=== PATIENT | male | born 1950 | race Caucasian/White ===

== ENCOUNTER 2018-03-20 11:29 | Emergency (ER) | END 2018-03-20 14:12 | disposition short-term general hospital (02) ==

== ENCOUNTER 2018-09-03 07:13 | Inpatient (IN) | payer MEDICARE, BC ==
[~2018-09-03] VITALS: Ht 177.8 cm; Wt 72.0 kg
[~2018-09-03 07:13] MED LIST: AMLO-147 PO; ATEN50TA PO; ATOR10TA65 PO; CLON-379 PO; CLOP75TA27 PO; DOXA2TAB61 PO; FAMO20TA18 PO; GUAI5SYR2 PO; HEP5KI SC; HYDR-3671 PO; ISOS30TA67 PO; NICO-524 TRANSDERM
[2018-09-03] MEDS ORDERED: morphine 4 MG/ML VIAL IV STA ×2 (07:45→10:54)
--- NOTE | 2018-09-03 08:36 | ERD ---
ER Documentation Chief Complaint Chief Complaint CHEST PAIN SINCE THIS AM HPI This is a 68-year-old male with a history of hypertension and end-stage renal disease who is on dialysis Wednesday, Wednesday, Wednesday who presents to the [facility] room for evaluation of chest pain. The patient states that he has had a previous open heart surgery and states that he does have a chest pain which is described as sharp pain in the center of his chest with no radiation no associated nausea, vomiting or shortness of breath. The patient came to the ER for evaluation of his symptoms, he called [id number] transport. ROS All systems reviewed and are negative except as per history of present illness. Medications Home Meds Active Scripts Clonidine Hcl* (Clonidine Hcl*) 0.1 Mg Tab, 0.1 MG PO Q6H PRN for SBP>180 mm Hg for 30 Days, TAB Prov:KASSY CHAVIS NP 10/21/15 Guaifenesin-Dextromethorphan* (Robitussin* DM) 100MG/10MG/5ML Syrup, 10 ML PO Q4H PRN for cough for 30 Days Prov:KASSY CHAVIS NP 10/21/15 Atenolol* (Atenolol*) 50 Mg Tablet, 50 MG PO DAILY for 30 Days, TAB Prov:KASSY CHAVIS NP 10/21/15 Amlodipine Besylate* (Amlodipine Besylate*) 10 Mg Tablet, 10 MG PO DAILY for 30 Days, TAB Prov:KASSY CHAVIS NP 10/21/15 Nicotine* (Nicoderm* Patch) 1 Patch Patch, 1 PATCH TRANSDERM DAILY for 30 Days, PATCH Prov:KARLA RICHARDSON 08/25/15 Isosorbide Mononitrate* (Isosorbide Mononitrate*) 30 Mg Tabsr, 30 MG PO DAILY for 30 Days Prov:KARLA RICHARDSON 08/25/15 Hydralazine Hcl* (Hydralazine Hcl*) 25 Mg Tab, 100 MG PO BID for 30 Days, TAB Prov:KARLA RICHARDSON 08/25/15 Heparin Sodium,Porcine/Pf (Heparin Na 5,000 Units/0.5 Ml) 5,000 Unit/0.5 Ml Soln, 5000 UNIT SC BID for 30 Days Prov:KARLA RICHARDSON 08/25/15 Doxazosin Mesylate* (Cardura*) 2 Mg Tab, 4 MG PO HS for 30 Days, TAB Prov:AKRLA RICHARDSON. 08/25/15 Clopidogrel Bisulfate (Clopidogrel) 75 Mg Tab, 75 MG PO DAILY for 30 Days, TAB Prov:KARLA RICHARDSON. 08/25/15 Reported Medications Atorvastatin Calcium (Atorvastatin Calcium) 10 Mg Tablet, 10 MG PO QHS, TAB 08/22/15 Famotidine* (Famotidine*) 20 Mg Tablet, 20 MG PO BID, TAB 08/22/15 Allergies Allergies: Coded Allergies: No Known Allergies (Verified Allergy, Unknown, 10/20/15) PMhx/Soc History of Surgery: Yes Anesthesia Reaction: No Hx Neurological Disorder: No Hx Respiratory Disorders: No Hx Psychiatric Problems: No Hx Miscellaneous Medical Probl: No Hx Alcohol Use: Yes (OCCASIONAL) Hx Substance Use: No Hx Tobacco Use: Yes Smoking Status: Current every day smoker Physical Exam Vitals Vital Signs Date Temp Pulse Resp B/P (MAP) Pulse Ox O2 O2 Flow FiO2 Time Delivery Rate 09/03/18 98.0 89 18 174/71 99 07:27 (105) 09/03/18 Nasal 07:27 Cannula Physical Exam INITIAL VITAL SIGNS: Reviewed by me GENERAL: The patient is well developed and appropriate for usual state of health in no apparent distress HEENT: Pupils equal, round, and reactive to light. EOMI. There is no scleral icterus. NECK: C-spine is soft and supple, there is no meningismus. There is no cervical lymphadenopathy. LUNGS: Clear to auscultation bilaterally. There are no rales, wheezes or rhonchi. HEART: Regular rate and rhythm, no murmurs, clicks, rubs or gallops. ABDOMEN: Soft, non-tender, non-distended. There are bowel sounds in all four quadrants. No rebound or guarding. EXTREMITIES: There is no peripheral cyanosis or edema. No focal swelling or erythema. NEUROLOGICAL: The patient moves all four extremities with 5/5 strength. Cranial nerves II - XII are intact. Normal gait. Alert and oriented SKIN: Dialysis catheter in right anterior chest wall, there is no apparent rash or petechiae. HEME/LYMPHATIC: There is no evidence of excessive bruising or lymphedema. PSYCHIATRIC: The patient does not appear anxious or depressed. Result Diagram: 09/03/18 0745 09/03/18 0745 Results 24 hrs Laboratory Tests Test 09/03/18 07:45 White Blood Count 9.4 10^3/ul Red Blood Count 4.63 10^6/ul Hemoglobin 12.4 g/dl Hematocrit 38.4 % Mean Corpuscular Volume 82.9 fl Mean Corpuscular Hemoglobin 26.8 pg Mean Corpuscular Hemoglobin Concent 32.3 g/dl Red Cell Distribution Width 18.7 % Platelet Count 285 10^3/UL Mean Platelet Volume 10.3 fl Immature Granulocytes % 0.400 % Neutrophils % 65.7 % Lymphocytes % 19.3 % Monocytes % 11.1 % Eosinophils % 2.4 % Basophils % 1.1 % Nucleated Red Blood Cells % 0.0 /100WBC Immature Granulocytes # 0.040 10^3/ul Neutrophils # 6.2 10^3/ul Lymphocytes # 1.8 10^3/ul Monocytes # 1.0 10^3/ul Eosinophils # 0.2 10^3/ul Basophils # 0.1 10^3/ul Nucleated Red Blood Cells # 0.0 10^3/ul Sodium Level 139 mmol/L Potassium Level 4.3 mmol/L Chloride Level 97 mmol/L Carbon Dioxide Level 31 mmol/L Anion Gap 11 Blood Urea Nitrogen 12 mg/dl Creatinine 4.31 mg/dl Est Glomerular Filtrat Rate mL/min 14 mL/min Glucose Level 119 mg/dl Calcium Level 9.5 mg/dl Troponin I 0.114 ng/ml Current Medications Medications Dose Sig/Marcell Start Time Status Last (Trade) Ordered Route PRN Stop Time Admin Dose Reason Admin Morphine 4 mg ONCE STAT 09/03/18 DC 09/03/18 Sulfate IV 07:45 09/03/18 07:59 (morphine) 07:46 Procedures/MDM Chest X-ray 1V Interpreted by me: Soft Tissue: No acute abnormalities Bones: No acute abnormalities Mediastinum/Cardiac Silhouette/Lungs: [No acute abnormalities] EKG: Rate/Rhythm: [Normal Sinus Rhythm] QRS, ST, T-waves: [No changes consistent w/ acute ischemia] Impression: [Sinus rhythm with LVH This 68-year-old male presents to the ER for evaluation of chest pain. The patient does have a multiple comorbidities including a hypertension, end-stage renal disease and CAD. The patient's EKG is nonischemic, chest x-ray is clear. He was given morphine for his pain and his pain is under control at this time. The patient is negative troponin level at this time however given his age and multiple risk factors he will need to be admitted for serial troponins and possible cardiology consult. I have spoken to her panel physician Dr. Bush who accepts the patient at this time. Departure Diagnosis: Primary Impression: Chest pain Additional Impressions: End stage renal disease Coronary artery disease Condition: Stable JENNIFER LICONA DO Sep 03, 2018 08:36
[2018-09-03] MEDS ORDERED: ONDANSETRON 4 MG INJ IV PRN (09:00)
[2018-09-03] MEDS ORDERED: ACETAMINOPHEN 325 MG TAB PO PRN ×2 (09:00→12:00)
--- NOTE | 2018-09-03 10:25 | HP ---
Date/Time of Note Date/Time of Note DATE: 09/03/18 TIME: 10:25 Assessment/Plan VTE Prophylaxis Pharmacological prophylaxis: heparin Lines/Catheters IV Catheter Type (from [facility]): [facility] [facility] Assessment/Plan Hospital Course 68-year-old Persian male with comorbidities include hypertension, pulmonary hypertension, diastolic heart failure, end-stage renal disease on hemodialysis, CAD status post coronary artery bypass grafting, dyslipidemia, prostatic h ypertrophy, and nicotine use who came to the emergency room with chief complaint of chest pain, who will be admitted to inpatient setting for further treatment and evaluation. 1. Chest pain. -Etiology unclear. -Known history of CAD. -Will rule out ACS. -Less likely PE since the patient is saturating well. -Continue dual antiplatelet therapy since he was getting this at home. -Obtain 2D echocardiogram. -Obtain cardiology consult. 2. Hypertension. -Resume antihypertensives. 3. Diastolic heart failure. -No evidence of any decompensation. 4. End-stage renal disease on hemodialysis. -Last hemodialysis on 09/17/2018. -No evidence of fluid overload. -Potassium levels within normal limits -Obtain nephrology evaluation. 5. Dyslipidemia. -Continue statins. 6. Prostate hypertrophy. -Continue doxazosin. 7. Normocytic anemia. -Most probably anemia chronic kidney disease. -Monitor H&H closely. 8. Nicotine use. -Cessation advised -Provide nicotine patch. Plan: The patient will be admitted to inpatient telemetry floor. The patient will be started on a renal diet. The patient will be started on DVT prophylaxis. The patient will remain a full code. Activities will be as tolerated. The rest of the patient's management will be based on the clinical course, inputs from consultants, and the results of diagnostic studies. Based on the patient's clinical presentation, he most probably requires at least 1 midnight's stay for further management and evaluation of his clinical presen tation. The patient was seen in collaboration with Dr. Bush. Result Diagram: 09/03/18 0745 09/03/18 0745 Results 24hrs Laboratory Tests Test 09/03/18 07:45 White Blood Count 9.4 Red Blood Count 4.63 L Hemoglobin 12.4 L Hematocrit 38.4 L Mean Corpuscular Volume 82.9 Mean Corpuscular Hemoglobin 26.8 L Mean Corpuscular Hemoglobin Concent 32.3 Red Cell Distribution Width 18.7 #H Platelet Count 285 Mean Platelet Volume 10.3 Immature Granulocytes % 0.400 Neutrophils % 65.7 Lymphocytes % 19.3 Monocytes % 11.1 H Eosinophils % 2.4 Basophils % 1.1 Nucleated Red Blood Cells % 0.0 Immature Granulocytes # 0.040 H Neutrophils # 6.2 Lymphocytes # 1.8 Monocytes # 1.0 H Eosinophils # 0.2 Basophils # 0.1 Nucleated Red Blood Cells # 0.0 Sodium Level 139 Potassium Level 4.3 Chloride Level 97 Carbon Dioxide Level 31 Anion Gap 11 Blood Urea Nitrogen 12 Creatinine 4.31 H Est Glomerular Filtrat Rate mL/min 14 L Glucose Level 119 Calcium Level 9.5 Troponin I 0.114 HPI/ROS Admit Date/Time Admit Date/Time Hx of Present Illness Reason for admission: Chest pain. Consultants 1. Cardiology. 2. Nephrology. This is a 68-year-old male with past medical history of hypertension, diastolic heart failure, end-stage renal disease on hemodialysis Wednesday/Wednesday/Wednesday, CAD status post coronary artery bypass grafting, dyslipidemia, prostatic hypertrophy, pulmonary hypertension, and nicotine use. The patient came to the emergency room with a chief complaint of chest pain. The patient verbalized that he has been having chest pain for the past few days that was relieved with sublingual nitroglycerin. However, the last chest pain he had was not relieved even with fourth doses of nitroglycerin. The patient also verbalized associated dyspnea. The patient was verbalizing numbness of the face associated with chest pain. The patient denied any fevers or chills. The patient denied any nausea, vomiting, or diaphoresis. The patient verbalized that he has been compliant with his medications. The patient continues to smoke despite his clinical condition. However, he verbalized that he had decreased smoking from 2 packs a day to half a pack a day. The patient had his last hemodialysis on 09/02/2018. In the emergency room, the patient's initial troponins were negative. The patient's chest x-ray was negative for any acute cardiopulmonary findings. The patient was treated with IV morphine for his underlying chest pain in the emergency room. ROS Constitutional: fatigue Eyes: no complaints ENT: no complaints Respiratory: cough, shortness of breath Cardiovascular: chest pain Gastrointestinal: no complaints Genitourinary: no complaints Musculoskeletal: no complaints Skin: no complaints Neurologic: no complaints Endocrine: no complaints Lymphatic: no complaints Psychological: no complaints Immunologic: no complaints Additional Comments CXR IMPRESSION: No evidence for active cardiopulmonary disease. PMH/Family/Social Past Medical History 1. Hypertension. 2. Pulmonary hypertension. 3. Diastolic heart failure. 4. End-stage renal disease on hemodialysis. 5. CAD status post coronary artery bypass grafting. 6. Dyslipidemia. 7. Prostatic hypertrophy. 8. Nicotine use. Medications Current Medications Ondansetron HCl (Zofran Inj) 4 mg ER BRIDGE PRN IV NAUSEA/VOMITING; Start 09/03/18 at 09:00; Stop 09/04/18 at 08:59 Acetaminophen (Tylenol Tab) 650 mg ER BRIDGE PRN PO .MILD PAIN 1-3 OR TEMP; Start 09/03/18 at 09:00; Stop 09/04/18 at 08:59 Coded Allergies: No Known Allergies (Verified Allergy, Unknown, 09/03/18) Past Surgical History 1. CABG. 2. Right hip surgery. 3. Left upper extremity AV fistula placement. Past Surgical Hx: coronary bypass surgery Family History Significant Family History: hypertension Social History Smoking Status: Current every day smoker (Half a pack a day) Drug Use: none Exam/Review of Systems Vital Signs Vitals Vital Signs Date Temp Pulse Resp B/P (MAP) Pulse Ox O2 O2 Flow FiO2 Time Delivery Rate 09/03/18 98.0 89 18 174/71 99 07:27 (105) 09/03/18 Nasal 07:27 Cannula Exam Exam General: Adequately build 68 year-old male lying in bed in no apparent distress. HEENT: Normocephalic, atraumatic. Eyes: Anicteric sclerae, conjunctivae clear. ENT: Nasal septum midline, oral mucosa moist. Neck supple. Respiratory: Bilaterally diminished breath sounds. No use of accessory muscles of respiration. No adventitious breath sounds. Cardiovascular: S1, S2 heard. Regular rate and rhythm. Abdomen: Soft, nontender, and nondistended. Bowel sounds positive in all 4 quadrants. Genitourinary: Deferred. Extremities: No cyanosis, no clubbing, no edema. Peripheral pulses palpable. Left upper extremity christopher from recent surgical AV fistula placement. Neurologic: Cranial nerves II through XII grossly intact. The patient is awake, alert, and oriented. Skin: Normal skin turgor. No skin rashes. COSME ORELLANA NP Sep 03, 2018 10:25
[2018-09-03] MEDS ORDERED: NITR0.4T39 SL (10:53)
[2018-09-03] MEDS ORDERED: SEVE800T16 ORAL (10:53)
[2018-09-03] MEDS ORDERED: ASPI-817 ORAL (10:53)
[2018-09-03] MEDS ORDERED: OMEG-101 ORAL (10:53)
[2018-09-03] MEDS ORDERED: ATOR-2 ORAL (10:53)
[2018-09-03] MEDS ORDERED: METO-319 ORAL (10:53)
[2018-09-03] MEDS ORDERED: LOSA25TA12 ORAL (10:53)
[2018-09-03] MEDS ORDERED: NACL 0.9% 3 ML SYG IV SCH (12:00)
[2018-09-03] MEDS ORDERED: HYDROCODONE/APAP (5/325) TAB PO PRN (12:30)
[2018-09-03] MEDS: NICOTINE (7 MG/24 HR) PATCH TRANSDERM SCH (12:58)
--- NOTE | 2018-09-03 13:28 | CONS ---
Assessment/Plan Assessment/Plan Assessment/Plan (Daily) 1. ESRD: - HD today with routine access care - monitor daily for HD needs 2. chest pain: with elevated trop - cont to trend trop and ekg - cont medical management 3. HTN: - cont current meds and titrate as needed 4. anemia: - no epogen needed at this time 5. BMD: - monitor ca and phos 6. BPH: - cont doxazosin Consultation Date/Type/Reason Admit Date/Time Type of Consult nephrology Reason for Consultation esrd Date/Time of Note DATE: 09/03/18 TIME: 13:21 Hx of Present Illness Pt is a 68yo M with hx of ESRD, HTN, pulm htn, diastolic HF, CAD, HL and BPH who presented with chest pain and shortness of breath. ER evaluation revealed elevated BP with SBP in the 200's and elevated trop. CXR showed no acute disease. He has been on HD for the past 3 months at a center in [place]. He makes small amount of urine. He is currently being dialyzed via his catheter and has a new AVF that was placed in his upper left arm. Past Medical History as above Home Meds Active Scripts Clonidine Hcl* (Clonidine Hcl*) 0.1 Mg Tab, 0.1 MG PO Q6H PRN for SBP>180 mm Hg for 30 Days, TAB Prov:KASSY CHAVIS NP 10/21/15 Guaifenesin-Dextromethorphan* (Robitussin* DM) 100MG/10MG/5ML Syrup, 10 ML PO Q4H PRN for cough for 30 Days Prov:KASSY CHAVIS NP 10/21/15 Atenolol* (Atenolol*) 50 Mg Tablet, 50 MG PO DAILY for 30 Days, TAB Prov:KASSY CHAVIS V. [employer] 10/21/15 Amlodipine Besylate* (Amlodipine Besylate*) 10 Mg Tablet, 10 MG PO DAILY for 30 Days, TAB Prov:KASSY CHAVIS V. [employer] 10/21/15 Nicotine* (Nicoderm* Patch) 1 Patch Patch, 1 PATCH TRANSDERM DAILY for 30 Days, PATCH Prov:KARLA RICHARDSON 08/25/15 Isosorbide Mononitrate* (Isosorbide Mononitrate*) 30 Mg Tabsr, 30 MG PO DAILY for 30 Days Prov:KARLA RICHARDSON. 08/25/15 Hydralazine Hcl* (Hydralazine Hcl*) 25 Mg Tab, 100 MG PO BID for 30 Days, TAB Prov:KARLA RICHARDSON. 08/25/15 Heparin Sodium,Porcine/Pf (Heparin Na 5,000 Units/0.5 Ml) 5,000 Unit/0.5 Ml Soln, 5000 UNIT SC BID for 30 Days Prov:KARLA RICHARDSON. 08/25/15 Doxazosin Mesylate* (Cardura*) 2 Mg Tab, 4 MG PO HS for 30 Days, TAB Prov:KARLA RICHARDSON. 08/25/15 Clopidogrel Bisulfate (Clopidogrel) 75 Mg Tab, 75 MG PO DAILY for 30 Days, TAB Prov:KARLA RICHARDSON. 08/25/15 Reported Medications Nitroglycerin* (Nitrostat*) 0.4 Mg Tab.subl, 0.4 MG SL Q5MIN PRN for CHEST PAIN, BOTTLE 09/03/18 Sevelamer Carbonate (Sevelamer Carbonate) 800 Mg Tablet, 1 TAB ORAL TID 09/03/18 [place]-3 Acid Ethyl Esters ([place]-3 Acid Ethyl Esters) 1 Gm Capsule, 1 CAP ORAL BID 09/03/18 Atorvastatin* (Atorvastatin*) 80 Mg Tablet, 1 TAB ORAL QHS 09/03/18 Losartan Potassium* (Losartan Potassium*) 25 Mg Tablet, 1 TAB ORAL QHS 09/03/18 Metoprolol Succinate* (Toprol XL*) 50 Mg Tab.er.24h, 1 TAB ORAL DAILY 09/03/18 Aspirin* (Aspirin* EC) 81 Mg Tablet.dr, 1 TAB ORAL DAILY 09/03/18 Atorvastatin Calcium (Atorvastatin Calcium) 10 Mg Tablet, 10 MG PO QHS, TAB 08/22/15 Famotidine* (Famotidine*) 20 Mg Tablet, 20 MG PO BID, TAB 08/22/15 Medications Current Medications Ondansetron HCl (Zofran Inj) 4 mg ER BRIDGE PRN IV NAUSEA/VOMITING; Start 09/03/18 at 09:00; Stop 09/04/18 at 08:59 Acetaminophen (Tylenol Tab) 650 mg ER BRIDGE PRN PO .MILD PAIN 1-3 OR TEMP; Start 09/03/18 at 09:00; Stop 09/04/18 at 08:59 IV Flush (NS 3 ml) 3 ml PER PROTOCOL IV ; Start 09/03/18 at 12:00 Acetaminophen (Tylenol Tab) 650 mg Q6H PRN PO .PAIN 1-3 OR TEMP; Start 09/03/18 at 12:00 Heparin Sodium (Porcine) (Heparin (5000 Units/1ml)) 5,000 unit Q8 SC ; Start 09/03/18 at 14:00 Amlodipine Besylate (Norvasc) 10 mg DAILY PO ; Start 09/04/18 at 09:00 Aspirin (Halfprin) 81 mg DAILY PO ; Start 09/04/18 at 09:00 Atorvastatin Calcium (Lipitor) 40 mg QHS PO ; Start 09/03/18 at 21:00 Clopidogrel Bisulfate (plaVIX) 75 mg DAILY PO ; Start 09/04/18 at 09:00 Doxazosin Mesylate (Cardura) 4 mg HS PO ; Start 09/03/18 at 21:00 Famotidine (Pepcid) 20 mg DAILY PO ; Start 09/03/18 at 13:00 Hydralazine HCl (Apresoline) 100 mg BID PO ; Start 09/03/18 at 21:00 Isosorbide Mononitrate (Imdur) 30 mg DAILY PO ; Start 09/04/18 at 09:00 Metoprolol Succinate (Toprol Xl) 50 mg DAILY PO ; Start 09/04/18 at 09:00 Nicotine (Nicoderm 7 Mg/ 24 Hr) 1 patch DAILY TRANSDERM ; Start 09/03/18 at 13:00 Acetaminophen/ Hydrocodone Bitart ([place] (5/325)) 1 tab Q4H PRN PO MODERATE PAIN LEVEL 4-6; Start 09/03/18 at 12:30 Allergies: Coded Allergies: No Known Allergies (Verified Allergy, Unknown, 09/03/18) Past Surgical History 1. CABG. 2. Right hip surgery. 3. Left upper extremity AV fistula placement. Past Surgical Hx: coronary bypass surgery Family History Significant Family History: no pertinent family hx Social History Smoking Status: Current every day smoker (Half a pack a day) Drug Use: none Exam/Review of Systems Exam Vitals Vital Signs Date Temp Pulse Resp B/P (MAP) Pulse Ox O2 O2 Flow FiO2 Time Delivery Rate 09/03/18 91 18 151/87 98 Room Air 12:43 (108) 09/03/18 98.0 07:27 Exam gen nad cv rrr pulm ctab abd soft, nd, nt +bs ext: no edema Results Result Diagram: 09/03/18 0745 09/03/18 0745 Results 24hrs Laboratory Tests Test 09/03/18 07:45 White Blood Count 9.4 Red Blood Count 4.63 L Hemoglobin 12.4 L Hematocrit 38.4 L Mean Corpuscular Volume 82.9 Mean Corpuscular Hemoglobin 26.8 L Mean Corpuscular Hemoglobin Concent 32.3 Red Cell Distribution Width 18.7 #H Platelet Count 285 Mean Platelet Volume 10.3 Immature Granulocytes % 0.400 Neutrophils % 65.7 Lymphocytes % 19.3 Monocytes % 11.1 H Eosinophils % 2.4 Basophils % 1.1 Nucleated Red Blood Cells % 0.0 Immature Granulocytes # 0.040 H Neutrophils # 6.2 Lymphocytes # 1.8 Monocytes # 1.0 H Eosinophils # 0.2 Basophils # 0.1 Nucleated Red Blood Cells # 0.0 Sodium Level 139 Potassium Level 4.3 Chloride Level 97 Carbon Dioxide Level 31 Anion Gap 11 Blood Urea Nitrogen 12 Creatinine 4.31 H Est Glomerular Filtrat Rate mL/min 14 L Glucose Level 119 Calcium Level 9.5 Troponin I 0.114 Medications Medication Current Medications Ondansetron HCl (Zofran Inj) 4 mg ER BRIDGE PRN IV NAUSEA/VOMITING; Start 09/03/18 at 09:00; Stop 09/04/18 at 08:59 Acetaminophen (Tylenol Tab) 650 mg ER BRIDGE PRN PO .MILD PAIN 1-3 OR TEMP; Start 09/03/18 at 09:00; Stop 09/04/18 at 08:59 IV Flush (NS 3 ml) 3 ml PER PROTOCOL IV ; Start 09/03/18 at 12:00 Acetaminophen (Tylenol Tab) 650 mg Q6H PRN PO .PAIN 1-3 OR TEMP; Start 09/03/18 at 12:00 Heparin Sodium (Porcine) (Heparin (5000 Units/1ml)) 5,000 unit Q8 SC ; Start 09/03/18 at 14:00 Amlodipine Besylate (Norvasc) 10 mg DAILY PO ; Start 09/04/18 at 09:00 Aspirin (Halfprin) 81 mg DAILY PO ; Start 09/04/18 at 09:00 Atorvastatin Calcium (Lipitor) 40 mg QHS PO ; Start 09/03/18 at 21:00 Clopidogrel Bisulfate (plaVIX) 75 mg DAILY PO ; Start 09/04/18 at 09:00 Doxazosin Mesylate (Cardura) 4 mg HS PO ; Start 09/03/18 at 21:00 Famotidine (Pepcid) 20 mg DAILY PO ; Start 09/03/18 at 13:00 Hydralazine HCl (Apresoline) 100 mg BID PO ; Start 09/03/18 at 21:00 Isosorbide Mononitrate (Imdur) 30 mg DAILY PO ; Start 09/04/18 at 09:00 Metoprolol Succinate (Toprol Xl) 50 mg DAILY PO ; Start 09/04/18 at 09:00 Nicotine (Nicoderm 7 Mg/ 24 Hr) 1 patch DAILY TRANSDERM ; Start 09/03/18 at 13:00 Acetaminophen/ Hydrocodone Bitart ([place] (5/325)) 1 tab Q4H PRN PO MODERATE PAIN LEVEL 4-6; Start 09/03/18 at 12:30 JAVIER RANDLE MD Sep 03, 2018 13:28
[2018-09-03] MEDS: FAMOTIDINE 20 MG TAB PO SCH (13:47)
[2018-09-03 13:50] VITALS: BP 178/84; PULSE 95; RESP 18
[2018-09-03] MEDS: HEPARIN 5,000 UNIT/1 ML VIAL SC SCH ×2 (13:56→22:07)
[2018-09-03 14:05] VITALS: Ht 177.8 cm; Wt 72.0 kg
[2018-09-03 15:05] VITALS: BP 165/75; PULSE 92; RESP 18
[2018-09-03 16:11] VITALS: PULSE 89
--- NOTE | 2018-09-03 19:21 | RADRPT ---
Echocardiogram Report Patient Name: Radha CALIX ID: [id number] : 1950 (68y 2m)Study Date: 09/03/2018 2:07:17 PM Gender: Himanshuion #: [id number] Tech: Dat Hurley [facility] Location: [address] Ref.Physician: COSME ORELLANA Height(Cm): BSA: Weight(Kg): Quality: AdequateAccount #: Procedures: Echocardiographic Report: Transthoracic echocardiogram with complete 2D, M-Mode, and doppler examination. Indications: Chest Pain. Measurements: 2D/M Mode Doppler Measurement Value Normal Range Measurement Value Normal Range LVIDd 2D 5.5 [ 4.2 - 5.8 ] cm AV Peak Zeb 1.7 [ 100.0 - 170.0 ] cm/se c LVIDs 2D 4.5 [ 2.5 - 4.0 ] cm AV Peak PG 12.0 [ 2.0 - 9.0 ] mmHg LVPWd 2D 1.2 [ 0.6 - 1.0 ] cm LVOT Peak Zeb 1.0 [ 70.0 - 110.0 ] cm/sec IVSd 2D 1.1 [ 0.6 - 1.0 ] cm LVOT Peak PG 4.0 [ 2.0 - 6.0 ] mmHg AoR Diam 2D 2.5 [ 2.6 - 3.4 ] cm MV E Peak Zeb 0.7 [ 60.0 - 130.0 ] cm/sec EDV 2D 150.0 [ 62.0 - 150.0 ] ml MV A Peak Zeb 1.0 [ 100.0 - 120.0 ] cm/se c ESV 2D 91.5 [ 21.0 - 61.0 ] ml MV E/A 0.7 [ 0.8 - 1.5 ] ratio EF 2D 39.0 [ 52.0 - 72.0 ] percent MV PHT 35.0 [ 20.0 - 100.0 ] msec LA Dimen 2D 3.2 [ 3.0 - 4.0 ] cm MV Decel Time 120 [ 104 - 258 ] msec MV Decel Queens 6 Lat E` Zeb 0.1 [ 10.0 - 15.0 ] cm/sec Lateral E/E` 11.0 [ 1.0 - 2.0 ] ratio Med E` Zeb 0.1 cm/sec MV E/A 0.7 [ 0.8 - 1.5 ] ratio MVA PHT 6.3 [ 2.0 - 4.0 ] cm2 TR Peak Zeb 2.2 [ 100.0 - 280.0 ] cm/se c TR Peak PG 20.0 mmHg RVSP 20.0 [ 10.0 - 36.0 ] mmHg RA Pressure 3.0 mmHg Findings: Left Ventricle: Mild concentric left ventricular hypertrophy. Moderate left ventricular systolic dysfunction. Ejection fraction is visually estimated at 35-40 %. Tissue Doppler/Mitral Doppler indices are consistent with impaired relaxation (Stage I diastolic dysfunction). Multiple segmental wall motion abnormalities. Right Ventricle: Normal right ventricular size. Normal right ventricular systolic function. Left Atrium: The left atrium is normal in size. Right Atrium: The right atrium is normal in size. Atrial Septum: Normal atrial septum. Mitral Valve: Mild mitral annular calcification. Trace mitral regurgitation. Aortic Valve: No significant aortic stenosis or insufficiency. No aortic regurgitation. Tricuspid Valve: Normal appearance of the tricuspid valve. Estimated peak PA systolic pressure 23 mmHg. There is trace tricuspid regurgitation. Pulmonic Valve: Normal pulmonic valve appearance. No evidence of pulmonic regurgitation. Pericardium: Normal pericardium with no significant pericardial effusion. Aorta: Normal aortic root. IVC: Normal size and normal respiratory collapse consistent with normal right atrial pressure. Pulmonary Artery: Not well visualized. Conclusions: Mild concentric left ventricular hypertrophy. Moderate left ventricular systolic dysfunction. Ejection fraction is visually estimated at 35-40 %. Tissue Doppler/Mitral Doppler indices are consistent with impaired relaxation (Stage I diastolic dysfunction). Multiple segmental wall motion abnormalities. Mild mitral annular calcification. Trace mitral regurgitation. Normal appearance of the tricuspid valve. Estimated peak PA systolic pressure 23 mmHg. There is trace tricuspid regurgitation. Normal pericardium with no significant pericardial effusion. Electronically Signed By: Jarred Contreras 2018-09-03 19:20:53 PDT
[2018-09-03 19:51] VITALS: BP 174/84; PULSE 89; RESP 20
[2018-09-03 20:00] VITALS: PULSE 86
--- NOTE | 2018-09-03 20:12 | CONS ---
DATE OF ADMISSION: 09/03/2018 DATE OF CONSULTATION: 09/03/2018 REASON FOR CONSULTATION: Chest pain, assess heart failure. REQUESTING PHYSICIAN: Adiel Valentin from the hospitalist service. HISTORY OF PRESENT ILLNESS: Mr. Mendez is a very pleasant 68-year-old male with history of prior m yocardial infarction, coronary artery disease, status post coronary artery bypass graft surgery 04/19 15, cardiomyopathy with mildly depressed left ventricular ejection fraction approximately 40-44%, hyp ertension, dyslipidemia, chronic kidney disease, tobacco intake who presented with complaints of subs ternal chest pain, poorly described. The patient describes the chest pain as sharp in the center of his chest without radiation. Upon arrival in the Emergency Department, temperature was 98, blood pre ssure 174/71, pulse 89, respiratory rate 18, satting 99%. The patient's labs were notable for white count 9.4, hemoglobin 12.4, and platelet count 285. Sodium 139, potassium 4.3, creatinine 4.3, BUN o f 12. Troponin initially was negative and then positive at 0.891. The patient's chest x-ray reveale d no evidence for acute cardiopulmonary abnormalities. The patient's electrocardiogram was sinus tac hycardia, rate 100, normal axis, left ventricular rate ____ criteria with secondary repolarization ab normalities, possible superimposed ischemic changes. The patient has been admitted to the floor and since admit to floor has had a second troponin which is positive. The patient's systolic blood press ures in the Emergency Department did remain high into the 170s. PAST MEDICAL HISTORY: As above in HPI. MEDICATIONS CURRENTLY IN HOSPITAL: 1. Norvasc 10 mg a day. 2. Aspirin 81 mg daily. 3. Plavix 75 daily. 4. Imdur 30 mg daily. 5. Toprol-XL 50 mg daily. 6. Lipitor 40 mg at bedtime. 7. Cardura 40 mg at bedtime. 8. Hydralazine 100 mg b.i.d. 9. Heparin 5000 subQ q.8 p.r.n. 10. Zofran p.r.n. 11. Tylenol p.r.n. ALLERGIES: NO KNOWN DRUG ALLERGIES. SOCIAL HISTORY: Positive tobacco, social ETOH, no illicit drug use. FAMILY HISTORY: No family history of sudden cardiac or early CAD. REVIEW OF SYSTEMS: As above in HPI. CONSTITUTIONAL: No fevers, chills. PULMONARY: Shortness of breath. CARDIOVASCULAR: No current chest pain. GASTROINTESTINAL: No vomiting. GENITOURINARY: No hematuria. PSYCHIATRIC: No documented psychiatric history. NEUROLOGIC: No documented history of CVA. ENDOCRINE: No documented history of diabetes mellitus. PHYSICAL EXAMINATION: VITAL SIGNS: Temperature 97.4, blood pressure most recently 165/75, pulse 92, respiratory rate 18, s at 94%. GENERAL: The patient is alert, awake, no acute distress. NECK: JVP approximately 8 to 9 cm of water. CHEST: Fair air movement throughout. HEART: Regular rate and rhythm. Normal S1 and S2, I/ systolic murmur. Nondisplaced PMI. ABDOMEN: Positive bowel sounds, soft. EXTREMITIES: No significant pitting edema, 1+ pulses bilateral posterior tibial. LABORATORY DATA: Most recently from today. No further labs for my review at this time. IMAGING STUDIES: As above in HPI revealing no acute cardiopulmonary abnormalities. ELECTROCARDIOGRAM: As above in HPI. No further electrocardiograms for my review at this time. IMPRESSION: 1. Positive troponin, minimal in setting of no history of general disease, but ongoing chest pain, h istory of coronary artery bypass graft. 2. Chest pain on admit. 3. Hypertension, uncontrolled. 4. Dyslipidemia. 5. End-stage renal disease on hemodialysis. 6. Benign prostatic hypertrophy. 7. Anemia. RECOMMENDATIONS: 1. At this time, I would maintain patient on telemetry monitoring to follow rhythm and rates closely . 2. Continue to trend the patient's cardiac enzymes, assess for significant ongoing cardiac damage. 3. Continue the patient's dual antiplatelet therapy with aspirin and Plavix. 4. Continue the patient's current antihypertensives with Toprol, Cardura, hydralazine, and Norvasc. Follow blood pressure after with further titration as necessary to improve overall systolic blood pr essure control. Continue the patient's Imdur for antianginal effect. 5. Continue patient's heparin 5000 subQ q.3 at this time. 6. Check a 2D echo for reassessment of patient's ejection fraction, wall motion, rule out any major abnormalities. 7. If patient continues to remain chest pain free at this time and has no significant increase in tr oponin, we will likely place patient in for a cardiac stress test to take place first in the morning to further assess significance of positive troponin. ____ now. Thank you for allowing me to take part in the care of this patient. I will continue to follow very c losely with you with recommendations to be made as the patient progresses through inpatient hospital clinical course. Dictated By: WILMER HOLLOWAY MD J[facility]/ZACHARY Conf#: [id number] DID#: [id number] CC: ADIEL VALENTIN NP; WILMER ALLISON MD;*[facility]*
[2018-09-03] MEDS ORDERED: ATORVASTATIN 10 MG TAB PO SCH (21:00)
[2018-09-03] MEDS: ATORVASTATIN 40 MG TAB PO SCH (21:56)
[2018-09-03 23:50] VITALS: BP_SYST 180; BP_DIAS 102; BP_DIAS 113; PULSE 90; PULSE 94; RESP 19
[2018-09-04] VITALS (18 sets, daily range): BP systolic 97–191; BP diastolic 56–116; PULSE 80–114; RESP 18–20
[2018-09-04] MEDS: DOXAZOSIN 2 MG TAB PO SCH ×2 (00:47→20:19)
[2018-09-04] MEDS ORDERED: ONDANSETRON 4 MG INJ IV ONE (02:27)
[2018-09-04] MEDS: HEPARIN 1000 UNITS/ML 10 ML INJ CATHETER SCH (02:54)
[2018-09-04] MEDS ORDERED: NITROGLYCERIN (SL) 0.4 MG TAB SL ONE (04:00)
[2018-09-04] MEDS ORDERED: morphine 2 MG INJ IV ONE (04:06)
[2018-09-04] MEDS: HEPARIN 5,000 UNIT/1 ML VIAL SC SCH ×3 (06:42→21:37)
[2018-09-04] MEDS: NICOTINE (7 MG/24 HR) PATCH TRANSDERM SCH (08:08)
[2018-09-04] MEDS: ASPIRIN (EC) 81 MG TAB PO SCH (08:09)
[2018-09-04] MEDS: ISOSORBIDE MONONITRATE(SR)30 MG TAB PO SCH (08:10)
[2018-09-04] MEDS: AMLODIPINE 10 MG TAB PO SCH (08:10)
[2018-09-04] MEDS: FAMOTIDINE 20 MG TAB PO SCH (08:10)
[2018-09-04] MEDS: CLOPIDOGREL 75 MG TAB PO SCH (08:10)
[2018-09-04] MEDS: METOPROLOL (XL) 50 MG TAB PO SCH (08:10)
[2018-09-04] MEDS ORDERED: ISOSORBIDE MONONITRATE(SR)30 MG TAB PO SCH (09:00)
--- NOTE | 2018-09-04 09:40 | PN ---
Date/Time of Note Date/Time of Note DATE: 09/04/18 TIME: 09:35 Assessment/Plan VTE Prophylaxis Risk score (from Ns)>0 risk: 4 SCD applied (from Nsg): Yes Pharmacological prophylaxis: heparin Lines/Catheters [facility] permacath Assessment/Plan Hospital Course SUBJECTIVE: Denies any chest pain. OBJECTIVE: Physical Exam General: Adequately build 68 year-old male lying in bed in no apparent distress. HEENT: Normocephalic, atraumatic. Eyes: Anicteric sclerae, conjunctivae clear. ENT: Nasal septum midline, oral mucosa moist. Neck supple. Respiratory: Bilaterally diminished breath sounds. No use of accessory muscles of respiration. No adventitious breath sounds. Cardiovascular: S1, S2 heard. Regular rate and rhythm. Abdomen: Soft, nontender, and nondistended. Bowel sounds positive in all 4 quadrants. Genitourinary: Deferred. Extremities: No cyanosis, no clubbing, no edema. Peripheral pulses palpable. Left upper extremity christopher from recent surgical AV fistula placement. Neurologic: Cranial nerves II through XII grossly intact. The patient is awake, alert, and oriented. Skin: Normal skin turgor. No skin rashes. Labs & Vitals per chart ASSESSMENT & PLAN 68-year-old [place] male with comorbidities include hypertension, pulmonary hypertension, diastolic heart failure, end-stage renal disease on hemodialysis, CAD status post coronary artery bypass grafting, dyslipidemia, prostatic hypertrophy, and nicotine use who came to the emergency room with chief complaint of chest pain, who was admitted to inpatient setting for further treatment and evaluation. 1. NSTEMI. -Known history of CAD. -Continue dual antiplatelet therapy since he was getting this at home. -Cardiology following. -Plan for cardiac stress test today. 2. Hypertension. -Continue antihypertensives. 3. Diastolic heart failure. -No evidence of any decompensation. 4. End-stage renal disease on hemodialysis. -Last hemodialysis on 09/17/2018. -No evidence of fluid overload. -Potassium levels within normal limits -Nephrology following. 5. Dyslipidemia. -Continue statins. 6. Prostate hypertrophy. -Continue doxazosin. 7. Normocytic anemia. -Most probably anemia chronic kidney disease. -Monitor H&H closely. 8. Nicotine use. -Cessation advised -On a nicotine patch. 9. Fluids, electrolytes, and nutrition. -Renal diet. 10. DVT prophylaxis. -Subcutaneous heparin. 11. Plan. -Continue telemetry monitoring. -Await cardiac stress test. The patient was seen in collaboration with Dr. Bush. Result Diagram: 09/04/18 0623 09/04/18 0623 Results 24hrs Laboratory Tests Test 09/03/18 14:13 09/03/18 14:14 09/03/18 19:37 09/04/18 00:54 Hemoglobin A1c 5.7 Creatine Kinase 58 59 62 Creatine Kinase Index 6.9 6.2 4.8 Creatinine Kinase MB 4.03 H 3.68 H 3.00 H (Mass) Troponin I 0.891 *H 2.050 *H 2.450 *H Hepatitis B Surface NEGATIVE Antigen Hepatitis B Core NEGATIVE Total Antibody Hepatitis C Antibody NEGATIVE Test 09/04/18 06:23 White Blood Count 10.5 Red Blood Count 4.41 L Hemoglobin 12.0 L Hematocrit 36.7 L Mean Corpuscular Volume 83.2 Mean Corpuscular 27.2 L Hemoglobin Mean Corpuscular 32.7 Hemoglobin Concent Red Cell Distribution 18.6 H Width Platelet Count 274 Mean Platelet Volume 10.7 H Immature Granulocytes % 0.500 H Neutrophils % 80.2 H Lymphocytes % 11.1 L Monocytes % 7.4 Eosinophils % 0.2 Basophils % 0.6 Nucleated Red Blood 0.0 Cells % Immature Granulocytes # 0.050 H Neutrophils # 8.4 H Lymphocytes # 1.2 Monocytes # 0.8 Eosinophils # 0.0 Basophils # 0.1 Nucleated Red Blood 0.0 Cells # Sodium Level 137 Potassium Level 4.7 Chloride Level 100 Carbon Dioxide Level 26 Anion Gap 11 Blood Urea Nitrogen 12 Creatinine 3.85 H Est Glomerular Filtrat 16 L Rate mL/min Glucose Level 119 Calcium Level 9.3 Phosphorus Level 3.5 Magnesium Level 2.1 Creatine Kinase 49 Creatine Kinase Index 4.7 Creatinine Kinase MB 2.28 (Mass) Troponin I 1.550 *H Triglycerides Level 195 H Cholesterol Level 218 H LDL Cholesterol, 143 Calculated HDL Cholesterol 36 Cholesterol/HDL Ratio 6.0 Exam/Review of Systems Exam Vitals Vital Signs Date Temp Pulse Resp B/P (MAP) Pulse Ox O2 O2 Flow FiO2 Time Delivery Rate 09/04/18 106 08:00 09/04/18 98.0 18 130/70 97 Nasal 07:00 (90) Cannula Intake and Output 09/03/18 09/03/18 09/04/18 1515:00 23:00 07:00 IntakeIntake Total 300 ml OutputOutput Total 1700 ml BalanceBalance 300 ml -1700 ml Results Results 24hrs Laboratory Tests Test 09/03/18 14:13 09/03/18 14:14 09/03/18 19:37 09/04/18 00:54 Hemoglobin A1c 5.7 Creatine Kinase 58 59 62 Creatine Kinase Index 6.9 6.2 4.8 Creatinine Kinase MB 4.03 H 3.68 H 3.00 H (Mass) Troponin I 0.891 *H 2.050 *H 2.450 *H Hepatitis B Surface NEGATIVE Antigen Hepatitis B Core NEGATIVE Total Antibody Hepatitis C Antibody NEGATIVE Test 09/04/18 06:23 White Blood Count 10.5 Red Blood Count 4.41 L Hemoglobin 12.0 L Hematocrit 36.7 L Mean Corpuscular Volume 83.2 Mean Corpuscular 27.2 L Hemoglobin Mean Corpuscular 32.7 Hemoglobin Concent Red Cell Distribution 18.6 H Width Platelet Count 274 Mean Platelet Volume 10.7 H Immature Granulocytes % 0.500 H Neutrophils % 80.2 H Lymphocytes % 11.1 L Monocytes % 7.4 Eosinophils % 0.2 Basophils % 0.6 Nucleated Red Blood 0.0 Cells % Immature Granulocytes # 0.050 H Neutrophils # 8.4 H Lymphocytes # 1.2 Monocytes # 0.8 Eosinophils # 0.0 Basophils # 0.1 Nucleated Red Blood 0.0 Cells # Sodium Level 137 Potassium Level 4.7 Chloride Level 100 Carbon Dioxide Level 26 Anion Gap 11 Blood Urea Nitrogen 12 Creatinine 3.85 H Est Glomerular Filtrat 16 L Rate mL/min Glucose Level 119 Calcium Level 9.3 Phosphorus Level 3.5 Magnesium Level 2.1 Creatine Kinase 49 Creatine Kinase Index 4.7 Creatinine Kinase MB 2.28 (Mass) Troponin I 1.550 *H Triglycerides Level 195 H Cholesterol Level 218 H LDL Cholesterol, 143 Calculated HDL Cholesterol 36 Cholesterol/HDL Ratio 6.0 Medications Medication Current Medications IV Flush (NS 3 ml) 3 ml PER PROTOCOL IV ; Start 09/03/18 at 12:00 Acetaminophen (Tylenol Tab) 650 mg Q6H PRN PO .PAIN 1-3 OR TEMP; Start 09/03/18 at 12:00 Heparin Sodium (Porcine) (Heparin (5000 Units/1ml)) 5,000 unit Q8 SC Last administered on 09/04/18 06:42; Admin Dose 5,000 UNIT; Start 09/03/18 at 14:00 Amlodipine Besylate (Norvasc) 10 mg DAILY PO Last administered on 09/04/18 08:10; Admin Dose 10 MG; Start 09/04/18 at 09:00 Aspirin (Halfprin) 81 mg DAILY PO Last administered on 09/04/18 08:09; Admin Dose 81 MG; Start 09/04/18 at 09:00 Atorvastatin Calcium (Lipitor) 40 mg QHS PO Last administered on 09/03/18 21:56; Admin Dose 40 MG; Start 09/03/18 at 21:00 Clopidogrel Bisulfate (plaVIX) 75 mg DAILY PO Last administered on 09/04/18 08:10; Admin Dose 75 MG; Start 09/04/18 at 09:00 Doxazosin Mesylate (Cardura) 4 mg HS PO Last administered on 09/04/18 00:47; Admin Dose 4 MG; Start 09/03/18 at 21:00 Famotidine (Pepcid) 20 mg DAILY PO Last administered on 09/04/18 08:10; Admin Dose 20 MG; Start 09/03/18 at 13:00 Hydralazine HCl (Apresoline) 100 mg BID PO Last administered on 09/04/18 08:10; Admin Dose 100 MG; Start 09/03/18 at 21:00 Metoprolol Succinate (Toprol Xl) 50 mg DAILY PO Last administered on 09/04/18 08:10; Admin Dose 50 MG; Start 09/04/18 at 09:00 Nicotine (Nicoderm 7 Mg/ 24 Hr) 1 patch DAILY TRANSDERM ; Start 09/03/18 at 13:00 Acetaminophen/ Hydrocodone Bitart ([place] (5/325)) 1 tab Q4H PRN PO MODERATE PAIN LEVEL 4-6; Start 09/03/18 at 12:30 Isosorbide Mononitrate (Imdur) 60 mg DAILY PO Last administered on 09/04/18 08:10; Admin Dose 60 MG; Start 09/04/18 at 09:00 Heparin Sodium (Porcine) (Heparin (1000 Units/ml)) 3,200 unit AFTER DIALYSIS CATHETER Last administered on 09/04/18 02:54; Admin Dose 3,200 UNIT; Start 09/04/18 at 00:00 COSME ORELLANA NP Sep 04, 2018 09:39
[2018-09-04] MEDS ORDERED: REGADENOSON 0.4 MG/5 ML SYG ONE (12:29)
--- NOTE | 2018-09-04 12:50 | PN ---
Date/Time of Note Date/Time of Note DATE: 09/04/18 TIME: 12:50 Assessment/Plan Lines/Catheters IV Catheter Type (from [facility]): permacath Assessment/Plan Chief Complaint/Hosp Course ESRD & central stenosis: No new events from vascular standpoint. -Can remove every other LUE christopher for now -Continue with Dialysis via left CVC for now Subjective 24 Hr Interval Summary Constitutional: no complaints Exam/Review of Systems Vital Signs Vitals Vital Signs Date Temp Pulse Resp B/P (MAP) Pulse Ox O2 O2 Flow FiO2 Time Delivery Rate 09/05/18 98.0 64 18 110/65 98 Room Air 07:12 (80) Intake and Output 09/04/18 09/04/18 09/05/18 1515:00 23:00 07:00 IntakeIntake Total 460 ml OutputOutput Total 240 ml BalanceBalance 220 ml Results Result Diagram: 09/05/18 0524 09/05/18 0524 RENA VERDUZCO MD Sep 04, 2018 12:50
--- NOTE | 2018-09-04 13:23 | CONS ---
Assessment/Plan Assessment/Plan Hospital Course (Demo Recall) IMPRESSION: 1. Positive troponin, minimal in setting of no history of general disease, but ongoing chest pain, history of coronary artery bypass graft.-uptrended overnight with no sig incrase in CK-MB in the setting of renal failure 2. Chest pain on admit. 3. Hypertension, uncontrolled. 4. Dyslipidemia. 5. End-stage renal disease on hemodialysis. 6. Benign prostatic hypertrophy. 7. Anemia. Recc: -Tele -tesnd cardiac enzymes -lexiscan today to assess significance of positive troponin in the setting of renal; failure -Continue asa/plavix/statin -Continue current BB/hydralazine/imdur -smoking cessation - will f/u echo -possible need for progression to [facility] Consultation Date/Type/Reason Admit Date/Time Sep 03, 2018 at 08:32 Initial Consult Date 09/03/18 Type of Consult Cardiology Reason for Consultation Chest pain/nstemi Requesting Provider: COSME ORELLANA NP Date/Time of Note DATE: 09/04/18 TIME: 13:19 Exam/Review of Systems Vital Signs Vitals Vital Signs Date Temp Pulse Resp B/P (MAP) Pulse Ox O2 O2 Flow FiO2 Time Delivery Rate 09/04/18 97 12:00 09/04/18 97.8 18 113/56 96 Nasal 11:00 (75) Cannula Intake and Output 09/03/18 09/03/18 09/04/18 1515:00 23:00 07:00 IntakeIntake Total 300 ml OutputOutput Total 1700 ml BalanceBalance 300 ml -1700 ml Exam Exam Review of Systems: CONSTITUTIONAL: No fevers, chills. PULMONARY: No sob CARDIOVASCULAR: No current chest pain GASTROINTESTINAL: No nausea/vomiting. GENITOURINARY: No hematuria/dysuria. MUSCULOSKELETAL: No myagias/arthalgias. PSYCHIATRIC: The patient denies depression. NEUROLOGIC: No weakness Constitutional: alert, oriented Psych: no complaints Head: normocephalic ENMT: mucosa pink and moist Neck: supple, jvd (9 cm water) Respiratory: clear to auscultation Cardiovascular: regular rate and rhythm Gastrointestinal: soft, non-tender Musculoskeletal: muscle tone (normal) Extremities: edema (none) Neurological: other (No focal deficits) Labs Result Diagram: 4/7/19 0623 4/7/19 0623 Results 24hrs Laboratory Tests Test 09/03/18 14:13 09/03/18 14:14 09/03/18 19:37 09/04/18 00:54 Hemoglobin A1c 5.7 Creatine Kinase 58 59 62 Creatine Kinase Index 6.9 6.2 4.8 Creatinine Kinase MB 4.03 H 3.68 H 3.00 H (Mass) Troponin I 0.891 *H 2.050 *H 2.450 *H Hepatitis B Surface NEGATIVE Antigen Hepatitis B Core NEGATIVE Total Antibody Hepatitis C Antibody NEGATIVE Test 09/04/18 06:23 09/04/18 12:11 White Blood Count 10.5 Red Blood Count 4.41 L Hemoglobin 12.0 L Hematocrit 36.7 L Mean Corpuscular Volume 83.2 Mean Corpuscular 27.2 L Hemoglobin Mean Corpuscular 32.7 Hemoglobin Concent Red Cell Distribution 18.6 H Width Platelet Count 274 Mean Platelet Volume 10.7 H Immature Granulocytes % 0.500 H Neutrophils % 80.2 H Lymphocytes % 11.1 L Monocytes % 7.4 Eosinophils % 0.2 Basophils % 0.6 Nucleated Red Blood 0.0 Cells % Immature Granulocytes # 0.050 H Neutrophils # 8.4 H Lymphocytes # 1.2 Monocytes # 0.8 Eosinophils # 0.0 Basophils # 0.1 Nucleated Red Blood 0.0 Cells # Sodium Level 137 Potassium Level 4.7 Chloride Level 100 Carbon Dioxide Level 26 Anion Gap 11 Blood Urea Nitrogen 12 Creatinine 3.85 H Est Glomerular Filtrat 16 L Rate mL/min Glucose Level 119 Calcium Level 9.3 Phosphorus Level 3.5 Magnesium Level 2.1 Creatine Kinase 49 54 Creatine Kinase Index 4.7 3.3 Creatinine Kinase MB 2.28 1.80 (Mass) Troponin I 1.550 *H 1.370 *H Triglycerides Level 195 H Cholesterol Level 218 H LDL Cholesterol, 143 Calculated HDL Cholesterol 36 Cholesterol/HDL Ratio 6.0 Medications Medications Current Medications IV Flush (NS 3 ml) 3 ml PER PROTOCOL IV ; Start 09/03/18 at 12:00 Acetaminophen (Tylenol Tab) 650 mg Q6H PRN PO .PAIN 1-3 OR TEMP; Start 09/03/18 at 12:00 Heparin Sodium (Porcine) (Heparin (5000 Units/1ml)) 5,000 unit Q8 SC Last administered on 09/04/18at 06:42; Admin Dose 5,000 UNIT; Start 09/03/18 at 14:00 Amlodipine Besylate (Norvasc) 10 mg DAILY PO Last administered on 09/04/18 08:10; Admin Dose 10 MG; Start 09/04/18 at 09:00 Aspirin (Halfprin) 81 mg DAILY PO Last administered on 09/04/18 08:09; Admin Dose 81 MG; Start 09/04/18 at 09:00 Atorvastatin Calcium (Lipitor) 40 mg QHS PO Last administered on 09/03/18 21:56; Admin Dose 40 MG; Start 09/03/18 at 21:00 Clopidogrel Bisulfate (plaVIX) 75 mg DAILY PO Last administered on 09/04/18 08:10; Admin Dose 75 MG; Start 09/04/18 at 09:00 Doxazosin Mesylate (Cardura) 4 mg HS PO Last administered on 09/04/18 00:47; Admin Dose 4 MG; Start 09/03/18 at 21:00 Famotidine (Pepcid) 20 mg DAILY PO Last administered on 09/04/18 08:10; Admin Dose 20 MG; Start 09/03/18 at 13:00 Hydralazine HCl (Apresoline) 100 mg BID PO Last administered on 09/04/18 08:10; Admin Dose 100 MG; Start 09/03/18 at 21:00 Metoprolol Succinate (Toprol Xl) 50 mg DAILY PO Last administered on 09/04/18 08:10; Admin Dose 50 MG; Start 09/04/18 at 09:00 Nicotine (Nicoderm 7 Mg/ 24 Hr) 1 patch DAILY TRANSDERM ; Start 09/03/18 at 13:00 Acetaminophen/ Hydrocodone Bitart ([place] (5/325)) 1 tab Q4H PRN PO MODERATE PAIN LEVEL 4-6; Start 09/03/18 at 12:30 Isosorbide Mononitrate (Imdur) 60 mg DAILY PO Last administered on 09/04/18 08:10; Admin Dose 60 MG; Start 09/04/18 at 09:00 Heparin Sodium (Porcine) (Heparin (1000 Units/ml)) 3,200 unit AFTER DIALYSIS CATHETER Last administered on 09/04/18 02:54; Admin Dose 3,200 UNIT; Start 09/04/18 at 00:00 WILMER HOLLOWAY Apr 7, 2019 13:23
[2018-09-04] MEDS ORDERED: SOD CHLORIDE 0.9% 1,000 ML IV PRN (13:29)
--- NOTE | 2018-09-04 13:29 | CONS ---
Assessment/Plan Assessment/Plan Assessment/Plan (Daily) 1. ESRD: chronic schedule MWF - HD tomorrow. routine access care (permacatheter and new AVF) - monitor daily for HD needs 2. chest pain: with elevated trop - cont to trend trop - stress test today - cont medical management - cardiology following 3. HTN: - cont current meds and titrate as needed 4. anemia: - no epogen needed at this time 5. BMD: - monitor ca and phos 6. BPH: - cont doxazosin Consultation Date/Type/Reason Admit Date/Time Sep 03, 2018 at 08:32 Initial Consult Date Type of Consult nephrology Requesting Provider: COSME ORELLANA NP Date/Time of Note DATE: 09/04/18 TIME: 13:28 24 HR Interval Summary Free Text/Dictation s/p HD yesterday with shortened treatment due to chest pain, diaphoresis continues to have intermittent chest pain denies shortness of breath dAngelesw rn gen nad cv rrr pulm ctab abd soft, nd, nt +bs ext: no edema Exam/Review of Systems Exam Vitals Vital Signs Date Temp Pulse Resp B/P (MAP) Pulse Ox O2 O2 Flow FiO2 Time Delivery Rate 09/04/18 97 12:00 09/04/18 97.8 18 113/56 96 Nasal 11:00 (75) Cannula Intake and Output 09/03/18 09/03/18 09/04/18 1515:00 23:00 07:00 IntakeIntake Total 300 ml OutputOutput Total 1700 ml BalanceBalance 300 ml -1700 ml Results Result Diagram: 09/04/18 0623 09/04/18 0623 Results 24hrs Laboratory Tests Test 09/03/18 14:13 09/03/18 14:14 09/03/18 19:37 09/04/18 00:54 Hemoglobin A1c 5.7 Creatine Kinase 58 59 62 Creatine Kinase Index 6.9 6.2 4.8 Creatinine Kinase MB 4.03 H 3.68 H 3.00 H (Mass) Troponin I 0.891 *H 2.050 *H 2.450 *H Hepatitis B Surface NEGATIVE Antigen Hepatitis B Core NEGATIVE Total Antibody Hepatitis C Antibody NEGATIVE Test 09/04/18 06:23 09/04/18 12:11 White Blood Count 10.5 Red Blood Count 4.41 L Hemoglobin 12.0 L Hematocrit 36.7 L Mean Corpuscular Volume 83.2 Mean Corpuscular 27.2 L Hemoglobin Mean Corpuscular 32.7 Hemoglobin Concent Red Cell Distribution 18.6 H Width Platelet Count 274 Mean Platelet Volume 10.7 H Immature Granulocytes % 0.500 H Neutrophils % 80.2 H Lymphocytes % 11.1 L Monocytes % 7.4 Eosinophils % 0.2 Basophils % 0.6 Nucleated Red Blood 0.0 Cells % Immature Granulocytes # 0.050 H Neutrophils # 8.4 H Lymphocytes # 1.2 Monocytes # 0.8 Eosinophils # 0.0 Basophils # 0.1 Nucleated Red Blood 0.0 Cells # Sodium Level 137 Potassium Level 4.7 Chloride Level 100 Carbon Dioxide Level 26 Anion Gap 11 Blood Urea Nitrogen 12 Creatinine 3.85 H Est Glomerular Filtrat 16 L Rate mL/min Glucose Level 119 Calcium Level 9.3 Phosphorus Level 3.5 Magnesium Level 2.1 Creatine Kinase 49 54 Creatine Kinase Index 4.7 3.3 Creatinine Kinase MB 2.28 1.80 (Mass) Troponin I 1.550 *H 1.370 *H Triglycerides Level 195 H Cholesterol Level 218 H LDL Cholesterol, 143 Calculated HDL Cholesterol 36 Cholesterol/HDL Ratio 6.0 Medications Medication Current Medications IV Flush (NS 3 ml) 3 ml PER PROTOCOL IV ; Start 09/03/18 at 12:00 Acetaminophen (Tylenol Tab) 650 mg Q6H PRN PO .PAIN 1-3 OR TEMP; Start 09/03/18 at 12:00 Heparin Sodium (Porcine) (Heparin (5000 Units/1ml)) 5,000 unit Q8 SC Last administered on 09/04/18at 06:42; Admin Dose 5,000 UNIT; Start 09/03/18 at 14:00 Amlodipine Besylate (Norvasc) 10 mg DAILY PO Last administered on 09/04/18at 08 :10; Admin Dose 10 MG; Start 09/04/18 at 09:00 Aspirin (Halfprin) 81 mg DAILY PO Last administered on 09/04/18at 08:09; Admin Dose 81 MG; Start 09/04/18 at 09:00 Atorvastatin Calcium (Lipitor) 40 mg QHS PO Last administered on 09/03/18at 21:56; Admin Dose 40 MG; Start 09/03/18 at 21:00 Clopidogrel Bisulfate (plaVIX) 75 mg DAILY PO Last administered on 09/04/18 08:10; Admin Dose 75 MG; Start 09/04/18 at 09:00 Doxazosin Mesylate (Cardura) 4 mg HS PO Last administered on 09/04/18 00:47; Admin Dose 4 MG; Start 09/03/18 at 21:00 Famotidine (Pepcid) 20 mg DAILY PO Last administered on 09/04/18 08:10; Admin Dose 20 MG; Start 09/03/18 at 13:00 Hydralazine HCl (Apresoline) 100 mg BID PO Last administered on 09/04/18 08:10; Admin Dose 100 MG; Start 09/03/18 at 21:00 Metoprolol Succinate (Toprol Xl) 50 mg DAILY PO Last administered on 09/04/18 08:10; Admin Dose 50 MG; Start 09/04/18 at 09:00 Nicotine (Nicoderm 7 Mg/ 24 Hr) 1 patch DAILY TRANSDERM ; Start 09/03/18 at 13:00 Acetaminophen/ Hydrocodone Bitart ([place] (5/325)) 1 tab Q4H PRN PO MODERATE PAIN LEVEL 4-6; Start 09/03/18 at 12:30 Isosorbide Mononitrate (Imdur) 60 mg DAILY PO Last administered on 09/04/18 08:10; Admin Dose 60 MG; Start 09/04/18 at 09:00 Heparin Sodium (Porcine) (Heparin (1000 Units/ml)) 3,200 unit AFTER DIALYSIS CATHETER Last administered on 09/04/18 02:54; Admin Dose 3,200 UNIT; Start 09/04/18 at 00:00 JAVIER RANDLE MD Sep 04, 2018 13:29
[2018-09-04] MEDS ORDERED: SODIUM CHLORIDE 0.9% 1L BAG IV PRN (13:30)
[2018-09-04] MEDS ORDERED: HEPARIN 1000 UNITS/ML 10 ML INJ CATHETER SCH (13:30)
[2018-09-04] MEDS ORDERED: ALBUMIN HUMAN 25% 100 ML IV PRN (13:30)
--- NOTE | 2018-09-04 14:13 | CARRPT ---
DATE OF PROCEDURE: 09/04/2018 REASON FOR STRESS TESTING: Chest pain, followup troponin in setting of renal failure, assess for sig nificance. BASELINE VITAL SIGNS AND ELECTROCARDIOGRAM: Pulse 96, blood pressure 104/55. Electrocardiogram base line normal sinus rhythm, rate 98, normal axis, normal intervals, with a left ventricular hypertrophy and secondary repolarization I's and possible superimposed ischemic changes. PROCEDURE: The patient underwent standard Lexiscan infusion protocol over 10 seconds followed by rad iotracer. The patient's test was stopped at completion of protocol. Maximal achieved blood pressure during the test 95/52. Maximum achieved heart rate during the test 106. ELECTROCARDIOGRAM FINDINGS: The patient did not develop any new Lexiscan-induced ST or T-wave change s from baseline abnormalities. No documented PVCs, had some exaggeration of previously noted repolar ization abnormalities in the anterolateral leads. SYMPTOMS: The patient complains of chest pain, shortness breath during stress test that resolved in recovery. IMPRESSION: 1. No Lexiscan-induced ST or T-wave changes from baseline abnormalities diagnostic for ischemia. 2. Complaints of chest pain during stress test that resolved in recovery. 3. No documented premature ventricular contractions during stress testing. 4. Report of nuclear images to follow in separate dictation. Dictated By: WILMER VERGARA/ZACHARY Conf#: [id number] DID#: [id number] CC: WILMER ALLISON MD;*End*
[2018-09-04] MEDS: ATORVASTATIN 40 MG TAB PO SCH (20:20)
[2018-09-05] VITALS (26 sets, daily range): BP systolic 110–178; BP diastolic 59–84; PULSE 64–105; RESP 14–23
[2018-09-05] MEDS ORDERED: NITROGLYCERIN (SL) 0.4 MG TAB SL PRN (05:30)
[2018-09-05] MEDS: HEPARIN 5,000 UNIT/1 ML VIAL SC SCH ×3 (05:40→22:19)
--- NOTE | 2018-09-05 08:23 | CONS ---
DATE OF ADMISSION: 09/03/2018 DATE OF CONSULTATION: 09/03/2018 VASCULAR SURGERY CONSULTATION Dear Doctors: Mr. Mendez is a 68-year-old gentleman with a known history of noncompliance and smok ing who presented to [facility] secondary to complaints of chest pain. The patient has a plethora of medical conditions and has been evaluated by us secondary to central venous stenos is and left upper extremity fistula axis creation. At the moment, the patient denies shortness of br eath, chest pain, nausea, vomiting, fever or chills. REVIEW OF SYSTEMS: A 14-point review performed and negative except what is mentioned in the HPI. PAST MEDICAL HISTORY: Entails noncompliance, myocardial infarction, coronary artery disease, cardiom yopathy, hypertension, dyslipidemia, end-stage renal disease, anemia of chronic disease, tobacco use. PAST SURGICAL HISTORY: Right chest wall catheter, CABG in 2014, left upper extremity brachiobasilic fistula creation and transposition. ALLERGIES: NO KNOWN DRUG ALLERGIES. SOCIAL HISTORY: Active smoker 1 pack per day for many years. Social ETOH. No illicit drug use. FAMILY HISTORY: Positive for hypertension. PHYSICAL EXAMINATION: GENERAL: Alert and oriented x3, no apparent distress. HEENT: Normocephalic, atraumatic. Mucosa moist. NECK: Supple, no carotid bruit. PULMONARY: Coarse breath sounds bilaterally. CARDIOVASCULAR: S1, S2 present. ABDOMEN: Soft, nontender, nondistended. Bowel sounds positive. RIGHT LOWER EXTREMITY: Palpable femoral pulse, nonpalpable pedal pulse. Motor, sensory intact. Cap refill 3 seconds. LEFT LOWER EXTREMITY: Palpable femoral pulse, nonpalpable pedal pulse. Motor, sensory intact. Cap refill 3 seconds. Left upper extremity palpable brachial pulse. Motor and sensory intact. Cap refi ll 3 seconds. Surgical scar with christopher intact and well healed. Fistula with bruit and thrill pres ent. ASSESSMENT AND PLAN: 1. End-stage renal disease: It seems the patient has been coming along well from the standpoint of his left upper extremity brachiobasilic fistula transposition. We will plan to remove every other st aple on him for now. The patient will be scheduled for an outpatient fistula surveillance next week or so and prior to cannulation of his access. 2. Central stenosis: Currently, the patient has a PermCath in his right chest wall. We will plan t o follow up with the patient and intervene upon eventual removal of the PermCatheter. For now, sarahi nue with his dialysis sessions via the chest wall catheter. 3. Optimize vascular status (BP meds, diet, nutrition, exercise, sugar control, and antiplatelets). 4. Discussed smoking cessation with the patient and provided intervention and management in regardin g to it. 5. The patient to be evaluated by our cardiology colleagues for further workup secondary to his ches t pain. Thank you for allowing us to partake in the care of your patient. Please call with any questions. D iscussed findings, plan and management with the patient and he understands all that is involved and I answered all of his questions. Dictated By: RENA CLEMENTS/ZACHARY Conf#: [id number] DID#: [id number] CC: WILMER ALLISON MD; WILMER HOLLOAWY MD;*EndCC*
[2018-09-05] MEDS: AMLODIPINE 10 MG TAB PO SCH (08:27)
[2018-09-05] MEDS: ISOSORBIDE MONONITRATE(SR)30 MG TAB PO SCH (08:27)
[2018-09-05] MEDS: FAMOTIDINE 20 MG TAB PO SCH (08:28)
[2018-09-05] MEDS: NICOTINE (7 MG/24 HR) PATCH TRANSDERM SCH (08:28)
[2018-09-05] MEDS: ASPIRIN (EC) 81 MG TAB PO SCH (08:28)
[2018-09-05] MEDS: CLOPIDOGREL 75 MG TAB PO SCH (08:28)
[2018-09-05] MEDS: METOPROLOL (XL) 50 MG TAB PO SCH (08:29)
--- NOTE | 2018-09-05 09:08 | PN ---
DATE: 09/05/2018 SUBJECTIVE: The patient is stable, no events overnight. No fevers, chills, nausea, vomiting. OBJECTIVE: VITAL SIGNS: Blood pressure 110/65, respiration 18, pulse 64, temperature 98.0. HEENT: Head is normocephalic. NECK: Supple. HEART: Regular rate. LUNGS: Show diminished breath sounds at the base. ABDOMEN: Soft, nontender to palpation without rebound or guarding. EXTREMITIES: Negative for clubbing, cyanosis, no edema. DERMATOLOGIC: No rashes. MUSCULOSKELETAL: No joint effusion. NEUROLOGIC: No change in exam. MEDICATIONS: The patient's medications have been reviewed. LABORATORY DATA: The laboratory data has been reviewed. ASSESSMENT AND PLAN: 1. End-stage renal disease. The patient is on dialysis Wednesday, Wednesday, Wednesday with access is Per m-A-Cath. Plan is for hemodialysis today. We will dialyze 3 hours 2k bath, calcium 2.5. 2. Anemia. Monitor H and H levels. Will give Epogen as needed. 3. Mineral bone disorder, monitor calcium and phosphorus levels. 4. Hypertension. Continue current blood pressure regimen. Continue to also check dialysis. 5. Chest pain with elevated troponin, possible non-ST elevation myocardial infarction. Continue cur rent medical management. Follow up with cardiology. The patient is pending stress test. 6. Benign prostatic hypertrophy. Continue medical management. Dictated By: REGINA TAYLOR DO NR/NTS Conf#: [id number] DID#: [id number] CC: WILMER ALLISON MD; WILMER HOLLOWAY MD;*EndCC*
[2018-09-05] MEDS ORDERED: IODIXANOL LOCM 100 ML BTL ONE ×4 (11:46→15:30)
[2018-09-05] MEDS ORDERED: MIDAZOLAM 1 MG/ML 2 ML INJ ONE ×2 (11:46→13:40)
[2018-09-05] MEDS ORDERED: FENTAnyl 50 MCG/ML VIAL ONE ×2 (11:46→13:37)
[2018-09-05] MEDS ORDERED: LIDOCAINE 1% (MDV) 20 ML INJ ONE (11:46)
[2018-09-05] MEDS ORDERED: BIVALIRUDIN 250MG /NS 50 ML 50 ML IVPB ONE (12:53)
[2018-09-05] MEDS ORDERED: NITROGLYCERIN (IC) 100 MCG/ML INJ ONE (12:54)
[2018-09-05] MEDS ORDERED: IOHEXOL 350MG/ML 50 ML BTL ONE (13:04)
--- NOTE | 2018-09-05 13:11 | RADRPT ---
Vent Rate: 87 bpm RR Interval: 0 msec [place] Interval: 144 msec QRS Duration: 112 msec QT Interval: 410 msec QTC Interval: 493 msec P-R-T [place]: 88 - 37 - 0 degrees Normal sinus rhythm Left ventricular hypertrophy with repolarization abnormality Lateral ST segment abnormality Cannot rule out Inferior infarct , age undetermined Abnormal ECG Electronically Signed By: Mick Zepeda
[2018-09-05] MEDS ORDERED: CLOPIDOGREL 300 MG TAB ONE (13:52)
--- NOTE | 2018-09-05 13:52 | CONS ---
Assessment/Plan Assessment/Plan Hospital Course (Demo Recall) IMPRESSION: 1. Positive troponin, minimal in setting of no history of general disease, but ongoing chest pain, history of coronary artery bypass graft.-uptrended overnight with no sig incrase in CK-MB in the setting of renal failure 2. Chest pain on admit. 3. Hypertension, uncontrolled. 4. Dyslipidemia. 5. End-stage renal disease on hemodialysis. 6. Benign prostatic hypertrophy. 7. Anemia. Recc: -Tele -trend cardiac enzymes -Continue asa/plavix/statin -Continue current BB/hydralazine/imdur -smoking cessation -[facility] with possible PTCA/stent today due to ongoing chest pain Consultation Date/Type/Reason Admit Date/Time Sep 03, 2018 at 08:32 Initial Consult Date 09/03/18 Type of Consult Cardiology Reason for Consultation Nstemi Requesting Provider: COSME ORELLANA NP Date/Time of Note DATE: 09/05/18 TIME: 13:49 Exam/Review of Systems Vital Signs Vitals Vital Signs Date Temp Pulse Resp B/P (MAP) Pulse Ox O2 O2 Flow FiO2 Time Delivery Rate 09/05/18 97.9 83 18 130/60 96 Room Air 11:24 (83) Intake and Output 09/04/18 09/04/18 09/05/18 1515:00 23:00 07:00 IntakeIntake Total 460 ml OutputOutput Total 240 ml BalanceBalance 220 ml Exam Exam Review of Systems: CONSTITUTIONAL: No fevers, chills. PULMONARY: No sob CARDIOVASCULAR: intermittent chest pain GASTROINTESTINAL: No nausea/vomiting. GENITOURINARY: No hematuria/dysuria. MUSCULOSKELETAL: No myagias/arthalgias. PSYCHIATRIC: The patient denies depression. NEUROLOGIC: No weakness Constitutional: alert Psych: no complaints Head: normocephalic ENMT: mucosa pink and moist Neck: supple, jvd (9 cm water) Respiratory: diminished breath sounds Cardiovascular: regular rate and rhythm Gastrointestinal: soft, non-tender Musculoskeletal: muscle tone (normal) Extremities: edema (none) Neurological: other (No focal deficits) Labs Result Diagram: 09/05/18 0524 09/05/18 0524 Results 24hrs Laboratory Tests Test 09/05/18 05:24 White Blood Count 8.3 # Red Blood Count 4.04 L Hemoglobin 11.0 L Hematocrit 33.4 L Mean Corpuscular Volume 82.7 Mean Corpuscular Hemoglobin 27.2 L Mean Corpuscular Hemoglobin Concent 32.9 Red Cell Distribution Width 18.6 H Platelet Count 285 Mean Platelet Volume 11.1 H Immature Granulocytes % 0.400 Neutrophils % 62.6 Lymphocytes % 22.5 Monocytes % 12.4 H Eosinophils % 1.6 Basophils % 0.5 Nucleated Red Blood Cells % 0.0 Immature Granulocytes # 0.030 Neutrophils # 5.2 Lymphocytes # 1.9 Monocytes # 1.0 H Eosinophils # 0.1 Basophils # 0.0 Nucleated Red Blood Cells # 0.0 Sodium Level 138 Potassium Level 4.4 Chloride Level 100 Carbon Dioxide Level 26 Anion Gap 12 Blood Urea Nitrogen 22 H Creatinine 5.65 H Est Glomerular Filtrat Rate mL/min 10 L Glucose Level 125 Calcium Level 9.4 Phosphorus Level 4.0 Magnesium Level 2.2 Total Bilirubin 0.3 Direct Bilirubin 0.00 Indirect Bilirubin 0.3 Aspartate Amino Transf (AST/SGOT) 20 Alanine Aminotransferase (ALT/SGPT) 15 Alkaline Phosphatase 101 Creatinine Kinase MB (Mass) 1.22 Troponin I 1.520 *H Total Protein 6.7 Albumin 3.3 Globulin 3.40 H Albumin/Globulin Ratio 0.97 Medications Medications Current Medications IV Flush (NS 3 ml) 3 ml PER PROTOCOL IV ; Start 09/03/18 at 12:00 Acetaminophen (Tylenol Tab) 650 mg Q6H PRN PO .PAIN 1-3 OR TEMP; Start 09/03/18 at 12:00 Heparin Sodium (Porcine) (Heparin (5000 Units/1ml)) 5,000 unit Q8 SC Last administered on 09/04/18at 21:37; Admin Dose 5,000 UNIT; Start 09/03/18 at 14:00 Amlodipine Besylate (Norvasc) 10 mg DAILY PO Last administered on 09/04/18at 08:10; Admin Dose 10 MG; Start 09/04/18 at 09:00 Aspirin (Halfprin) 81 mg DAILY PO Last administered on 09/05/18at 08:28; Admin Dose 81 MG; Start 09/04/18 at 09:00 Atorvastatin Calcium (Lipitor) 40 mg QHS PO Last administered on 09/04/18at 20:20; Admin Dose 40 MG; Start 09/03/18 at 21:00 Clopidogrel Bisulfate (plaVIX) 75 mg DAILY PO Last administered on 09/05/18 08:28; Admin Dose 75 MG; Start 09/04/18 at 09:00 Doxazosin Mesylate (Cardura) 4 mg HS PO Last administered on 09/04/18 00:47; Admin Dose 4 MG; Start 09/03/18 at 21:00 Famotidine (Pepcid) 20 mg DAILY PO Last administered on 09/05/18 08:28; Admin Dose 20 MG; Start 09/03/18 at 13:00 Hydralazine HCl (Apresoline) 100 mg BID PO Last administered on 09/04/18 08:10; Admin Dose 100 MG; Start 09/03/18 at 21:00 Metoprolol Succinate (Toprol Xl) 50 mg DAILY PO Last administered on 09/04/18 08:10; Admin Dose 50 MG; Start 09/04/18 at 09:00 Nicotine (Nicoderm 7 Mg/ 24 Hr) 1 patch DAILY TRANSDERM Last administered on 09/05/18 08:28; Admin Dose 1 PATCH; Start 09/03/18 at 13:00 Acetaminophen/ Hydrocodone Bitart ([place] (5/325)) 1 tab Q4H PRN PO MODERATE PAIN LEVEL 4-6; Start 09/03/18 at 12:30 Isosorbide Mononitrate (Imdur) 60 mg DAILY PO Last administered on 09/04/18 08:10; Admin Dose 60 MG; Start 09/04/18 at 09:00 Heparin Sodium (Porcine) (Heparin (1000 Units/ml)) 3,200 unit AFTER DIALYSIS CATHETER Last administered on 09/04/18at 02:54; Admin Dose 3,200 UNIT; Start 09/04/18 at 00:00 Heparin Sodium (Porcine) (Heparin (1000 Units/ml)) 4,000 unit AFTER DIALYSIS CATHETER ; Start 09/04/18 at 13:30 Sodium Chloride 1,000 ml @ 0 mls/hr Q0M PRN IV TO KEEP SBP ABOVE 90; Start 09/04/18 at 13:29 Albumin Human 100 ml @ 100 mls/hr WITH DIALYSIS PRN IV SBP <90 DURING DIALYSIS; Start 09/04/18 at 13:30 Sodium Chloride (NS) -To prime the dialy... DIRECTED FOR HD PRN IV HD; Start 09/04/18 at 13:30 Nitroglycerin (Nitroglycerin (Sl Tab) 0.4 Mg) 1 tab Q5M PRN SL ANGINA Last administered on 09/05/18at 05:33; Admin Dose 1 TAB; Start 09/05/18 at 05:30 WILMER HOLLOWAY Sep 05, 2018 13:52
[2018-09-05] MEDS ORDERED: SOD CHLORIDE 0.9% 1,000 ML IV SCH (13:54)
--- NOTE | 2018-09-05 13:54 | SIPON ---
Date/Time of Note Date/Time of Note DATE: 09/05/18 TIME: 13:52 Operative Report Preoperative Diagnosis 1.Nstemi 2.chest pain 3.obstructive cad Postoperative Diagnosis 1.PTCA/stent stent x 2 to SVG to diag 2. PTCA/stent x 1 to SVG to OM Operation/Procedure Performed 1.[facility] 2.PTCA/stent x 1 to SVG-Diag and x1 SVG-OM Surgeon see signature line clinical education assistant Aaron Anesthesia: moderate sedation Estimated blood loss: minimal Transfusion Required none Specimen none Grafts/Implants none Complications none WILMER HOLLOWAY Sep 05, 2018 13:54
[2018-09-05] MEDS ORDERED: AL HYDROX/MG HYDROX/SIMETH 30 ML CUP PO PRN (14:00)
[2018-09-05] MEDS ORDERED: ONDANSETRON 4 MG INJ IV PRN (14:00)
[2018-09-05] MEDS ORDERED: ACETAMINOPHEN 325 MG TAB PO PRN (14:00)
[2018-09-05] MEDS ORDERED: OXYCODONE/ACETAMINOPHEN (5/325) TAB PO PRN (14:00)
[2018-09-05] MEDS ORDERED: ZOLPIDEM 5 MG TAB PO PRN (14:00)
--- NOTE | 2018-09-05 14:59 | CARRPT ---
DATE OF PROCEDURE: 09/05/2018 TYPE OF PROCEDURES: 1. Left heart catheterization. 2. Coronary angiography. 3. Bypass graft angiography including TREVINO arterial graft. 4. Femoral angiography. 5. Percutaneous transluminal coronary angioplasty with placement of Synergy drug-eluting stent x1 to saphenous vein graft supplying diagonal, 3.5 x 12 mm and 3.5 x 38 additionally to saphenous vein gra ft supplying diagonal. 6. PTCA and stent placement with Resolute drug-eluting stent x1 to saphenous vein graft supplying ob tuse marginal 3.5 x 15 mm. 7. Moderate conscious sedation. ATTENDING PHYSICIAN: Wilmer Contreras MD REFERRING PHYSICIAN: Adiel Valentin NP, from the hospitalist service. HISTORY OF PRESENT ILLNESS: Mr. Mendez is a 68-year-old male with history of hypertension, dyslipi demia, end-stage renal disease, who initially complains of substernal chest pain, ruled in for non-ST -elevation myocardial infarction, undergone cardiac stress test revealing scar, but continued to have significant chest pain; therefore, the patient was brought to cardiac geotechnical laboratory technician in order to assess po ssibility of significant obstructive coronary artery disease, recurrent, lending symptoms of chest pa in, positive troponins consistent with [id number] myocardial infarction and was admitted to the hospital. DESCRIPTION OF PROCEDURE: After informed consent was obtained, the patient was brought to the [facility] cardiac catheterization lab where his right femoral artery was prepped in a [facility] sterile fashion. A 2% lidocaine was infiltrated to the right femoral artery to achieve adequate anesthesia. Using the modified Seldinger technique, the femoral artery was cannulated and a 6-Faroese arterial sheath was placed. A 6-Faroese JL4 catheter was used to cannulate the left main coronary os tium. With contrast injection, multiple views of the left coronary system were obtained. A JL4 was removed over a guidewire and a JR4 was used to cannulate the right coronary arterial ostium. With co ntrast injection, multiple views of the right coronary system were obtained. JL4 was then used to ca nnulate the saphenous vein graft supplying an obtuse marginal, saphenous vein graft supplying a diago nal, a stump presumably possibly to right-sided vessel and finally a TREVINO arterial graft to LAD, afte r which with contrast injection, multiple views of this graft were obtained. At this time, JR was re moved and a pigtail was placed in the LV. LVEDP was measured and pulled back across the aortic valve and placed in the aortic root. Aortic root angiography was undertaken to identify any further graft s which were not found. Subsequently at this time, we moved directly to interventional procedure. T he patient had been given Angiomax bolus continuous infusion. A JR4 was used to cannulate the saphen ous graft supplying the diagonal and at this time, we attempted to pass a filter distal protection wi re, but due to very tight stenosis, we were not able to actually pass the filter wire through this bl ockage. Subsequently, this was pulled back and a [place] guidewire was passed distal to the lesion an d the lesion was pretreated with balloon inflations with a 2.5 x 12 mm balloon up to 16 atmospheres x 2 in distal lesion and the mid lesion. At this time, the balloon was removed and the most distal les ion and the lesion proximal were stented with 3.5 x 38 mm extending back just into the ostium of the most proximal lesion and subsequently this was covered with a 3.5 x 12 mm. Both of these stents were deployed at 16 atmospheres and the second stent and had the stent delivery balloon to stent the over lap area and postdilations were made to 16 atmospheres. Stent balloon was removed. Followup angiogr am was obtained revealing excellent deployment of both stents, COLBY 3 flow throughout the vessel, no signs of complication including perforation, dissection or downstream embolization. Subsequently at this time, the patient's interventional guidewire and guides were removed and was now used to cannula te the saphenous graft supplying an obtuse marginal. Once again we were not able to use the filter w starr distal protection on this one as this was anastomotic distal lesion. Subsequently, balanced guid ewires were passed all the way to distal lesion just at the anastomosis. This was pretreated with a balloon inflation 2.5 x 12 mm up to 16 atmospheres. This was removed and the lesion was stented with a 3.5 x 15 mm drug-eluting stent deployed at 16 atmospheres. The stent balloon was removed. Follow up angiogram was obtained revealing excellent deployment of stent, COLBY 3 flow throughout the vessel, no signs of complication including perforation or dissection. Subsequently at this time, the initia l guide and guidewires were removed. The patient was given additional 300 mg p.o. Plavix load. He a lready received aspirin in the morning. This completed the procedure. There were no noted complicat ions. FINDINGS: Coronary angiography: Left main is severely diseased up to likely initially at 4 mm vesse l leading up to approximately 90% diffusely throughout the left main. LAD proximally is a 3 mm vesse l and shortly after its takeoff is 100% occluded ending in multiple septal branches. The circumflex proximally is a 3 mm vessel and has a 95% stenosis in a faint trickle of blood flow and then becomes 100% occluded. There are 2 very small branching obtuse marginals that branched midway through it, duncan b 2 mm vessels with moderate diffuse disease up to a 50% to 60%, very short territory. The patient's right coronary artery proximally is a 3 mm vessel, has a long stented zone from proximal all the way down to the distal zone with stent being widely patent with no significant in-stent restenosis and t his is a dominant vessel and therefore gives off a PDA which appears to have some disease in it, poss ibly 80% to 90% lesion and a very small portion of the PDA that becomes likely 2 mm ____ vessel. The posterolateral branch is a sub 2 mm vessel with no significant focal stenoses. Bypass graft angiography showed the patient to have a saphenous vein graft supplying distal obtuse ma rginal with very tight distal anastomosis lesion of approximately 90% to 95% and saphenous graft supp lying diagonal which contains a very tight 95% stenosis followed by another 90% stenosis followed by 70% stenosis distal anastomosis. Additionally, there was a stump that was found presumably to a righ t-sided vessel. The TREVINO arterial graft is a widely patent graft with no significant intervening yaneth noses which then supplies a reasonable distal size LAD. Subclavian angiography has no subclavian yaneth nosis. PTCA and stent placement: Prior to PTCA and stent placement within the patient's saphenous vein roman t supplying a diagonal, there is a very tight 95% stenosis followed by 90% stenosis followed by 70% s tenosis. Post-PTCA and stent placement with no residual stenosis, COLBY 3 flow throughout the vessel, no signs of complication including perforation, dissection. PTCA and stent placement within the saphenous graft supplying obtuse marginal: Prior to PTCA and yaneth nt placement of the vessel, there is a very focal 90% stenosis. Post-PTCA and stent placement, there was no residual stenosis, COLBY 3 flow throughout the vessel, no signs of complication including perf oration, dissection or downstream embolization. Femoral angiography revealed the patient to have mild to moderate disease of the right external iliac and very tight lesion just at the patient's profunda femoral artery with absence of what appears to be superficial femoral artery. Possibly, the patient has had previous lower extremity surgery that s hould lower it down, but appears have some collateral flow ____ distally. TOTAL FLUOROSCOPY TIME: 28 minutes. TOTAL CONTRAST: 100 mL. IMPRESSION: 1. Multivessel [place] coronary artery disease involving 100% occlusion of the patient's LAD and dist al occlusion and small PDA. 2. Widely patent long stented zone in the patient's right coronary artery. 3. Diseased saphenous vein graft supplying diagonal, status post successful PTCA and stent placement x2. 4. High-grade stenosis saphenous vein graft supplying obtuse marginal, status post successful PTCA a nd stent placement x1. 5. Elevated left heart filling pressures of 34. No significant aortic stenosis by gradient. RECOMMENDATIONS: In light of procedure findings at this time, we would: 1. Maintain the patient on aspirin 81 mg 1 tablet p.o. daily and Plavix 75 mg 1 tab p.o. daily for a t least 1 year. 2. Maximize medical management. 3. Aggressive risk factor reduction. 4. The patient will be readmitted to the PACU for post-catheterization observation sheath removal as the patient was found to have significant peripheral arterial disease on femoral angiogram and there fore precluding closure device placement and continued management of presenting symptoms. Dictated By: WILMER VERGARA/ZACHARY Conf#: [id number] DID#: [id number] CC: WILMER ALLISON MD;*EndCC*
--- NOTE | 2018-09-05 15:06 | PN ---
Date/Time of Note Date/Time of Note DATE: 09/05/18 TIME: 15:04 Assessment/Plan VTE Prophylaxis Risk score (from Ns)>0 risk: 3 SCD applied (from Ns): Yes SCD contraindicated: low risk/ambulating Pharmacological prophylaxis: NA/contraindicated Pharm contraindication: surgical contra Lines/Catheters [facility] Saline Lock Assessment/Plan Hospital Course Assessment and plan 1. Stable angina status post 2 stents to saphenous vein grafts, stable observe 2. Chronic coronary disease, will continue risk factor modification 3. Tobacco abuse status post counseling offered patch 4. Dyslipidemia not at goal consider step up statin versus Repatha 5. Essential hypertension 6. ESRD/dialysis status 7. COPD? 8. BPH 9. Pulmonary hypertension vs cor pulmonale Subjective: Events noted Objective: Vital signs stable sinus Physical exam Deferred patient in veterinary laboratory technician Result Diagram: 09/05/1824 09/05/1824 Results 24hrs Laboratory Tests Test 09/05/18 05:24 White Blood Count 8.3 # Red Blood Count 4.04 L Hemoglobin 11.0 L Hematocrit 33.4 L Mean Corpuscular Volume 82.7 Mean Corpuscular Hemoglobin 27.2 L Mean Corpuscular Hemoglobin Concent 32.9 Red Cell Distribution Width 18.6 H Platelet Count 285 Mean Platelet Volume 11.1 H Immature Granulocytes % 0.400 Neutrophils % 62.6 Lymphocytes % 22.5 Monocytes % 12.4 H Eosinophils % 1.6 Basophils % 0.5 Nucleated Red Blood Cells % 0.0 Immature Granulocytes # 0.030 Neutrophils # 5.2 Lymphocytes # 1.9 Monocytes # 1.0 H Eosinophils # 0.1 Basophils # 0.0 Nucleated Red Blood Cells # 0.0 Sodium Level 138 Potassium Level 4.4 Chloride Level 100 Carbon Dioxide Level 26 Anion Gap 12 Blood Urea Nitrogen 22 H Creatinine 5.65 H Est Glomerular Filtrat Rate mL/min 10 L Glucose Level 125 Calcium Level 9.4 Phosphorus Level 4.0 Magnesium Level 2.2 Total Bilirubin 0.3 Direct Bilirubin 0.00 Indirect Bilirubin 0.3 Aspartate Amino Transf (AST/SGOT) 20 Alanine Aminotransferase (ALT/SGPT) 15 Alkaline Phosphatase 101 Creatinine Kinase MB (Mass) 1.22 Troponin I 1.520 *H Total Protein 6.7 Albumin 3.3 Globulin 3.40 H Albumin/Globulin Ratio 0.97 Exam/Review of Systems Exam Vitals Vital Signs Date Temp Pulse Resp B/P (MAP) Pulse Ox O2 O2 Flow FiO2 Time Delivery Rate 09/05/18 97.9 83 18 130/60 96 Room Air 11:24 (83) Intake and Output 09/04/18 09/04/18 09/05/18 1515:00 23:00 07:00 IntakeIntake Total 460 ml OutputOutput Total 240 ml BalanceBalance 220 ml Results Results 24hrs Laboratory Tests Test 09/05/18 05:24 White Blood Count 8.3 # Red Blood Count 4.04 L Hemoglobin 11.0 L Hematocrit 33.4 L Mean Corpuscular Volume 82.7 Mean Corpuscular Hemoglobin 27.2 L Mean Corpuscular Hemoglobin Concent 32.9 Red Cell Distribution Width 18.6 H Platelet Count 285 Mean Platelet Volume 11.1 H Immature Granulocytes % 0.400 Neutrophils % 62.6 Lymphocytes % 22.5 Monocytes % 12.4 H Eosinophils % 1.6 Basophils % 0.5 Nucleated Red Blood Cells % 0.0 Immature Granulocytes # 0.030 Neutrophils # 5.2 Lymphocytes # 1.9 Monocytes # 1.0 H Eosinophils # 0.1 Basophils # 0.0 Nucleated Red Blood Cells # 0.0 Sodium Level 138 Potassium Level 4.4 Chloride Level 100 Carbon Dioxide Level 26 Anion Gap 12 Blood Urea Nitrogen 22 H Creatinine 5.65 H Est Glomerular Filtrat Rate mL/min 10 L Glucose Level 125 Calcium Level 9.4 Phosphorus Level 4.0 Magnesium Level 2.2 Total Bilirubin 0.3 Direct Bilirubin 0.00 Indirect Bilirubin 0.3 Aspartate Amino Transf (AST/SGOT) 20 Alanine Aminotransferase (ALT/SGPT) 15 Alkaline Phosphatase 101 Creatinine Kinase MB (Mass) 1.22 Troponin I 1.520 *H Total Protein 6.7 Albumin 3.3 Globulin 3.40 H Albumin/Globulin Ratio 0.97 Medications Medication Current Medications IV Flush (NS 3 ml) 3 ml PER PROTOCOL IV ; Start 09/03/18 at 12:00 Heparin Sodium (Porcine) (Heparin (5000 Units/1ml)) 5,000 unit Q8 SC Last administered on 09/04/18at 21:37; Admin Dose 5,000 UNIT; Start 09/03/18 at 14:00 Amlodipine Besylate (Norvasc) 10 mg DAILY PO Last administered on 09/04/18at 08:10; Admin Dose 10 MG; Start 09/04/18 at 09:00 Aspirin (Halfprin) 81 mg DAILY PO Last administered on 09/05/18 08:28; Admin Dose 81 MG; Start 09/04/18 at 09:00 Atorvastatin Calcium (Lipitor) 40 mg QHS PO Last administered on 09/04/18 20:20; Admin Dose 40 MG; Start 09/03/18 at 21:00 Clopidogrel Bisulfate (plaVIX) 75 mg DAILY PO Last administered on 09/05/18 08:28; Admin Dose 75 MG; Start 09/04/18 at 09:00 Doxazosin Mesylate (Cardura) 4 mg HS PO Last administered on 09/04/18 00:47; Admin Dose 4 MG; Start 09/03/18 at 21:00 Famotidine (Pepcid) 20 mg DAILY PO Last administered on 09/05/18 08:28; Admin Dose 20 MG; Start 09/03/18 at 13:00 Hydralazine HCl (Apresoline) 100 mg BID PO Last administered on 09/04/18 08:10; Admin Dose 100 MG; Start 09/03/18 at 21:00 Metoprolol Succinate (Toprol Xl) 50 mg DAILY PO Last administered on 09/04/18 08:10; Admin Dose 50 MG; Start 09/04/18 at 09:00 Nicotine (Nicoderm 7 Mg/ 24 Hr) 1 patch DAILY TRANSDERM Last administered on 09/05/18 08:28; Admin Dose 1 PATCH; Start 09/03/18 at 13:00 Acetaminophen/ Hydrocodone Bitart ([place] (5/325)) 1 tab Q4H PRN PO MODERATE PAIN LEVEL 4-6; Start 09/03/18 at 12:30 Isosorbide Mononitrate (Imdur) 60 mg DAILY PO Last administered on 09/04/18 08:10; Admin Dose 60 MG; Start 09/04/18 at 09:00 Heparin Sodium (Porcine) (Heparin (1000 Units/ml)) 3,200 unit AFTER DIALYSIS CATHETER Last administered on 09/04/18 02:54; Admin Dose 3,200 UNIT; Start 09/04/18 at 00:00 Heparin Sodium (Porcine) (Heparin (1000 Units/ml)) 4,000 unit AFTER DIALYSIS CATHETER ; Start 09/04/18 at 13:30 Sodium Chloride 1,000 ml @ 0 mls/hr Q0M PRN IV TO KEEP SBP ABOVE 90; Start 09/04/18 at 13:29 Albumin Human 100 ml @ 100 mls/hr WITH DIALYSIS PRN IV SBP <90 DURING DIALYSIS; Start 09/04/18 at 13:30 Sodium Chloride (NS) -To prime the dialy... DIRECTED FOR HD PRN IV HD; Start 09/04/18 at 13:30 Nitroglycerin (Nitroglycerin (Sl Tab) 0.4 Mg) 1 tab Q5M PRN SL ANGINA Last administered on 09/05/18at 05:33; Admin Dose 1 TAB; Start 09/05/18 at 05:30 Miscellaneous Information (* Miscellaneous Pharmacy Order) Hold all Metformin ... ONCE XX ; Start 09/05/18 at 14:00; Stop 09/07/18 at 13:59 Acetaminophen (Tylenol Tab) 650 mg Q4H PRN PO PAIN; Start 09/05/18 at 14:00 Oxycodone/ Acetaminophen (Percocet (5/ 325)) 1 tab Q4H PRN PO PAIN; Start 09/05/18 at 14:00 Zolpidem Tartrate (Ambien) 5 mg HS MAY REPEAT X 1 PRN PO INSOMNIA; Start 09/05/18 at 14:00 Al Hydrox/Mg Hydrox/Simethicone (Mag-Al Plus) 30 ml Q4H PRN PO GASTROINTESTINAL UPSET; Start 09/05/18 at 14:00 Ondansetron HCl (Zofran Inj) 4 mg Q4H PRN IV NAUSEA AND/OR VOMITING; Start 09/05/18 at 14:00 Sodium Chloride 1,000 ml @ 75 mls/hr [id number] IV ; Start 09/05/18 at 13:54; Stop 09/06/18 at 03:13 HERNANDEZ BUCHANAN MD Sep 05, 2018 15:06
[2018-09-05] MEDS ORDERED: morphine 2 MG INJ IV STA (15:26)
[2018-09-05] MEDS ORDERED: ATROPINE 1 MG/10 ML SYRINGE ONE (16:31)
[2018-09-05] MEDS: DOXAZOSIN 2 MG TAB PO SCH (20:19)
[2018-09-05] MEDS: ATORVASTATIN 40 MG TAB PO SCH (20:19)
[2018-09-06] VITALS (23 sets, daily range): BP systolic 113–152; BP diastolic 57–88; PULSE 66–109; RESP 18–20
[2018-09-06] MEDS: HEPARIN 5,000 UNIT/1 ML VIAL SC SCH ×3 (06:00→21:04)
[2018-09-06] MEDS: ISOSORBIDE MONONITRATE(SR)30 MG TAB PO SCH (09:00)
[2018-09-06] MEDS: AMLODIPINE 10 MG TAB PO SCH (09:00)
[2018-09-06] MEDS: METOPROLOL (XL) 50 MG TAB PO SCH (09:00)
--- NOTE | 2018-09-06 09:12 | PN ---
DATE: 09/06/2018 SUBJECTIVE: The patient is stable, no events overnight. Patient is pending hemodialysis [place] OBJECTIVE: VITAL SIGNS: Blood pressure is 146/79, pulse 100, respiration 18, temperature 98.1. HEENT: Head is normocephalic. NECK: Supple. HEART: Regular rate. LUNGS: Show diminished breath sounds at the base. ABDOMEN: Soft, nontender to palpation without rebound or guarding. EXTREMITIES: Negative for clubbing, cyanosis, no edema. DERMATOLOGIC: No rashes. MUSCULOSKELETAL: No joint effusion. NEUROLOGIC: No change in exam. MEDICATIONS: The patient's medications have been reviewed. LABORATORY DATA: Has been reviewed. ASSESSMENT AND PLAN: 1. End-stage renal disease. The patient is having hemodialysis today, currently off schedule. Antic ipate hemodialysis again tomorrow. 2. Anemia. Monitor hemoglobin and hematocrit levels. 3. Mineral bone disorder. Monitor calcium and phosphorus levels. 4. Hypertension. Continue current blood pressure regimen. 5. Chest pain. The patient is status post cardiac cath with PCI performed to the saphenous vein graf stewart. Continue medical management. Follow up with cardiology. 6. Benign prostatic hypertrophy. Continue medical management. Dictated By: REGINA MCGRATH/ZACHARY Conf#: [id number] DID#: [id number]
[2018-09-06] MEDS: CLOPIDOGREL 75 MG TAB PO SCH (09:40)
[2018-09-06] MEDS: ASPIRIN (EC) 81 MG TAB PO SCH (09:40)
[2018-09-06] MEDS: FAMOTIDINE 20 MG TAB PO SCH (09:40)
[2018-09-06] MEDS: NICOTINE (7 MG/24 HR) PATCH TRANSDERM SCH (09:41)
--- NOTE | 2018-09-06 09:43 | CONS ---
Consult Date/Type/Reason Admit Date/Time Sep 05, 2018 at 15:08 Initial Consult Date Requesting Provider: COSME ORELLANA NP Date/Time of Note DATE: 09/06/18 TIME: 09:40 Subjective NO acute events - pt comfortable - no CP now - HD currentlky - s/p BART -no CP noted. ROS: No fever, no chills, no nausea, no vomiting, no diarrhea/constipation No recent weight changes No chest pain, no PND, no orthopnea - mild SOB No dizziness, blurred vision No thirst, no heat or cold intolerance Objective Vitals Vital Signs Date Temp Pulse Resp B/P (MAP) Pulse Ox O2 O2 Flow FiO2 Time Delivery Rate 09/06/18 104 09:30 09/06/18 98.1 18 146/79 92 Nasal 07:28 (101) Cannula 09/06/18 2.0 07:10 Intake and Output 09/05/18 09/05/18 09/06/18 1515:00 23:00 07:00 IntakeIntake Total 240 ml 100 ml OutputOutput Total 100 ml 200 ml BalanceBalance 140 ml -100 ml Exam General: WN/WD/NAD, AOx 1-2 HEENT: Unicetric/atraumatic/EOMI (stable) NECK: JVD elevated, no thyromegaly Lymph: no lymphadenopathy HEART: regular with no S3, II/ systolic murmur at apex, PMI L LUNGS: Coarse sounds, mild wheezing ABD: soft, NT, ND, +BS : Intact Neuro: non focal SKIN: chronic changes EXT: trace edema Results/Medications Result Diagram: 09/06/18 0554 09/06/18 0554 Results 24 hrs Laboratory Tests Test 09/05/18 15:05 09/06/18 05:54 Creatinine Kinase MB (Mass) 1.09 2.15 Troponin I 1.310 *H 2.990 *H White Blood Count 7.5 Red Blood Count 3.96 L Hemoglobin 10.7 L Hematocrit 32.6 L Mean Corpuscular Volume 82.3 Mean Corpuscular Hemoglobin 27.0 L Mean Corpuscular Hemoglobin Concent 32.8 Red Cell Distribution Width 18.8 H Platelet Count 276 Mean Platelet Volume 11.3 H Immature Granulocytes % 0.300 Neutrophils % 68.8 Lymphocytes % 16.0 Monocytes % 12.5 H Eosinophils % 1.7 Basophils % 0.7 Nucleated Red Blood Cells % 0.0 Immature Granulocytes # 0.020 Neutrophils # 5.1 Lymphocytes # 1.2 Monocytes # 0.9 Eosinophils # 0.1 Basophils # 0.1 Nucleated Red Blood Cells # 0.0 Sodium Level 134 L Potassium Level 4.5 Chloride Level 99 Carbon Dioxide Level 23 Anion Gap 12 Blood Urea Nitrogen 26 H Creatinine 6.98 H Est Glomerular Filtrat Rate mL/min 8 L Glucose Level 90 Calcium Level 9.2 Magnesium Level 2.2 Creatine Kinase 64 Creatine Kinase Index 3.4 Thyroid Stimulating Hormone (TSH) 0.389 L Home Meds Active Scripts Clonidine Hcl* (Clonidine Hcl*) 0.1 Mg Tab, 0.1 MG PO Q6H PRN for SBP>180 mm Hg for 30 Days, TAB Prov:KASSY CHAVIS NP 10/21/15 Guaifenesin-Dextromethorphan* (Robitussin* DM) 100MG/10MG/5ML Syrup, 10 ML PO Q4H PRN for cough for 30 Days Prov:KASSY CHAVIS NP 10/21/15 Atenolol* (Atenolol*) 50 Mg Tablet, 50 MG PO DAILY for 30 Days, TAB Prov:KASSY CHAVIS NP 10/21/15 Amlodipine Besylate* (Amlodipine Besylate*) 10 Mg Tablet, 10 MG PO DAILY for 30 Days, TAB Prov:KASSY CHAVIS NP 10/21/15 Nicotine* (Nicoderm* Patch) 1 Patch Patch, 1 PATCH TRANSDERM DAILY for 30 Days, PATCH Prov:KARLA RICHARDSON 08/25/15 Isosorbide Mononitrate* (Isosorbide Mononitrate*) 30 Mg Tabsr, 30 MG PO DAILY for 30 Days Prov:KARLA RICHARDSON 08/25/15 Hydralazine Hcl* (Hydralazine Hcl*) 25 Mg Tab, 100 MG PO BID for 30 Days, TAB Prov:KARLA RICHARDSON 08/25/15 Heparin Sodium,Porcine/Pf (Heparin Na 5,000 Units/0.5 Ml) 5,000 Unit/0.5 Ml Soln, 5000 UNIT SC BID for 30 Days Prov:KARLA RICHARDSON 08/25/15 Doxazosin Mesylate* (Cardura*) 2 Mg Tab, 4 MG PO HS for 30 Days, TAB Prov:KARLA RICHARDSON. 08/25/15 Clopidogrel Bisulfate (Clopidogrel) 75 Mg Tab, 75 MG PO DAILY for 30 Days, TAB Prov:KARLA RICHARDSON. 08/25/15 Reported Medications Nitroglycerin* (Nitrostat*) 0.4 Mg Tab.subl, 0.4 MG SL Q5MIN PRN for CHEST PAIN, BOTTLE 09/03/18 Sevelamer Carbonate (Sevelamer Carbonate) 800 Mg Tablet, 1 TAB ORAL TID 09/03/18 Napa-3 Acid Ethyl Esters ([place]-3 Acid Ethyl Esters) 1 Gm Capsule, 1 CAP ORAL BID 09/03/18 Atorvastatin* (Atorvastatin*) 80 Mg Tablet, 1 TAB ORAL QHS 09/03/18 Losartan Potassium* (Losartan Potassium*) 25 Mg Tablet, 1 TAB ORAL QHS 09/03/18 Metoprolol Succinate* (Toprol XL*) 50 Mg Tab.er.24h, 1 TAB ORAL DAILY 09/03/18 Aspirin* (Aspirin* EC) 81 Mg Tablet.dr, 1 TAB ORAL DAILY 09/03/18 Atorvastatin Calcium (Atorvastatin Calcium) 10 Mg Tablet, 10 MG PO QHS, TAB 08/22/15 Famotidine* (Famotidine*) 20 Mg Tablet, 20 MG PO BID, TAB 08/22/15 Medications Current Medications IV Flush (NS 3 ml) 3 ml PER PROTOCOL IV ; Start 09/03/18 at 12:00 Heparin Sodium (Porcine) (Heparin (5000 Units/1ml)) 5,000 unit Q8 SC Last administered on 09/05/18at 22:19; Admin Dose 5,000 UNIT; Start 09/03/18 at 14:00 Amlodipine Besylate (Norvasc) 10 mg DAILY PO Last administered on 09/04/18at 08:1 0; Admin Dose 10 MG; Start 09/04/18 at 09:00 Aspirin (Halfprin) 81 mg DAILY PO Last administered on 09/05/18at 08:28; Admin Dose 81 MG; Start 09/04/18 at 09:00 Atorvastatin Calcium (Lipitor) 40 mg QHS PO Last administered on 09/05/18at 20:19; Admin Dose 40 MG; Start 09/03/18 at 21:00 Clopidogrel Bisulfate (plaVIX) 75 mg DAILY PO Last administered on 09/05/18 08:28; Admin Dose 75 MG; Start 09/04/18 at 09:00 Doxazosin Mesylate (Cardura) 4 mg HS PO Last administered on 09/05/18 20:19; Admin Dose 4 MG; Start 09/03/18 at 21:00 Famotidine (Pepcid) 20 mg DAILY PO Last administered on 09/05/18 08:28; Admin Dose 20 MG; Start 09/03/18 at 13:00 Hydralazine HCl (Apresoline) 100 mg BID PO Last administered on 09/05/18 20:18; Admin Dose 100 MG; Start 09/03/18 at 21:00 Metoprolol Succinate (Toprol Xl) 50 mg DAILY PO Last administered on 09/04/18 08:10; Admin Dose 50 MG; Start 09/04/18 at 09:00 Nicotine (Nicoderm 7 Mg/ 24 Hr) 1 patch DAILY TRANSDERM Last administered on 09/05/18 08:28; Admin Dose 1 PATCH; Start 09/03/18 at 13:00 Acetaminophen/ Hydrocodone Bitart ([place] (5/325)) 1 tab Q4H PRN PO MODERATE PAIN LEVEL 4-6; Start 09/03/18 at 12:30 Isosorbide Mononitrate (Imdur) 60 mg DAILY PO Last administered on 09/04/18 08:10; Admin Dose 60 MG; Start 09/04/18 at 09:00 Heparin Sodium (Porcine) (Heparin (1000 Units/ml)) 3,200 unit AFTER DIALYSIS CATHETER Last administered on 09/04/18at 02:54; Admin Dose 3,200 UNIT; Start 09/04/18 at 00:00 Heparin Sodium (Porcine) (Heparin (1000 Units/ml)) 4,000 unit AFTER DIALYSIS CATHETER ; Start 09/04/18 at 13:30 Sodium Chloride 1,000 ml @ 0 mls/hr Q0M PRN IV TO KEEP SBP ABOVE 90; Start 09/04/18 at 13:29 Albumin Human 100 ml @ 100 mls/hr WITH DIALYSIS PRN IV SBP <90 DURING DIALYSIS; Start 09/04/18 at 13:30 Sodium Chloride (NS) -To prime the dialy... DIRECTED FOR HD PRN IV HD; Start 09/04/18 at 13:30 Nitroglycerin (Nitroglycerin (Sl Tab) 0.4 Mg) 1 tab Q5M PRN SL ANGINA Last administered on 09/05/18at 05:33; Admin Dose 1 TAB; Start 09/05/18 at 05:30 Miscellaneous Information (* Miscellaneous Pharmacy Order) Hold all Metformin ... ONCE XX ; Start 09/05/18 at 14:00; Stop 09/07/18 at 13:59 Acetaminophen (Tylenol Tab) 650 mg Q4H PRN PO PAIN; Start 09/05/18 at 14:00 Oxycodone/ Acetaminophen (Percocet (5/ 325)) 1 tab Q4H PRN PO PAIN; Start 09/05/18 at 14:00 Zolpidem Tartrate (Ambien) 5 mg HS MAY REPEAT X 1 PRN PO INSOMNIA; Start 09/05/18 at 14:00 Al Hydrox/Mg Hydrox/Simethicone (Mag-Al Plus) 30 ml Q4H PRN PO GASTROINTESTINAL UPSET; Start 09/05/18 at 14:00 Ondansetron HCl (Zofran Inj) 4 mg Q4H PRN IV NAUSEA AND/OR VOMITING; Start 09/05/18 at 14:00 Assessment/Plan Hospital Course (Demo Recall) 1. Positive troponin, minimal in setting of no history of general disease, but ongoing chest pain, history of coronary artery bypass graft.-uptrended overnight with no sig incrase in CK-MB in the setting of renal failure - s/p BART per DR. Contreras - on therapy - no CP now 2. Chest pain on admit - resolved. 3. Hypertension, uncontrolled - BP better now, tolerating HD well. 4. Dyslipidemia - treaed. 5. End-stage renal disease on hemodialysis - on HD nw, will follow. 6. Benign prostatic hypertrophy. 7. Anemia - H/H 10.7 - stable. BALAJI KRISHNAMURTHY MD Sep 06, 2018 09:43
[2018-09-06] MEDS: HEPARIN 1000 UNITS/ML 10 ML INJ CATHETER SCH (10:46)
--- NOTE | 2018-09-06 12:24 | PN ---
Date/Time of Note Date/Time of Note DATE: 09/06/18 TIME: 12:21 Assessment/Plan VTE Prophylaxis Risk score (from Ns)>0 risk: 4 SCD applied (from Ns): No SCD contraindicated: low risk/ambulating Pharmacological prophylaxis: LMWH, heparin Lines/Catheters IV Catheter Type (from [facility]): Saline Lock Urinary Cath still in place: No Assessment/Plan Hospital Course Assessment and plan 1. Stable angina sp 2 BART to svg grafts, stable observe 2. Chr CAD, will continue risk factor modification 3. Tobacco abuse sp counseling offered patch 4. Dyslipidemia, not at goal consider step up statin vs Repatha 5. Essential hypertension 6. ESRD/dialysis status 7. COPD? 8. BPH 9. Pulmonary hypertension vs cor pulmonale 10. Delirium, reorient, DC tethers check cxr. May transfer to [facility]. S: 09/06: No active cp dyspnea. Delirium. Pulling out IVs/ oxygen/ monitor. His dialysis access looks a little pulled out. O: Vital signs stable sinus Physical exam No JVD pallor droop Regular no murmur gallop Clear no tachypnea; right chest axis clean dry and intact but he may have been pulled out a little Bs+ nt nd no RRG No edema Result Diagram: 09/06/18 0554 09/06/18 0554 Results 24hrs Laboratory Tests Test 09/05/18 15:05 09/06/18 05:54 Creatinine Kinase MB (Mass) 1.09 2.15 Troponin I 1.310 *H 2.990 *H White Blood Count 7.5 Red Blood Count 3.96 L Hemoglobin 10.7 L Hematocrit 32.6 L Mean Corpuscular Volume 82.3 Mean Corpuscular Hemoglobin 27.0 L Mean Corpuscular Hemoglobin Concent 32.8 Red Cell Distribution Width 18.8 H Platelet Count 276 Mean Platelet Volume 11.3 H Immature Granulocytes % 0.300 Neutrophils % 68.8 Lymphocytes % 16.0 Monocytes % 12.5 H Eosinophils % 1.7 Basophils % 0.7 Nucleated Red Blood Cells % 0.0 Immature Granulocytes # 0.020 Neutrophils # 5.1 Lymphocytes # 1.2 Monocytes # 0.9 Eosinophils # 0.1 Basophils # 0.1 Nucleated Red Blood Cells # 0.0 Sodium Level 134 L Potassium Level 4.5 Chloride Level 99 Carbon Dioxide Level 23 Anion Gap 12 Blood Urea Nitrogen 26 H Creatinine 6.98 H Est Glomerular Filtrat Rate mL/min 8 L Glucose Level 90 Calcium Level 9.2 Magnesium Level 2.2 Creatine Kinase 64 Creatine Kinase Index 3.4 Thyroid Stimulating Hormone (TSH) 0.389 L Exam/Review of Systems Exam Vitals Vital Signs Date Temp Pulse Resp B/P (MAP) Pulse Ox O2 O2 Flow FiO2 Time Delivery Rate 09/06/18 98.2 66 20 128/66 95 Nasal 11:41 (86) Cannula 09/06/18 2.0 08:00 Intake and Output 09/05/18 09/05/18 09/06/18 1515:00 23:00 07:00 IntakeIntake Total 240 ml 100 ml OutputOutput Total 100 ml 200 ml BalanceBalance 140 ml -100 ml Results Results 24hrs Laboratory Tests Test 09/05/18 15:05 09/06/18 05:54 Creatinine Kinase MB (Mass) 1.09 2.15 Troponin I 1.310 *H 2.990 *H White Blood Count 7.5 Red Blood Count 3.96 L Hemoglobin 10.7 L Hematocrit 32.6 L Mean Corpuscular Volume 82.3 Mean Corpuscular Hemoglobin 27.0 L Mean Corpuscular Hemoglobin Concent 32.8 Red Cell Distribution Width 18.8 H Platelet Count 276 Mean Platelet Volume 11.3 H Immature Granulocytes % 0.300 Neutrophils % 68.8 Lymphocytes % 16.0 Monocytes % 12.5 H Eosinophils % 1.7 Basophils % 0.7 Nucleated Red Blood Cells % 0.0 Immature Granulocytes # 0.020 Neutrophils # 5.1 Lymphocytes # 1.2 Monocytes # 0.9 Eosinophils # 0.1 Basophils # 0.1 Nucleated Red Blood Cells # 0.0 Sodium Level 134 L Potassium Level 4.5 Chloride Level 99 Carbon Dioxide Level 23 Anion Gap 12 Blood Urea Nitrogen 26 H Creatinine 6.98 H Est Glomerular Filtrat Rate mL/min 8 L Glucose Level 90 Calcium Level 9.2 Magnesium Level 2.2 Creatine Kinase 64 Creatine Kinase Index 3.4 Thyroid Stimulating Hormone (TSH) 0.389 L Medications Medication Current Medications IV Flush (NS 3 ml) 3 ml PER PROTOCOL IV ; Start 09/03/18 at 12:00 Heparin Sodium (Porcine) (Heparin (5000 Units/1ml)) 5,000 unit Q8 SC Last administered on 09/05/18at 22:19; Admin Dose 5,000 UNIT; Start 09/03/18 at 14:00 Amlodipine Besylate (Norvasc) 10 mg DAILY PO Last administered on 09/04/18 08:10; Admin Dose 10 MG; Start 09/04/18 at 09:00 Aspirin (Halfprin) 81 mg DAILY PO Last administered on 09/06/18 09:40; Admin Dose 81 MG; Start 09/04/18 at 09:00 Atorvastatin Calcium (Lipitor) 40 mg QHS PO Last administered on 09/05/18 20:19; Admin Dose 40 MG; Start 09/03/18 at 21:00 Clopidogrel Bisulfate (plaVIX) 75 mg DAILY PO Last administered on 09/06/18 09:40; Admin Dose 75 MG; Start 09/04/18 at 09:00 Doxazosin Mesylate (Cardura) 4 mg HS PO Last administered on 09/05/18 20:19; Admin Dose 4 MG; Start 09/03/18 at 21:00 Famotidine (Pepcid) 20 mg DAILY PO Last administered on 09/06/18 09:40; Admin Dose 20 MG; Start 09/03/18 at 13:00 Hydralazine HCl (Apresoline) 100 mg BID PO Last administered on 09/05/18 20:18; Admin Dose 100 MG; Start 09/03/18 at 21:00 Metoprolol Succinate (Toprol Xl) 50 mg DAILY PO Last administered on 09/04/18 08:10; Admin Dose 50 MG; Start 09/04/18 at 09:00 Nicotine (Nicoderm 7 Mg/ 24 Hr) 1 patch DAILY TRANSDERM Last administered on 09/06/18 09:41; Admin Dose 1 PATCH; Start 09/03/18 at 13:00 Acetaminophen/ Hydrocodone Bitart ([place] (5/325)) 1 tab Q4H PRN PO MODERATE PAIN LEVEL 4-6; Start 09/03/18 at 12:30 Isosorbide Mononitrate (Imdur) 60 mg DAILY PO Last administered on 09/04/18 08:10; Admin Dose 60 MG; Start 09/04/18 at 09:00 Heparin Sodium (Porcine) (Heparin (1000 Units/ml)) 3,200 unit AFTER DIALYSIS CATHETER Last administered on 4/9/19at 10:46; Admin Dose 3,200 UNIT; Start 09/04/18 at 00:00 Heparin Sodium (Porcine) (Heparin (1000 Units/ml)) 4,000 unit AFTER DIALYSIS CATHETER ; Start 09/04/18 at 13:30 Sodium Chloride 1,000 ml @ 0 mls/hr Q0M PRN IV TO KEEP SBP ABOVE 90; Start 09/04/18 at 13:29 Albumin Human 100 ml @ 100 mls/hr WITH DIALYSIS PRN IV SBP <90 DURING DIALYSIS; Start 09/04/18 at 13:30 Sodium Chloride (NS) -To prime the dialy... DIRECTED FOR HD PRN IV HD; Start 09/04/18 at 13:30 Nitroglycerin (Nitroglycerin (Sl Tab) 0.4 Mg) 1 tab Q5M PRN SL ANGINA Last administered on 09/05/18at 05:33; Admin Dose 1 TAB; Start 09/05/18 at 05:30 Miscellaneous Information (* Miscellaneous Pharmacy Order) Hold all Metformin ... ONCE XX ; Start 09/05/18 at 14:00; Stop 09/07/18 at 13:59 Acetaminophen (Tylenol Tab) 650 mg Q4H PRN PO PAIN; Start 09/05/18 at 14:00 Oxycodone/ Acetaminophen (Percocet (5/ 325)) 1 tab Q4H PRN PO PAIN; Start 09/05/18 at 14:00 Zolpidem Tartrate (Ambien) 5 mg HS MAY REPEAT X 1 PRN PO INSOMNIA; Start 09/05/18 at 14:00 Al Hydrox/Mg Hydrox/Simethicone (Mag-Al Plus) 30 ml Q4H PRN PO GASTROINTESTINAL UPSET; Start 09/05/18 at 14:00 Ondansetron HCl (Zofran Inj) 4 mg Q4H PRN IV NAUSEA AND/OR VOMITING; Start 09/05/18 at 14:00 HERNANDEZ BUCHANAN MD Sep 06, 2018 12:24
[2018-09-06] MEDS: SEVELAMER CARBONATE 800 MG TABLET PO SCH ×2 (13:11→20:57)
--- NOTE | 2018-09-06 17:59 | RADRPT ---
Vent Rate: 106 bpm RR Interval: 0 msec IL Interval: 148 msec QRS Duration: 106 msec QT Interval: 364 msec QTC Interval: 483 msec P-R-T Sims: 75 - 71 - 0 degrees Sinus tachycardia Left ventricular hypertrophy with repolarization abnormality Abnormal ECG Electronically Signed By: Mick Zepeda
[2018-09-06] MEDS: DOXAZOSIN 2 MG TAB PO SCH (20:56)
[2018-09-06] MEDS: ATORVASTATIN 40 MG TAB PO SCH (20:57)
[2018-09-07] VITALS (19 sets, daily range): BP systolic 118–165; BP diastolic 65–91; PULSE 90–112; RESP 18
[2018-09-07] MEDS: HEPARIN 5,000 UNIT/1 ML VIAL SC SCH ×2 (05:28→14:05)
[2018-09-07] MEDS: METOPROLOL (XL) 50 MG TAB PO SCH (09:00)
[2018-09-07] MEDS: NICOTINE (7 MG/24 HR) PATCH TRANSDERM SCH ×2 (09:00→12:48)
[2018-09-07] MEDS: AMLODIPINE 10 MG TAB PO SCH (09:00)
[2018-09-07] MEDS: ISOSORBIDE MONONITRATE(SR)30 MG TAB PO SCH (09:00)
--- NOTE | 2018-09-07 09:19 | PN ---
DATE: 09/07/2018 SUBJECTIVE: The patient was stable overnight, no fevers, chills, nausea, vomiting. OBJECTIVE: VITAL SIGNS: Blood pressure is 139/79, respiration 18, pulse 107, temperature 97.9. HEENT: Head is normocephalic. NECK: Supple. HEART: Regular rate. LUNGS: Show diminished breath sounds at the base. ABDOMEN: Soft, nontender to palpation without rebound or guarding. EXTREMITIES: Negative for clubbing, cyanosis, no edema. DERMATOLOGIC: No rashes. MUSCULOSKELETAL: No joint effusions. NEUROLOGIC: No change in exam. MEDICATIONS: The patient's medications have been reviewed. LABORATORY DATA: The laboratory data was reviewed. ASSESSMENT AND PLAN: 1. End-stage renal disease. Dialysis today. Will dialyze 3 hours with 2K bath, calcium 2.5. 2. Anemia. Monitor H and H levels. Will give Epogen as needed. 3. Mineral bone disorder. Monitor calcium and phosphorus levels. Continue phos binders as needed. 4. Hypertension. Continue current blood pressure regimen. 5. Chest pain, coronary artery disease. The patient is status post PCI with drug-eluting stent. Co ntinue medical management. Follow up with cardiology. 6. Benign prostatic hypertrophy. Continue current medical management. 7. History of chronic obstructive pulmonary disease. Dictated By: REGINA TAYLOR DO NR/NTS Conf#: [id number] DID#: [id number] CC: WILMER HOLLOWAY MD; WILMER ALLISON MD; HERNANDEZ BUCHANAN MD;*EndCC*
[2018-09-07] MEDS: CLOPIDOGREL 75 MG TAB PO SCH (09:51)
[2018-09-07] MEDS: ASPIRIN (EC) 81 MG TAB PO SCH (09:51)
[2018-09-07] MEDS: SEVELAMER CARBONATE 800 MG TABLET PO SCH ×2 (09:51→12:45)
--- NOTE | 2018-09-07 15:27 | PDOCDIS ---
Discharge Instructions CONDITION [id number] Patient Condition: [id number] Stable HOME CARE INSTRUCTIONS: [id number] Diet Instructions: [id number] Low Fat /Cholesterol ACTIVITY: [id number] Activity Restrictions: [id number] Slowly Increase Activity Do not Drive FOLLOW UP/APPOINTMENTS Follow-up Plan appt primary 1wk Dr Contreras 3wks Continue Dialysis as instructed HERNANDEZ BUCHANAN MD Sep 07, 2018 15:27
[2018-09-07] MEDS ORDERED: NICO-544 TRANSDERM (15:29)
[2018-09-07] MEDS ORDERED: ISOS30TA67 PO (15:29)
[2018-09-07] MEDS ORDERED: ACET325T33 PO (15:29)
--- NOTE | 2018-09-07 17:28 | DS ---
Date/Time of Note Date/Time of Note DATE: 09/07/18 TIME: 17:25 Discharge Summary Admission/Discharge Info Admit Date/Time Sep 05, 2018 at 15:08 Discharge Date/Time Patient Condition: Stable Consults Dr Diane Johnson Procedures Chest x-ray: No acute process Stress test: see final results Cardiac angiogram:See operative report for details 2D ECHO: Conclusions: Mild concentric left ventricular hypertrophy. Moderate left ventricular systolic dysfunction. Ejection fraction is visually estimated at 35-40 %. Tissue Doppler/Mitral Doppler indices are consistent with impaired relaxation (Stage I diastolic dysfunction). Multiple segmental wall motion abnormalities. Mild mitral annular calcification. Trace mitral regurgitation. Normal appearance of the tricuspid valve. Estimated peak PA systolic pressure 23 mmHg. There is trace tricuspid regurgitation. Normal pericardium with no significant pericardial effusion. Hx of Present Illness 68-year-old gentleman admitted with chest pain. Hospital Course Hospitalist coverage/hospital course -Evaluated managed for chest pain. Seen by cardiology. Troponins trending up. Underwent stress test which was fairly unremarkable. Therefore patient required cardiac catheterization. Underwent 2 drug-eluting stents to his grafts. Patient is instructed again to quit smoking. Stable and fit for discharge. I gave him prescription for Plavix. He is presently office off the ARB post cardiac catheterization along with ESRD. If otherwise stable as an outpatient, recommend considering ARB for blood pressure management. 1. Stable angina sp 2 BART to svg grafts, stable observe 2. Chr CAD, will continue risk factor modification 3. Tobacco abuse sp counseling offered patch 4. Dyslipidemia, not at goal consider step up statin vs Repatha 5. Essential hypertension 6. ESRD/dialysis status 7. COPD? 8. BPH 9. Pulmonary hypertension vs cor pulmonale 10. Delirium, reorient, DC tethers check cxr. May transfer to [facility].. Presently resolved S: 09/06: No active cp dyspnea. Delirium. Pulling out IVs/ oxygen/ monitor. His dialysis access looks a little pulled out. 09/07: No events. On dialysis no further chest pain dyspnea. O: Vital signs stable sinus Physical exam No JVD pallor droop Regular no murmur gallop Clear no tachypnea; right chest axis clean dry and intact but he may have been pulled out a little Bs+ nt nd no RRG No edema Home Meds Active Scripts Acetaminophen* (Tylenol*) 325 Mg Tablet, 650 MG PO Q4H PRN for PAIN for 7 Days, TAB Prov:HERNANDEZ BUCHANAN MD 09/07/18 Isosorbide Mononitrate* (Isosorbide Mononitrate*) 30 Mg Tab.er.24h, 60 MG PO DAILY for 14 Days, #14 Prov:HERNANDEZ BUCHANAN MD 09/07/18 Nicotine* (Nicotine* Patch) 7 mg/day Patch, 1 PATCH TRANSDERM DAILY for 28 Days Prov:HERNANDEZ BUCHANAN MD 09/07/18 Guaifenesin-Dextromethorphan* (Robitussin* DM) 100MG/10MG/5ML Syrup, 10 ML PO Q4H PRN for cough for 30 Days Prov:KASSY CHAVIS NP 10/21/15 Amlodipine Besylate* (Amlodipine Besylate*) 10 Mg Tablet, 10 MG PO DAILY for 30 Days, TAB Prov:KASSY CHAVIS NP 10/21/15 Nicotine* (Nicoderm* Patch) 1 Patch Patch, 1 PATCH TRANSDERM DAILY for 30 Days, PATCH Prov:KARLA RICHARDSON 08/25/15 Hydralazine Hcl* (Hydralazine Hcl*) 25 Mg Tab, 100 MG PO BID for 30 Days, TAB Prov:KARLA RICHARDSON 08/25/15 Doxazosin Mesylate* (Cardura*) 2 Mg Tab, 4 MG PO HS for 30 Days, TAB Prov:KARLA RICHARDSON 08/25/15 Clopidogrel Bisulfate (Clopidogrel) 75 Mg Tab, 75 MG PO DAILY for 30 Days, TAB Prov:KARLA RICHARDSON 08/25/15 Reported Medications Nitroglycerin* (Nitrostat*) 0.4 Mg Tab.subl, 0.4 MG SL Q5MIN PRN for CHEST PAIN, BOTTLE 09/03/18 Sevelamer Carbonate (Sevelamer Carbonate) 800 Mg Tablet, 1 TAB ORAL TID 09/03/18 [place]-3 Acid Ethyl Esters (Young-3 Acid Ethyl Esters) 1 Gm Capsule, 1 CAP ORAL BID 09/03/18 Atorvastatin* (Atorvastatin*) 80 Mg Tablet, 1 TAB ORAL QHS 09/03/18 Metoprolol Succinate* (Toprol XL*) 50 Mg Tab.er.24h, 1 TAB ORAL DAILY 09/03/18 Aspirin* (Aspirin* EC) 81 Mg Tablet.dr, 1 TAB ORAL DAILY 09/03/18 Famotidine* (Famotidine*) 20 Mg Tablet, 20 MG PO BID, TAB 08/22/15 Discontinued Reported Medications Losartan Potassium* (Losartan Potassium*) 25 Mg Tablet, 1 TAB ORAL QHS 09/03/18 Atorvastatin Calcium (Atorvastatin Calcium) 10 Mg Tablet, 10 MG PO QHS, TAB 08/22/15 Discontinued Scripts Clonidine Hcl* (Clonidine Hcl*) 0.1 Mg Tab, 0.1 MG PO Q6H PRN for SBP>180 mm Hg for 30 Days, TAB Prov:CHAVISRAA V. FIELD INSTALLER 10/21/15 Atenolol* (Atenolol*) 50 Mg Tablet, 50 MG PO DAILY for 30 Days, TAB Prov:CHAVISKASSY V. FIELD INSTALLER 10/21/15 Isosorbide Mononitrate* (Isosorbide Mononitrate*) 30 Mg Tabsr, 30 MG PO DAILY for 30 Days Prov:KARLA RICHARDSON 08/25/15 Heparin Sodium,Porcine/Pf (Heparin Na 5,000 Units/0.5 Ml) 5,000 Unit/0.5 Ml Soln, 5000 UNIT SC BID for 30 Days Prov:KARLA RICHARDSON 08/25/15 Follow-up Plan appt primary 1wk Dr Contreras 3wks Continue Dialysis as instructed Primary Care Provider Care Physician No Primary Time spent on discharge: > 30 minutes Pending Labs Laboratory Tests Test 09/07/18 05:04 White Blood Count 6.8 10^3/ul (4.8-10.8) Red Blood Count 4.12 10^6/ul (4.70-6.10) Hemoglobin 11.1 g/dl (14.0-18.0) Hematocrit 33.7 % (42.0-52.0) Mean Corpuscular Volume 81.8 fl (82.0-101.0) Mean Corpuscular Hemoglobin 26.9 pg (29.0-33.0) Mean Corpuscular Hemoglobin Concent 32.9 g/dl (32.0-37.0) Red Cell Distribution Width 18.7 % (11.5-14.5) Platelet Count 275 10^3/UL (140-415) Mean Platelet Volume 10.5 fl (7.4-10.4) Immature Granulocytes % 0.300 % (0.001-0.429) Neutrophils % 57.6 % (39.0-77.0) Lymphocytes % 22.8 % (15.0-51.0) Monocytes % 15.3 % (0.0-11.0) Eosinophils % 3.1 % (0.0-7.0) Basophils % 0.9 % (0.0-2.0) Nucleated Red Blood Cells % 0.0 /100WBC (0.0-0.0) Immature Granulocytes # 0.020 10^3/ul (0.0-0.031) Neutrophils # 3.9 10^3/ul (1.6-7.5) Lymphocytes # 1.6 10^3/ul (0.8-2.9) Monocytes # 1.0 10^3/ul (0.3-0.9) Eosinophils # 0.2 10^3/ul (0.0-0.5) Basophils # 0.1 10^3/ul (0.0-0.1) Nucleated Red Blood Cells # 0.0 10^3/ul (0.0-0.0) Sodium Level 137 mmol/L (135-144) Potassium Level 4.3 mmol/L (3.5-5.1) Chloride Level 100 mmol/L (97-110) Carbon Dioxide Level 28 mmol/L (21-31) Anion Gap 9 (5-13) Blood Urea Nitrogen 18 mg/dl (7-20) Creatinine 5.20 mg/dl (0.61-1.24) Est Glomerular Filtrat Rate mL/min 11 mL/min (>60) Glucose Level 95 mg/dl (70-220) Calcium Level 9.3 mg/dl (8.4-10.2) Magnesium Level 2.1 mg/dl (1.7-2.5) Total Bilirubin 0.5 mg/dl (0.2-1.3) Direct Bilirubin 0.00 mg/dl (0.00-0.20) Indirect Bilirubin 0.5 mg/dl (0-1.1) Aspartate Amino Transf (AST/SGOT) 21 IU/L (15-46) Alanine Aminotransferase (ALT/SGPT) 9 IU/L (13-69) Alkaline Phosphatase 115 IU/L (42-121) Total Protein 7.3 g/dl (6.1-8.1) Albumin 3.5 g/dl (3.3-4.9) Globulin 3.80 g/dl (1.3-3.2) Albumin/Globulin Ratio 0.92 Vitamin B12 Level 574 pg/ml (239-931) Folate 7.5 ng/ml (2.8-20.0) Free Thyroxine 2.15 ng/dl (0.78-2.44) Total Triiodothyronine 0.92 ng/ml (0.97-1.69) Rapid Plasma Reagin NONREACTIVE (NR) HERNANDEZ BUCHANAN MD Sep 07, 2018 17:28
[2018-09-07] MEDS: HEPARIN 1000 UNITS/ML 10 ML INJ CATHETER SCH (18:10)
--- NOTE | 2018-09-08 13:06 | RADRPT ---
Vent Rate: 96 bpm RR Interval: 0 msec PA Interval: 138 msec QRS Duration: 102 msec QT Interval: 408 msec QTC Interval: 515 msec P-R-T [place]: 68 - 56 - 0 degrees Normal sinus rhythm Left ventricular hypertrophy with repolarization abnormality Prolonged QT Abnormal ECG Electronically Signed By: Alcides Jaimes
== END 2018-09-07 20:30 | disposition home or self-care (01) | DRG 246 ==
LOC: E/R 07:13 → INTOOBSV 08:32 → UNDOADMIN 08:32 → TEL 08:32 → OBSVTOIN 09-05 15:08 → 2NE 09-06 21:40
PROVIDERS: ADMIT Internal Medicine; ATTEND Internal Medicine
PROC: B211YZZ Fluoroscopy of Multiple Coronary Arteries using Other Contrast (ICD-10-PCS; 2018-09-05)
PROC: B218YZZ Fluoroscopy of Left Internal Mammary Bypass Graft using Other Contrast (ICD-10-PCS; 2018-09-05)
PROC: 027136Z Dilation of Coronary Artery, Two Arteries with Three Drug-eluting Intraluminal Devices, Percutaneous Approach (ICD-10-PCS; principal; 2018-09-05 11:30)
PROC: 4A023N7 Measurement of Cardiac Sampling and Pressure, Left Heart, Percutaneous Approach (ICD-10-PCS; 2018-09-05 11:30)
PROC: 5A1D70Z Performance of Urinary Filtration, Intermittent, Less than 6 Hours Per Day (ICD-10-PCS; 2018-09-07)
DX: I21.4 Non-ST elevation (NSTEMI) myocardial infarction (principal); N18.6 End stage renal disease; I13.2 Hypertensive heart and chronic kidney disease with heart failure and with stage 5 chronic kidney disease, or end stage renal disease; I50.30 Unspecified diastolic (congestive) heart failure; I25.810 Atherosclerosis of coronary artery bypass graft(s) without angina pectoris; I42.9 Cardiomyopathy, unspecified; I25.10 Atherosclerotic heart disease of native coronary artery without angina pectoris; Z99.2 Dependence on renal dialysis; E78.5 Hyperlipidemia, unspecified; N40.0 Benign prostatic hyperplasia without lower urinary tract symptoms; I25.2 Old myocardial infarction; R41.0 Disorientation, unspecified; I27.20 Pulmonary hypertension, unspecified; I25.82 Chronic total occlusion of coronary artery; F17.210 Nicotine dependence, cigarettes, uncomplicated; D63.1 Anemia in chronic kidney disease
CPT/HCPCS: 71045; 78452; 80048; 80053; 80061; 82550; 82553; 82607; 82746; 83036; 83735; 84100; 84439; 84443; 84480; 84484; 85025; 86592; 86704; 86709; 86803; 87340; 90935; 93005; 93017; 93306; 93459; 96374; G0378; A9500; A9505; C1725; C1874; C1887; C1894; C9604; J0461; J0583; J1644; J2250; J2270; J2405; J2785; J3010; J7030; Q9967

== ENCOUNTER 2018-12-27 06:17 | Inpatient (IN) | payer MEDICARE, BC ==
[2018-12-27] VITALS (18 sets, daily range): BP systolic 103–189; BP diastolic 66–96; PULSE 79–99; RESP 17–21; Ht 167.6 cm; Wt 70.1 kg
[~2018-12-27] VITALS: Ht 167.6 cm; Wt 70.1 kg
[~2018-12-27 06:17] MED LIST changes: +ACET325T33 PO; +ASPI-817 ORAL; +ASPI-831 PO; -ATEN50TA PO; +ATOR-2 ORAL; -ATOR10TA65 PO; +AZIT250T13 PO; +CLOP75TA28 PO; +DOCU-144 PO; -HEP5KI SC; +LOSA25TA12 PO; +METO-319 ORAL; +NICO-544 TRANSDERM; +NITR0.4T39 SL; +OMEG-101 ORAL; +SEVE800T23 ORAL
[2018-12-27] MEDS ORDERED: NITROGLYCERIN 2% 1 GM OINT PKT TD STA (06:20)
[2018-12-27] MEDS ORDERED: NITROGLYCERIN (SL) 0.4 MG TAB SL PRN ×2 (06:30→13:30)
[2018-12-27] MEDS ORDERED: FUROSEMIDE 40 MG INJ IV ONE (06:30)
[2018-12-27] MEDS ORDERED: ACETAMINOPHEN 325 MG TAB PO PRN ×2 (07:30→13:30)
[2018-12-27] MEDS ORDERED: ONDANSETRON 4 MG INJ IV PRN ×2 (07:30→13:30)
--- NOTE | 2018-12-27 09:08 | ERD ---
ER Documentation Chief Complaint Chief Complaint bib ra from jail for sob, +cpap, +multiple nitro sprays, +162 asa HPI Patient is a 68-year-old male with coronary disease and hypertension who presents with chest pain and shortness of breath. The patient was brought in by ambulance. He had rhonchi and rales per paramedics. He had no dialysis for the past few months. He came from a convalescent home. He was placed on CPAP by paramedics and given aspirin and nitroglycerin. His blood sugar was 113. His primary doctor is Dr. Arias. ROS All systems reviewed and are negative except as per history of present illness. Medications Home Meds Reported Medications Losartan Potassium* (Losartan Potassium*) 25 Mg Tablet, 25 MG PO QHS, TAB 12/27/18 Clonidine Hcl* (Clonidine Hcl*) 0.1 Mg Tab, 0.1 MG PO BID PRN for ELEVATED BLOOD PRESSURE, TAB 12/27/18 Sevelamer Carbonate (Sevelamer Carbonate) 800 Mg Tablet, 1 TAB ORAL TID 09/03/18 [place]-3 Acid Ethyl Esters ([place]-3 Acid Ethyl Esters) 1 Gm Capsule, 1 CAP ORAL BID 09/03/18 Atorvastatin* (Atorvastatin*) 80 Mg Tablet, 1 TAB ORAL QHS 09/03/18 Metoprolol Succinate* (Toprol XL*) 50 Mg Tab.er.24h, 1 TAB ORAL DAILY 09/03/18 Discontinued Reported Medications Nitroglycerin* (Nitrostat*) 0.4 Mg Tab.subl, 0.4 MG SL Q5MIN PRN for CHEST PAIN, BOTTLE 09/03/18 Aspirin* (Aspirin* EC) 81 Mg Tablet.dr, 1 TAB ORAL DAILY 09/03/18 Famotidine* (Famotidine*) 20 Mg Tablet, 20 MG PO BID, TAB 08/22/15 Discontinued Scripts Acetaminophen* (Tylenol*) 325 Mg Tablet, 650 MG PO Q4H PRN for PAIN for 7 Days, TAB Prov:HERNANDEZ BUCHANAN MD 09/07/18 Isosorbide Mononitrate* (Isosorbide Mononitrate*) 30 Mg Tab.er.24h, 60 MG PO MADAI LY for 14 Days, #14 Prov:HERNANDEZ BUCHANAN MD 09/07/18 Nicotine* (Nicotine* Patch) 7 mg/day Patch, 1 PATCH TRANSDERM DAILY for 28 Days Prov:HERNANDEZ BUCHANAN MD 09/07/18 Guaifenesin-Dextromethorphan* (Robitussin* DM) 100MG/10MG/5ML Syrup, 10 ML PO Q4 H PRN for cough for 30 Days Prov:KASSY CHAVIS NP 10/21/15 Amlodipine Besylate* (Amlodipine Besylate*) 10 Mg Tablet, 10 MG PO DAILY for 30 Days, TAB Prov:KASSY CHAVIS V. MANAGER RN CASE 10/21/15 Nicotine* (Nicoderm* Patch) 1 Patch Patch, 1 PATCH TRANSDERM DAILY for 30 Days, PATCH Prov:DEBRASAMANATITO M. 08/25/15 Hydralazine Hcl* (Hydralazine Hcl*) 25 Mg Tab, 100 MG PO BID for 30 Days, TAB Prov:DEBRA,SAMANATITO M. 08/25/15 Doxazosin Mesylate* (Cardura*) 2 Mg Tab, 4 MG PO HS for 30 Days, TAB Prov:DEBRA,SAMANATITO M. 08/25/15 Clopidogrel Bisulfate (Clopidogrel) 75 Mg Tab, 75 MG PO DAILY for 30 Days, TAB Prov:DEBRA,BOLATITO M. 08/25/15 Allergies Allergies: Coded Allergies: No Known Allergies (Verified Allergy, Unknown, 12/27/18) PMhx/Soc History of Surgery: Yes (CABG, KIET AVF Creation) Anesthesia Reaction: No Hx Neurological Disorder: No Hx Respiratory Disorders: No Hx Cardiac Disorders: Yes (CHF, HTN , DISLIPIDEMIA) Hx Psychiatric Problems: No Hx Miscellaneous Medical Probl: No Hx Alcohol Use: Yes Hx Substance Use: No Hx Tobacco Use: Yes Smoking Status: Never smoker FmHx Family History: No diabetes Physical Exam Vitals Vital Signs Date Temp Pulse Resp B/P (MAP) Pulse Ox O2 O2 Flow FiO2 Time Delivery Rate 12/27/18 83 24 182/76 100 Nasal 08:14 (111) Cannula 12/27/18 Nasal 4 06:25 Cannula 12/27/18 97.8 82 24 209/107 100 06:19 (141) 12/27/18 97.8 82 24 209/107 100 Room Air 06:19 (141) Physical Exam Const: Moderate distress Head: Atraumatic Eyes: Normal Conjunctiva ENT: Normal External Ears, Nose and Mouth. Neck: Full range of motion. No meningismus. Resp: Decreased breath sounds bilaterally Cardio: Regular rate and rhythm, no murmurs Abd: Soft, non tender, non distended. Normal bowel sounds Skin: No petechiae or rashes Back: No midline or flank tenderness Ext: No cyanosis, or edema Neur: Awake Result Diagram: 12/27/18 0620 12/27/18 0620 Results 24 hrs Laboratory Tests Test 12/27/18 06:20 White Blood Count 11.1 10^3/ul Red Blood Count 3.37 10^6/ul Hemoglobin 8.7 g/dl Hematocrit 26.5 % Mean Corpuscular Volume 78.6 fl Mean Corpuscular Hemoglobin 25.8 pg Mean Corpuscular Hemoglobin Concent 32.8 g/dl Red Cell Distribution Width 16.9 % Platelet Count 249 10^3/UL Mean Platelet Volume 12.2 fl Immature Granulocytes % 0.400 % Neutrophils % 71.2 % Lymphocytes % 13.3 % Monocytes % 7.2 % Eosinophils % 7.1 % Basophils % 0.8 % Nucleated Red Blood Cells % 0.0 /100WBC Immature Granulocytes # 0.040 10^3/ul Neutrophils # 7.9 10^3/ul Lymphocytes # 1.5 10^3/ul Monocytes # 0.8 10^3/ul Eosinophils # 0.8 10^3/ul Basophils # 0.1 10^3/ul Nucleated Red Blood Cells # 0.0 10^3/ul Sodium Level 138 mmol/L Potassium Level 4.5 mmol/L Chloride Level 112 mmol/L Carbon Dioxide Level 10 mmol/L Anion Gap 16 Blood Urea Nitrogen 79 mg/dl Creatinine 9.55 mg/dl Est Glomerular Filtrat Rate mL/min 6 mL/min Glucose Level 89 mg/dl Calcium Level 9.2 mg/dl Troponin I 0.072 ng/ml Current Medications Medications Dose Sig/Marcell Start Time Status Last (Trade) Ordered Route PRN Stop Time Admin Dose Reason Admin 1 inch ONCE STAT 12/27/18 DC 12/27/18 Nitroglycerin TD 06:20 06:35 12/27/18 06:21 (Nitroglyceri n 2% Oint) 1 tab Q5M UP TO 3 12/27/18 Nitroglycerin DOSES PRN 06:30 SL .CHEST (Nitroglyceri PAIN n (Sl Tab) 0.4 Mg) Furosemide 40 mg ONCE ONCE 12/27/18 DC 12/27/18 (Lasix) IV 06:30 06:36 12/27/18 06:31 Ondansetron 4 mg ER BRIDGE 12/27/18 HCl (Zofran PRN IV 07:30 Inj) NAUSEA/VOMITI 12/28/18 07:29 NG 650 mg ER BRIDGE 12/27/18 Acetaminophen PRN PO 07:30 (Tylenol .MILD PAIN 12/28/18 07:29 Tab) 1-3 OR TEMP Procedures/MDM Chest x-ray shows congestive heart failure per radiology. EKG read by me: Rate/Rhythm: Regular rate and rhythm at a normal rate Intervals: Normal Impression: No evidence of ischemia or arrhythmia Smoking Cessation Therapy: Pt. was lectured for greater than 3 minutes on the health risks of continued smoking and the benefits of cessation. Patient is a 68-year-old male who presents with acute congestive heart failure exacerbation. He had respiratory failure requiring CPAP therapy by paramedics but we were able to downgrade to a nasal cannula oxygen. The patient has uremia with metabolic acidosis. Potassium is normal despite missing dialysis for the past few months. The patient will be admitted to the care of the panel team to an inpatient telemetry bed. At this point I doubt sepsis or pneumonia. Critical Care: Time: 35 minutes excluding all billable procedures. Treatments/Evaluations: Close monitoring and treatment of unstable vital signs, cardiorespiratory, and neurologic status, while maintaining tight balance of fluid, respiratory, and cardiac interventions. Departure Diagnosis: Primary Impression: Acidosis Additional Impressions: Shortness of breath Acute kidney failure Acute renal failure type: unspecified Qualified Codes: N17.9 - Acute kidney failure, unspecified Uremia CHF exacerbation Heart failure type: unspecified Qualified Codes: I50.9 - Heart failure, unspecified Condition: Serious HYACINTH RHOADES MD Dec 27, 2018 09:08
--- NOTE | 2018-12-27 13:08 | HP ---
Date/Time of Note Date/Time of Note DATE: 12/27/18 TIME: 13:03 Assessment/Plan VTE Prophylaxis Pharmacological prophylaxis: heparin Lines/Catheters IV Catheter Type (from Nrs): Peripheral IV Urinary Cath still in place: Yes Reason Cath still needed: other (indicate) Assessment/Plan Hospital Course 64-year-old male who presented with left-sided chest pain and pressure with shortness of breath after being off dialysis for the last 2 months admitted and managed as follows: 1. Chest pain rule out an acute coronary syndrome 2. Fluid overload/CHF exacerbation 3. Chronic cardiomyopathy with last known ejection fraction at stress August 2018 of 30% 4. End-stage renal disease on hemodialysis, off hemodialysis for the last 2 months per her choice and the hope was that he would no longer require it 5. Metabolic acidosis likely secondary to #4 6. Hypochromic anemia 7. Cannot rule out underlying pneumonia bilaterally 8. Clinical evidence of acute bronchitis 9. CAD s/p[ CABG and recent PCI Plan: -Admit to telemetry -Complete ACS rule out, begin diuresis, nephrology consults for inpatient dialysis to help with fluid removal -Send blood and sputum cultures, begin empiric antibiotics prophylactically and discontinue if cultures come back negative -Plan for follow-up chest x-ray tomorrow after fluid removal -Supportive care and supplemental oxygen as needed -Consider bicarbonate therapy? Defer to nephro -Close monitoring and electrolyte management -Further interventions per clinical course Result Diagram: 12/27/18 0620 12/27/18 0620 Results 24hrs Laboratory Tests Test 12/27/18 06:20 White Blood Count 11.1 #H Red Blood Count 3.37 L Hemoglobin 8.7 #L Hematocrit 26.5 #L Mean Corpuscular Volume 78.6 L Mean Corpuscular Hemoglobin 25.8 L Mean Corpuscular Hemoglobin Concent 32.8 Red Cell Distribution Width 16.9 H Platelet Count 249 Mean Platelet Volume 12.2 H Immature Granulocytes % 0.400 Neutrophils % 71.2 Lymphocytes % 13.3 L Monocytes % 7.2 Eosinophils % 7.1 H Basophils % 0.8 Nucleated Red Blood Cells % 0.0 Immature Granulocytes # 0.040 H Neutrophils # 7.9 H Lymphocytes # 1.5 Monocytes # 0.8 Eosinophils # 0.8 H Basophils # 0.1 Nucleated Red Blood Cells # 0.0 Sodium Level 138 Potassium Level 4.5 Chloride Level 112 H Carbon Dioxide Level 10 L Anion Gap 16 H Blood Urea Nitrogen 79 H Creatinine 9.55 H Est Glomerular Filtrat Rate mL/min 6 L Glucose Level 89 Calcium Level 9.2 Troponin I 0.072 HPI/ROS Admit Date/Time Admit Date/Time Dec 27, 2018 at 07:22 Hx of Present Illness 68-year-old male who presents to us with left-sided chest pain and pressure associated with shortness of breath and required short course of CPAP. The patient was found to be fluid overload, he is a known dialysis patient but has been off dialysis for the past 2months per his choice. There is been no passing out episodes, no abdominal pain or dysuria or hematuria. ROS 12 point review if systems was done and pertinent findings are as noted. PMH/Family/Social Past Medical History CAD s/p PCI and CABG ESRD HTN Dyslipidemia Medications Current Medications Nitroglycerin (Nitroglycerin (Sl Tab) 0.4 Mg) 1 tab Q5M UP TO 3 DOSES PRN SL .CHEST PAIN; Start 12/27/18 at 06:30 Ondansetron HCl (Zofran Inj) 4 mg ER BRIDGE PRN IV NAUSEA/VOMITING; Start 12/27/18 at 07:30; Stop 12/28/18 at 07:29 Acetaminophen (Tylenol Tab) 650 mg ER BRIDGE PRN PO .MILD PAIN 1-3 OR TEMP; Start 12/27/18 at 07:30; Stop 12/28/18 at 07:29 Coded Allergies: No Known Allergies (Verified Allergy, Unknown, 12/27/18) Past Surgical History Past Surgical Hx: coronary bypass surgery, other (hip sx, avf creatiton) Family History Significant Family History: no pertinent family hx Social History Alcohol Use: occasionally Smoking Status: Current every day smoker Drug Use: none Exam/Review of Systems Vital Signs Vitals Vital Signs Date Temp Pulse Resp B/P (MAP) Pulse Ox O2 O2 Flow FiO2 Time Delivery Rate 12/27/18 Nasal 2.0 12:11 Cannula 12/27/18 97.8 98 12:07 12/27/18 88 189/91 12:05 (123) 12/27/18 22 10:56 Exam Exam General: A&O x3, answering questions appropriately HEENT: NC/ AT. PERRL. EOM intact Neck: supple CVS: S1, S2, RRR. no murmurs. no pain on chest wall palpation Lungs: upper airway with coarse crackles suggestive of secretions, but lower airway is clear but diminished Abd: soft, nontender, +BS Ext: moving all extremities skin: no rashes Additional Comments PROCEDURE: XR Chest. CLINICAL INDICATION: Chest pain TECHNIQUE: AP portable semi upright chest was obtained COMPARISON: Chest 10/20/2015 FINDINGS: Right central venous catheter in place with the distal portion extending to the distal superior vena cava. The heart is mildly enlarged. Atherosclerosis of the aorta. Bilateral lower lung patchy opacities may all be due to atelectasis and scarring. Edema/infection cannot be excluded. Pulmonary vessels appear prominent and there is possible Robert B lines involving the mid to lower right hemith orax and rule out interstitial pulmonary edema. Congestive heart failure cannot be excluded. Possible tiny pleural effusions. IMPRESSION: 1. Cardiomegaly and suggestion of Robert B lines at the lateral mid to lower right lung and rule out interstitial pulmonary edema and possible congestive hea rt failure. 2. Bilateral basilar patchy opacities may all be due to atelectasis and scarring however edema/infection should be considered. 3. Possible tiny pleural effusions. RPTAT:AAJJ Physician Sunita Date Time Electronically viewed and signed by Physician Sunita on 12/27/2018 06:50 BM/ CC: HYACINTH RHOADES MD [id number] EKG read by me: Rate/Rhythm: Regular rate and rhythm at a normal rate Intervals: Normal Impression: No evidence of ischemia or arrhythmia KARLA RICHARDSON Dec 27, 2018 13:08
[2018-12-27] MEDS ORDERED: LORAZEPAM 0.5 MG TAB PO PRN (13:30)
[2018-12-27] MEDS ORDERED: ZOLPIDEM 5 MG TAB PO PRN (13:30)
[2018-12-27] MEDS: FAMOTIDINE 20 MG TAB PO SCH (13:32)
[2018-12-27] MEDS: DOCUSATE SODIUM 100 MG CAP PO SCH ×2 (13:32→23:04)
[2018-12-27] MEDS: METOPROLOL (XL) 50 MG TAB PO SCH (17:00)
[2018-12-27] MEDS ORDERED: hydrALAzine 20 MG INJ IV PRN (17:00)
[2018-12-27] MEDS: FUROSEMIDE 40 MG INJ IV SCH (17:06)
[2018-12-27] MEDS: HYDROCODONE/APAP (5/325) TAB PO PRN ×2 (17:52→22:59)
[2018-12-27] MEDS: HEPARIN 1000 UNITS/ML 10 ML INJ CATHETER SCH (19:37)
--- NOTE | 2018-12-27 21:22 | CONS ---
DATE OF ADMISSION: 12/27/2018 DATE OF CONSULTATION: 12/27/2018 TYPE OF CONSULTATION: Nephrology. REASON FOR CONSULTATION: End-stage renal disease. PHYSICIAN REQUESTING CONSULTATION: Dr. Bryson. HISTORY OF PRESENT ILLNESS: This is a 68-year-old male with a past medical history of end-stage tiff l disease on dialysis Wednesday, Wednesday, Wednesday, access is PermCath; a history of CHF, history of ane giuseppe, who presents to [facility] with chest pain and shortness of breath. The patie nt stated he developed sudden chest pain. As a result, he was brought in by paramedics to the emerge ncy room. Upon arrival, the patient. He was given aspirin and nitroglycerin. The patient in the em ergency room had a chest x-ray which showed findings of vascular congestion, volume overload. The pa fabricio was started on antibiotics in the emergency room for the possibility of pneumonia and admitted to telemetry for further evaluation. In terms of the patient's renal history, the patient is on dialysis Wednesday, Wednesday, Wednesday. Last hemodialysis was yesterday. The patient denies any hemoptysis, hematemesis or hematochezia. PAST MEDICAL HISTORY: As stated above, history of end-stage renal disease, history of anemia, histor y of mineral bone disorder, history of CHF, history of hypertension, history of coronary artery disea se. PAST SURGICAL HISTORY: Status post CABG, status post left upper extremity AV fistula, status post Pe rmCath placement. FAMILY HISTORY: No family history of kidney disease. SOCIAL HISTORY: Does not drink or smoke. MEDICATIONS: The patient's medications have been reviewed. ALLERGIES: Have been reviewed. REVIEW OF SYSTEMS: A 14-point review of systems was conducted. Pertinent positives stated in the HP I, otherwise negative. PHYSICAL EXAMINATION: VITAL SIGNS: Blood pressure is 148/76, respirations 16, pulse 72, temperature 98.6. HEENT: Head is normocephalic. NECK: Supple. HEART: Regular rate. LUNGS: Show diminished breath sounds at the base. ABDOMEN: Soft, nontender to palpation. No rebound or guarding. EXTREMITIES: Negative for clubbing, cyanosis. Trace edema. DERMATOLOGIC: No rashes. MUSCULOSKELETAL: No joint effusion. NEUROLOGIC: No focal deficits. LABORATORY DATA: Has been reviewed. IMAGING STUDIES: Have been reviewed. ASSESSMENT AND PLAN: This is a 68-year-old male who presents with: 1. End-stage renal disease. The patient is on Wednesday, Wednesday, Wednesday, access PermCath, arteriove nous fissure. Plan is for hemodialysis today urgently. Will dialyze for 3 hours 2K bath, calcium 2. 5, ultrafiltrate as tolerated. Anticipate hemodialysis again tomorrow for solute clearance and volum e removal. 2. Anemia. Monitor hemoglobin and hematocrit levels. We will give Epogen with hemodialysis. 3. Mineral bone disorder. Monitor calcium and phosphorus levels. Will give phosphate binders as ne eded. 4. Hypertension. Etiology in part due to increased intravascular volume. Continue ultrafiltration dialysis. Continue current blood pressure regimen. 5. Volume overload secondary to end-stage renal disease. Possible congestive heart failure. Plan i s to continue ultrafiltration with dialysis. Check a two-dimensional echocardiogram. 6. Chest pain, rule out acute coronary syndrome. Check serial troponins. 7. History of coronary artery disease and coronary artery bypass graft. Continue medical management . 8. Metabolic acidosis. Continue dialysis, high bicarbonate bath. 9. Questionable pneumonia. The patient may be placed on antibiotic therapy per primary team. Thank you, Dr. Bryson, for this interesting consult. It will be a pleasure to follow the patient with you throughout the hospital course. Dictated By: REGINA TAYLOR DO NR/NTS Conf#: [id number] DID#: [id number] CC: NIKI BRYSON MD;*EndCC*
[2018-12-27] MEDS: FISH OIL 1,000 MG CAP PO SCH (21:25)
[2018-12-27] MEDS: LOSARTAN 25 MG TAB PO SCH (21:25)
[2018-12-27] MEDS: SEVELAMER CARBONATE 800 MG TABLET PO SCH (21:25)
[2018-12-27] MEDS: ATORVASTATIN 20 MG TAB PO SCH (21:25)
[2018-12-27] MEDS: HEPARIN 5,000 UNIT/1 ML VIAL SC SCH (21:42)
[2018-12-28] VITALS (20 sets, daily range): BP systolic 100–149; BP diastolic 55–86; PULSE 80–102; RESP 16–22
[2018-12-28] MEDS: FUROSEMIDE 40 MG INJ IV SCH ×3 (05:52→17:42)
[2018-12-28] MEDS: POTASSIUM CHLORIDE (SR) 20 MEQ TAB PO SCH ×2 (07:43→11:21)
[2018-12-28] MEDS: FAMOTIDINE 20 MG TAB PO SCH (08:34)
[2018-12-28] MEDS: DOCUSATE SODIUM 100 MG CAP PO SCH ×2 (08:34→21:23)
[2018-12-28] MEDS: FISH OIL 1,000 MG CAP PO SCH ×2 (08:34→21:23)
[2018-12-28] MEDS: SEVELAMER CARBONATE 800 MG TABLET PO SCH ×3 (08:34→21:23)
[2018-12-28] MEDS: HYDROCODONE/APAP (5/325) TAB PO PRN (08:35)
[2018-12-28] MEDS: METOPROLOL (XL) 50 MG TAB PO SCH (08:35)
[2018-12-28] MEDS: ASPIRIN 81 MG TAB PO SCH (08:35)
[2018-12-28] MEDS: HEPARIN 5,000 UNIT/1 ML VIAL SC SCH ×2 (08:36→21:34)
--- NOTE | 2018-12-28 12:06 | PN ---
DATE: 12/28/2018 SUBJECTIVE: The patient had hemodialysis yesterday, tolerated well. Patient is refusing dialysis to day. No other events noted. OBJECTIVE: VITAL SIGNS: Blood pressure is 115/66, respiration 22, pulse 80, temperature 98.1. HEENT: Head is normocephalic. NECK: Supple. HEART: Regular rate. LUNGS: Show diminished breath sounds at the base. ABDOMEN: Soft, nontender to palpation without rebound or guarding. EXTREMITIES: Negative for clubbing, cyanosis, no edema. DERMATOLOGIC: No rashes. MUSCULOSKELETAL: No joint effusion. NEUROLOGIC: No change in exam. MEDICATIONS: Have been reviewed. LABORATORY DATA: Have been reviewed. IMAGING STUDIES: Have been reviewed. ASSESSMENT AND PLAN: 1. End-stage renal disease. The patient had hemodialysis yesterday, tolerated well. The patient is refusing dialysis today. Will plan for dialysis again tomorrow. 2. Anemia. Continue to monitor hemoglobin and hematocrit levels. Continue Epogen. 3. Mineral bone disorder, monitor calcium and phosphorus levels. 4. Hypertension. Continue current blood pressure regimen. Continue ultrafiltration dialysis. 5. Volume overload, secondary to end-stage renal disease, improved. Continue ultrafiltration dialys is. 6. Chest pain. The patient's troponin has been negative. Continue to monitor. 7. History of coronary artery disease, history of coronary artery bypass graft. Continue medical ma nagement. 8. Metabolic acidosis. Continue dialysis on a bicarbonate bath. 9. Question pneumonia. Continue to monitor. 10. Antibiotics per primary team. Dictated By: REGINA MCGRATH/NTS Conf#: [id number] DID#: [id number] CC: NIKI BRYSON MD;*EndCC*
--- NOTE | 2018-12-28 13:47 | CONS ---
DATE OF ADMISSION: 12/27/2018 DATE OF CONSULTATION: 12/28/2018 TYPE OF CONSULTATION: Pulmonary. REASON FOR CONSULTATION: Shortness of breath. Thank you, Dr. Carlos, for this consultation. HISTORY OF PRESENT ILLNESS: This is a 64-year-old gentleman who presented with orthopnea, PND, incre asing cough and congestion, found to have significant pulmonary edema with metabolic acidosis on admi ssion. The patient had been noncompliant with hemodialysis. Chest x-ray demonstrated significant p ulmonary edema and volume overload. This morning, he appears more comfortable with decreased chest p ain. PAST MEDICAL HISTORY: 1. End-stage renal failure on hemodialysis. 2. Hypertension. 3. Hyperlipidemia. 4. Coronary artery disease status post coronary artery bypass graft and PCI. MEDICATIONS: Per chart. ALLERGIES: NONE. SOCIAL HISTORY: He is a current smoker, occasional alcohol, no history of drug use. FAMILY HISTORY: Noncontributory. SYSTEMS REVIEW: A 12-point review of systems was negative other than that mentioned above. PHYSICAL EXAMINATION: GENERAL: Well-nourished, well-developed gentleman, comfortable at rest, no acute distress. VITAL SIGNS: Currently afebrile, pulse is 80, blood pressure 107/55, O2 saturation 96% on 2 liters. NECK: Supple. No JVD or lymphadenopathy. CARDIAC: S1, S2, no added sounds or murmurs. CHEST: Diminished air entry bilaterally. ABDOMEN: Soft, nontender. No guarding or rebound. EXTREMITIES: No cyanosis, clubbing, 1+ edema. NEUROLOGIC: Generalized weakness. LABORATORY DATA: White count 8.2, hemoglobin 9.4, platelets 298. Chemistry: BUN 37, creatinine 5.0 6, bicarb initially 10, now 23. DIAGNOSTIC DATA: Chest x-ray on admission demonstrated pulmonary edema. IMPRESSION AND PLAN: 1. Hypoxemic respiratory failure secondary to volume overload from noncompliance with hemodialysis. 2. End-stage renal failure on hemodialysis. 3. Status post significant metabolic acidosis. 4. History of coronary artery disease. The patient will require: 1. Continued hemodialysis. 2. Decrease O2 as tolerated. 3. Education on compliance. 4. Outpatient followup with me with repeat chest x-ray and pulmonary function testing. Dictated By: NOÉ SANTANA/ZACHARY Conf#: [id number] [facility]#: [id number] CC: NIKI CARLOS MD;*[facility]*
[2018-12-28] MEDS ORDERED: CLOPIDOGREL 75 MG TAB PO ONE (14:00)
[2018-12-28] MEDS: EPOETIN ALFA-EPBX (ESRD) 10,000 UNIT/ML VIAL SC SCH (17:20)
--- NOTE | 2018-12-28 18:56 | CONS ---
DATE OF ADMISSION: 12/27/2018 DATE OF CONSULTATION: 12/28/2018 REASON FOR CONSULTATION: Congestive heart failure exacerbation. REQUESTING PHYSICIAN: Dr. Richardson from the hospitalist service. HISTORY OF PRESENT ILLNESS: Mr. Mendez is a 68-year-old male with history of hypertension, dyslipidemia, end-stage renal disease on hemodialysis, recent non- ST elevation myocardial infarction, status post PTCA and stent placement ,coronary artery disease, status post coronary artery bypass graft surgery, who underwent recent cardiac catheterization August 2018, at that time revealing multivessel [place] coronary artery disease on her includes the patient's LAD and distal occlusion of a small PDA and occluded PDA coronary artery disease and a widely patent stent on the patient's right coronary artery and high grade stenosis involving the patient's vein graft to diagonal and a saphenous graft to obtuse marginal, both status post successful [employer] and stent placement to the SVG to diagonal and 1 to the SVG to obtuse marginal drug-eluting stents, who was discharged to outpatient followup and now represents with chest pain and shortness of breath. Upon arrival, temperature 97.8, blood pressure markedly elevated at 209 17, pulse 83 with, satting 100%. The patient's labs were notable for a white count 11.1, a hemoglobin of 8.7, platelet count 249, a sodium 138, potassium 4.5, creatinine 9.55, BUN 79. Troponin negative. The patient underwent a chest x- ray revealing cardiomegaly and a suggestion of Robert B lines of the lateral mid to lower lung zone and rule out interstitial pulmonary edema, possible congestive heart failure, bilateral basilar patchy opacities. The patient's electrocardiogram revealed normal sinus rhythm, rate of 70, normal axis, left ventricular pressure voltage criteria. Patient was admitted to the floor and since admit to the floor, has had negative troponins x3. The patient has been consulted by the nephrology services and underwent hemodialysis yesterday and will undergo hemodialysis tomorrow per Nephrology. PAST MEDICAL HISTORY: As above in HPI. MEDICATIONS CURRENTLY IN HOSPITAL: 1. Aspirin 81 mg daily. 2. Heparin 5000 q.12 hours. 3. Lipitor 20 mg at bedtime. 4. Cozaar 25 at bedtime. 5. Renvela. 6. Fish oil. 7. Lasix 40 mg IV b.i.d. 8. Toprol-XL 50 mg daily. 9. I do not see the patient's Plavix or Brilinta. MEDICATIONS PRIOR TO ADMIT: 1. Atorvastatin. 2. Clonidine. 3. Losartan 20 mg each day at bedtime. 4. Toprol 50 mg daily. 5. Fish oil. 6. Renvela ALLERGIES: NO KNOWN DRUG ALLERGIES. SOCIAL HISTORY: Positive ongoing tobacco use, occasional ETOH. No illicit drug use. FAMILY HISTORY: No history of sudden cardiac or early CAD. REVIEW OF SYSTEMS: As above in HPI. CONSTITUTIONAL: No fevers, chills. PULMONARY: No current shortness of breath. CARDIOVASCULAR: No current chest pain, shortness of breath. GASTROINTESTINAL: No vomiting. GENITOURINARY: No hematuria ,but end-stage renal disease. PSYCHIATRIC: No documented psych history. NEUROLOGIC: No documented history of CVA. ENDOCRINE: No documented history of diabetes mellitus. PHYSICAL EXAMINATION: VITAL SIGNS: Temperature of 98.5, blood pressure 107/55, pulse 80, respiratory rate 20, satting 97%. GENERAL: The patient is alert, awake, no acute distress. NECK: JVP approximately 9 cm. CHEST: Decreased breath sounds at bases bilaterally. HEART: Regular rate and rhythm. Normal S1, S2, I/ systolic murmur. Nondisplaced PMI. ABDOMEN: Positive bowel sounds, soft. EXTREMITIES: Trace edema, 1+ pulses bilateral posterior tibial. LABORATORY DATA: Most recently from today for 138, potassium 2.9, creatinine 5.0, BUN 37. White blood cell count 8.2, hemoglobin 9.4, platelet count of 298. IMAGING STUDIES: Chest x-ray from the revealing cardiomegaly, possible infiltrate lower right lung and rule out pulmonary edema, possible congestive heart failure. IMPRESSION: 1. Congestive heart failure exacerbation, systolic, acute on chronic. 2. Cardiomyopathy with decreased left ventricular ejection fraction, last known to be approximately 35% by echo 08/2018. 3. History of percutaneous transluminal coronary angioplasty and stent placement to saphenous vein graft supplying a diagonal. Saphenous vein graft supplying obtuse marginal 08/2012. 4. Hypertension, initially with hypertension urgency/emergency on admission. 5. Dyslipidemia. 6. End-stage renal disease on hemodialysis. 7. Shortness of breath secondary to #1. RECOMMENDATIONS: 1. At this time, we would maintain the patient on telemetry monitoring to follow rhythm and rate control closely. 2. We would continue the patient's aspirin at this time and patient to be on Plavix. Unclear if the patient has been taking at home or not, it is not on his home medication list and not here. The patient's take at this time, the stent will resume the patient on Plavix at this time. Would continue the patient's current losartan and Toprol. Follow blood pressure closely. 3. Aggressive hemodialysis for volume removal 4. Continue the patient's statin therapy and adjust it according to a fasting lipid panel check. Thank you for allowing me to take part in the care of this patient. I will continue to follow very closely with you with further recommendations will be made as the patient progresses through her inpatient hospital clinical course. Dictated By: WILMER VERGARA/ZACHARY Conf#: [id number] DID#: [id number] CC: NIKI BRYSON MD; WILMER HOLLOWAY MD; KARLA RICHARDSON MD;*EndCC* MTDD
--- NOTE | 2018-12-28 19:43 | PN ---
Date/Time of Note Date/Time of Note DATE: 12/28/18 TIME: 19:42 Assessment/Plan VTE Prophylaxis Risk score (from Nsg)>0 risk: 8 SCD applied (from Nsg): Yes Pharmacological prophylaxis: heparin Lines/Catheters IV Catheter Type (from Nrsg): Peripheral IV Urinary Cath still in place: Yes Reason Cath still needed: other (indicate) Assessment/Plan Hospital Course 64-year-old male who presented with left-sided chest pain and pressure with shortness of breath after being off dialysis for the last 2 months admitted and managed as follows: 1. Chest pain : resolved. ACS ruled out 2. Fluid overload/CHF exacerbation 3. Chronic cardiomyopathy with last known ejection fraction and stress test August 2018 and 30% 4. End-stage renal disease on hemodialysis, off hemodialysis for the last 2 months per her choice and the hope was that he would no longer required 5. Metabolic acidosis likely secondary to #4: improved 6. Hypochromic anemia 7. Cannot rule out underlying pneumonia bilaterally 8. Clinical evidence of acute bronchitis 9. CAD s/p[ CABG and recent PCI Plan: -continue HD for fluid removal -wean o2 -dc planning once on room air -Close monitoring and electrolyte management -Further interventions per clinical course Result Diagram: 12/28/18 0545 12/28/18 0545 Results 24hrs Laboratory Tests Test 12/28/18 05:45 White Blood Count 8.2 # Red Blood Count 3.63 L Hemoglobin 9.4 L Hematocrit 27.7 L Mean Corpuscular Volume 76.3 L Mean Corpuscular Hemoglobin 25.9 L Mean Corpuscular Hemoglobin Concent 33.9 Red Cell Distribution Width 16.0 H Platelet Count 298 Mean Platelet Volume 11.3 H Immature Granulocytes % 0.400 Neutrophils % 61.1 Lymphocytes % 18.0 Monocytes % 10.8 Eosinophils % 8.4 H Basophils % 1.3 Nucleated Red Blood Cells % 0.0 Immature Granulocytes # 0.030 Neutrophils # 5.0 Lymphocytes # 1.5 Monocytes # 0.9 Eosinophils # 0.7 H Basophils # 0.1 Nucleated Red Blood Cells # 0.0 Sodium Level 138 Potassium Level 2.9 *L Chloride Level 100 # Carbon Dioxide Level 23 # Anion Gap 15 H Blood Urea Nitrogen 37 #H Creatinine 5.06 #H Est Glomerular Filtrat Rate mL/min 12 L Glucose Level 99 Calcium Level 9.1 Magnesium Level 2.1 Subjective 24 Hr Interval Summary Constitutional: improved Exam/Review of Systems Exam Vitals Vital Signs Date Temp Pulse Resp B/P (MAP) Pulse Ox O2 O2 Flow FiO2 Time Delivery Rate 12/28/18 98.0 85 20 149/70 95 Nasal 15:40 (96) Cannula 12/28/18 2.0 08:00 Intake and Output 12/27/18 12/27/18 12/28/18 1515:00 23:00 07:00 IntakeIntake Total 100 ml 450 ml OutputOutput Total 5000 ml 300 ml BalanceBalance -4900 ml 150 ml Exam Constitutional: alert, oriented, chronically ill looking Head: atraumatic, normocephalic Neck: non-tender, supple Respiratory: diminished Cardiovascular: regular rate and rhythm Gastrointestinal: S/ NT / ND / +BS Extremities: no edema, Results Results 24hrs Laboratory Tests Test 12/28/18 05:45 White Blood Count 8.2 # Red Blood Count 3.63 L Hemoglobin 9.4 L Hematocrit 27.7 L Mean Corpuscular Volume 76.3 L Mean Corpuscular Hemoglobin 25.9 L Mean Corpuscular Hemoglobin Concent 33.9 Red Cell Distribution Width 16.0 H Platelet Count 298 Mean Platelet Volume 11.3 H Immature Granulocytes % 0.400 Neutrophils % 61.1 Lymphocytes % 18.0 Monocytes % 10.8 Eosinophils % 8.4 H Basophils % 1.3 Nucleated Red Blood Cells % 0.0 Immature Granulocytes # 0.030 Neutrophils # 5.0 Lymphocytes # 1.5 Monocytes # 0.9 Eosinophils # 0.7 H Basophils # 0.1 Nucleated Red Blood Cells # 0.0 Sodium Level 138 Potassium Level 2.9 *L Chloride Level 100 # Carbon Dioxide Level 23 # Anion Gap 15 H Blood Urea Nitrogen 37 #H Creatinine 5.06 #H Est Glomerular Filtrat Rate mL/min 12 L Glucose Level 99 Calcium Level 9.1 Magnesium Level 2.1 Medications Medication Current Medications Lorazepam (Ativan) 0.5 mg Q8H PRN PO .ANXIETY; Start 12/27/18 at 13:30 Ondansetron HCl (Zofran Inj) 4 mg Q6H PRN IV NAUSEA/VOMITING; Start 12/27/18 at 13:30 Aspirin (Aspirin) 81 mg DAILY PO Last administered on 12/28/18at 08:35; Admin Dose 81 MG; Start 12/28/18 at 09:00 Furosemide (Lasix) 40 mg BID DIURETICS IV Last administered on 12/28/18 17:42; Admin Dose 40 MG; Start 12/27/18 at 18:00 Nitroglycerin (Nitroglycerin (Sl Tab) 0.4 Mg) 1 tab Q5M PRN SL .CHEST PAIN; Start 12/27/18 at 13:30 Acetaminophen (Tylenol Tab) 650 mg Q6H PRN PO .PAIN 1-3 OR TEMP; Start 12/27/18 at 13:30 Acetaminophen/ Hydrocodone Bitart ([place] (5/325)) 1 tab Q6H PRN PO .PAIN 4-6 Last administered on 12/28/18 08:35; Admin Dose 1 TAB; Start 12/27/18 at 13:30 Zolpidem Tartrate (Ambien) 5 mg QHS PRN PO .INSOMNIA; Start 12/27/18 at 13:30 Docusate Sodium (Colace) 100 mg Q12 PO Last administered on 12/28/18 08:34; Admin Dose 100 MG; Start 12/27/18 at 13:30 Famotidine (Pepcid) 20 mg DAILY PO Last administered on 12/28/18 08:34; Admin Dose 20 MG; Start 12/27/18 at 13:30 Heparin Sodium (Porcine) (Heparin (5000 Units/1ml)) 5,000 unit Q12 SC Last administered on 12/28/18 08:36; Admin Dose 5,000 UNIT; Start 12/27/18 at 21:00 Heparin Sodium (Porcine) (Heparin (1000 Units/ml)) 3,200 unit AFTER DIALYSIS CATHETER Last administered on 12/27/18 19:37; Admin Dose 3,200 UNIT; Start 12/27/18 at 16:30 Atorvastatin Calcium (Lipitor) 20 mg QHS PO Last administered on 12/27/18 21:25; Admin Dose 20 MG; Start 12/27/18 at 21:00 Losartan Potassium (Cozaar) 25 mg QHS PO Last administered on 12/27/18 21:25; Admin Dose 25 MG; Start 12/27/18 at 21:00 Metoprolol Succinate (Toprol Xl) 50 mg DAILY PO Last administered on 12/28/18 08:35; Admin Dose 50 MG; Start 12/27/18 at 17:00 Sevelamer Carbonate (Renvela) 800 mg TID PO Last administered on 12/28/18at 12:17; Admin Dose 800 MG; Start 12/27/18 at 21:00 Fish Oil (Fish Oil) 1,000 mg BID PO Last administered on 12/28/18at 08:34; Admin Dose 1,000 MG; Start 12/27/18 at 21:00 Hydralazine HCl (Apresoline) 10 mg Q6H PRN IV sbp>160mmhg; Start 12/27/18 at 17:00 Epoetin Ricardo-epbx (Retacrit (Esrd)) 10,000 unit MoWeFr@1700 SC Last administered on 12/28/18at 17:20; Admin Dose 10,000 UNIT; Start 12/28/18 at 17:00 Clopidogrel Bisulfate (plaVIX) 75 mg DAILY PO ; Start 12/29/18 at 09:00 KARLA RICHARDSON Dec 28, 2018 19:43
[2018-12-28] MEDS: LOSARTAN 25 MG TAB PO SCH (21:00)
[2018-12-28] MEDS: ATORVASTATIN 20 MG TAB PO SCH (21:23)
[2018-12-28] MEDS: HEPARIN 1000 UNITS/ML 10 ML INJ CATHETER SCH (23:29)
[2018-12-29] VITALS (7 sets, daily range): BP systolic 115–134; BP diastolic 59–78; PULSE 84–99; RESP 16–20
[2018-12-29] MEDS: FUROSEMIDE 40 MG INJ IV SCH (05:53)
--- NOTE | 2018-12-29 07:19 | PN ---
DATE: 12/29/2018 SUBJECTIVE: The patient had hemodialysis yesterday, tolerated it well. The patient was noted to be markedly hypokalemic yesterday, was given potassium chloride. No other events noted. OBJECTIVE: VITAL SIGNS: Blood pressure is 134/76, respiration 20, pulse 99, temperature 98.0. HEENT: Head is normocephalic. NECK: Supple. HEART: Regular rate. LUNGS: Show diminished breath sounds at the base. ABDOMEN: Soft, nontender to palpation without rebound or guarding. EXTREMITIES: Negative for clubbing, cyanosis, no edema. DERMATOLOGIC: No rashes. MUSCULOSKELETAL: No joint effusion. NEUROLOGIC: No change in exam. MEDICATIONS: Have been reviewed. LABORATORY DATA: Has been reviewed. IMAGING STUDIES: Have been reviewed. ASSESSMENT AND PLAN: 1. End-stage renal disease. The patient had hemodialysis yesterday, tolerated well. Plan for dialy sis again tomorrow. 2. Anemia. Monitor hemoglobin and hematocrit levels. Continue Epogen. 3. Mineral bone disorder, monitor calcium and phosphorus levels. 4. Hypertension. Continue current blood pressure regimen. 5. Hypokalemia. Replete potassium chloride. The patient will be dialyzed on a high potassium bath. 6. Volume overload secondary to end-stage renal disease, improving. Continue ultrafiltration dialys is. 7. Chest pain. The patient had a mildly elevated troponin. Continue to monitor. Followup with card iology. 8. History of coronary artery disease. Coronary artery bypass graft, continue medical management. 9. Metabolic acidosis, improved. 10. Debility. Continue to monitor. Dictated By: REGINA TAYLOR DO NR/ZACHARY Conf#: [id number] DID#: [id number] CC: NIKI BRYSON MD;*EndCC*
[2018-12-29] MEDS: SEVELAMER CARBONATE 800 MG TABLET PO SCH ×3 (08:47→20:24)
[2018-12-29] MEDS: ASPIRIN 81 MG TAB PO SCH (08:48)
[2018-12-29] MEDS: FAMOTIDINE 20 MG TAB PO SCH (08:48)
[2018-12-29] MEDS: METOPROLOL (XL) 50 MG TAB PO SCH (08:48)
[2018-12-29] MEDS: CLOPIDOGREL 75 MG TAB PO SCH (08:49)
[2018-12-29] MEDS: DOCUSATE SODIUM 100 MG CAP PO SCH ×2 (08:49→20:24)
[2018-12-29] MEDS: HEPARIN 5,000 UNIT/1 ML VIAL SC SCH ×2 (08:58→20:38)
[2018-12-29] MEDS: FISH OIL 1,000 MG CAP PO SCH ×2 (08:59→20:24)
--- NOTE | 2018-12-29 11:09 | CONS ---
Consult Date/Type/Reason Admit Date/Time Dec 27, 2018 at 07:22 Initial Consult Date Type of Consult Pulmonary Date/Time of Note DATE: 12/29/18 TIME: 11:08 Subjective Patient better today. Less shortness of breath on 2 L nasal cannula. Objective Vital Signs Date Temp Pulse Resp B/P (MAP) Pulse Ox O2 O2 Flow FiO2 Time Delivery Rate 12/29/18 98.5 94 18 129/65 96 07:43 (86) 12/29/18 Nasal 04:00 Cannula 12/28/18 2.0 20:59 Intake and Output 12/28/18 12/28/18 12/29/18 1515:00 23:00 07:00 IntakeIntake Total 360 ml 550 ml OutputOutput Total 300 ml 2050 ml BalanceBalance 360 ml -300 ml -1500 ml Exam PHYSICAL EXAMINATION: GENERAL: Well-nourished, well-developed gentleman, comfortable at rest, no acute distress. VITAL SIGNS: NECK: Supple. No JVD or lymphadenopathy. CARDIAC: S1, S2, no added sounds or murmurs. CHEST: Diminished air entry bilaterally. ABDOMEN: Soft, nontender. No guarding or rebound. EXTREMITIES: No cyanosis, clubbing, 1+ edema. NEUROLOGIC: Generalized weakness. Results/Medications Result Diagram: 12/28/18 0545 12/29/18 0455 Results 24 hrs Laboratory Tests Test 12/29/18 04:55 Sodium Level 140 Potassium Level 3.6 Chloride Level 100 Carbon Dioxide Level 25 Anion Gap 15 H Blood Urea Nitrogen 18 # Creatinine 3.42 #H Est Glomerular Filtrat Rate mL/min 18 L Glucose Level 118 Calcium Level 9.9 Creatine Kinase 130 Creatine Kinase Index 0.9 Creatinine Kinase MB (Mass) 1.17 Troponin I 0.140 *H Medications Current Medications Lorazepam (Ativan) 0.5 mg Q8H PRN PO .ANXIETY; Start 12/27/18 at 13:30 Ondansetron HCl (Zofran Inj) 4 mg Q6H PRN IV NAUSEA/VOMITING; Start 12/27/18 at 13:30 Aspirin (Aspirin) 81 mg DAILY PO Last administered on 12/29/18at 08:48; Admin Dose 81 MG; Start 12/28/18 at 09:00 Furosemide (Lasix) 40 mg BID DIURETICS IV Last administered on 12/29/18at 05:53; Admin Dose 40 MG; Start 12/27/18 at 18:00 Nitroglycerin (Nitroglycerin (Sl Tab) 0.4 Mg) 1 tab Q5M PRN SL .CHEST PAIN; Start 12/27/18 at 13:30 Acetaminophen (Tylenol Tab) 650 mg Q6H PRN PO .PAIN 1-3 OR TEMP; Start 12/27/18 at 13:30 Acetaminophen/ Hydrocodone Bitart ([place] (5/325)) 1 tab Q6H PRN PO .PAIN 4-6 Last administered on 12/28/18 08:35; Admin Dose 1 TAB; Start 12/27/18 at 13:30 Zolpidem Tartrate (Ambien) 5 mg QHS PRN PO .INSOMNIA; Start 12/27/18 at 13:30 Docusate Sodium (Colace) 100 mg Q12 PO Last administered on 12/29/18 08:49; Admin Dose 100 MG; Start 12/27/18 at 13:30 Famotidine (Pepcid) 20 mg DAILY PO Last administered on 12/29/18 08:48; Admin Dose 20 MG; Start 12/27/18 at 13:30 Heparin Sodium (Porcine) (Heparin (5000 Units/1ml)) 5,000 unit Q12 SC Last administered on 12/29/18 08:58; Admin Dose 5,000 UNIT; Start 12/27/18 at 21:00 Heparin Sodium (Porcine) (Heparin (1000 Units/ml)) 3,200 unit AFTER DIALYSIS CATHETER Last administered on 12/28/18 23:29; Admin Dose 3,200 UNIT; Start 12/27/18 at 16:30 Atorvastatin Calcium (Lipitor) 20 mg QHS PO Last administered on 12/28/18 21:23; Admin Dose 20 MG; Start 12/27/18 at 21:00 Losartan Potassium (Cozaar) 25 mg QHS PO Last administered on 12/27/18 21:25; Admin Dose 25 MG; Start 12/27/18 at 21:00 Metoprolol Succinate (Toprol Xl) 50 mg DAILY PO Last administered on 12/29/18 08:48; Admin Dose 50 MG; Start 12/27/18 at 17:00 Sevelamer Carbonate (Renvela) 800 mg TID PO Last administered on 12/29/18 08:47; Admin Dose 800 MG; Start 12/27/18 at 21:00 Fish Oil (Fish Oil) 1,000 mg BID PO Last administered on 12/28/18at 21:23; Admin Dose 1,000 MG; Start 12/27/18 at 21:00 Hydralazine HCl (Apresoline) 10 mg Q6H PRN IV sbp>160mmhg; Start 12/27/18 at 17:00 Epoetin Ricardo-epbx (Retacrit (Esrd)) 10,000 unit MoWeFr@1700 SC Last administered on 12/28/18at 17:20; Admin Dose 10,000 UNIT; Start 12/28/18 at 17:00 Clopidogrel Bisulfate (plaVIX) 75 mg DAILY PO Last administered on 12/29/18at 08:49; Admin Dose 75 MG; Start 12/29/18 at 09:00 Assessment/Plan Hospital Course (Demo Recall) IMPRESSION 1. Hypoxemic respiratory failure secondary to volume overload from noncompliance with hemodialysis. 2. End-stage renal failure on hemodialysis. 3. Status post significant metabolic acidosis. 4. History of coronary artery disease. Plan 1. Continued hemodialysis. 2. Decrease O2 as tolerated. 3. Education on compliance. 4. Outpatient followup with me with repeat chest x-ray and pulmonary function testing. DC planning okay from pulmonary standpoint NOÉ CLEMONS MD, [facility] Dec 29, 2018 11:09
--- NOTE | 2018-12-29 11:40 | CONS ---
Assessment/Plan Assessment/Plan Hospital Course (Demo Recall) IMPRESSION: 1. Congestive heart failure exacerbation, systolic, acute on chronic. 2. Cardiomyopathy with decreased left ventricular ejection fraction, last known to be approximately 35% by echo 08/2018. 3. History of percutaneous transluminal coronary angioplasty and stent placement to saphenous vein graft supplying a diagonal. Saphenous vein graft supplying obtuse marginal 08/2018. 4. Hypertension, initially with hypertension urgency/emergency on admission. 5. Dyslipidemia. 6. End-stage renal disease on hemodialysis. 7. Shortness of breath secondary to #1. 8. abnl ecg-diffuse ST depresions. No chest pain 9. Positive troponin-minimal in setting of renal failure-? type 2 demand and was not on baseline plavix? Recc: -Tele -serial ecg's -Continue asa/plavix now -Contnue BB/losartan -Continue statin/Fish Oil -Trend cardiac enzymes -aggresive HD for volume removal Consultation Date/Type/Reason Admit Date/Time Dec 27, 2018 at 07:22 Initial Consult Date 12/28/18 Type of Consult Cardiology Reason for Consultation CHF Requesting Provider: KARLA RICHARDSON Date/Time of Note DATE: 12/29/18 TIME: 11:35 Exam/Review of Systems Vital Signs Vitals Vital Signs Date Temp Pulse Resp B/P (MAP) Pulse Ox O2 O2 Flow FiO2 Time Delivery Rate 12/29/18 98.5 91 18 115/62 98 11:16 (79) 12/29/18 Nasal 04:00 Cannula 12/28/18 2.0 20:59 Intake and Output 12/28/18 12/28/18 12/29/18 1515:00 23:00 07:00 IntakeIntake Total 360 ml 550 ml OutputOutput Total 300 ml 2050 ml BalanceBalance 360 ml -300 ml -1500 ml Exam Exam Review of Systems: CONSTITUTIONAL: No fevers, chills. PULMONARY: mild sob CARDIOVASCULAR: No chest pain/palpitations GASTROINTESTINAL: No nausea/vomiting. GENITOURINARY: No hematuria/dysuria. MUSCULOSKELETAL: No myagias/arthalgias. PSYCHIATRIC: The patient denies depression. NEUROLOGIC: No weakness Constitutional: alert Psych: no complaints Head: normocephalic ENMT: mucosa pink and moist Neck: supple, jvd (9 cm water) Respiratory: diminished breath sounds (at bases/B) Cardiovascular: regular rate and rhythm Gastrointestinal: soft, non-tender Musculoskeletal: muscle tone (normal) Extremities: edema (trace/B) Labs Result Diagram: 12/28/18 0545 12/29/18 0455 Results 24hrs Laboratory Tests Test 12/29/18 04:55 Sodium Level 140 Potassium Level 3.6 Chloride Level 100 Carbon Dioxide Level 25 Anion Gap 15 H Blood Urea Nitrogen 18 # Creatinine 3.42 #H Est Glomerular Filtrat Rate mL/min 18 L Glucose Level 118 Calcium Level 9.9 Creatine Kinase 130 Creatine Kinase Index 0.9 Creatinine Kinase MB (Mass) 1.17 Troponin I 0.140 *H Medications Medications Current Medications Lorazepam (Ativan) 0.5 mg Q8H PRN PO .ANXIETY; Start 12/27/18 at 13:30 Ondansetron HCl (Zofran Inj) 4 mg Q6H PRN IV NAUSEA/VOMITING; Start 12/27/18 at 13:30 Aspirin (Aspirin) 81 mg DAILY PO Last administered on 12/29/18at 08:48; Admin Dose 81 MG; Start 12/28/18 at 09:00 Furosemide (Lasix) 40 mg BID DIURETICS IV Last administered on 12/29/18at 05:53; Admin Dose 40 MG; Start 12/27/18 at 18:00 Nitroglycerin (Nitroglycerin (Sl Tab) 0.4 Mg) 1 tab Q5M PRN SL .CHEST PAIN; Start 12/27/18 at 13:30 Acetaminophen (Tylenol Tab) 650 mg Q6H PRN PO .PAIN 1-3 OR TEMP; Start 12/27/18 at 13:30 Acetaminophen/ Hydrocodone Bitart ([place] (5/325)) 1 tab Q6H PRN PO .PAIN 4-6 Last administered on 12/28/18at 08:35; Admin Dose 1 TAB; Start 12/27/18 at 13:30 Zolpidem Tartrate (Ambien) 5 mg QHS PRN PO .INSOMNIA; Start 12/27/18 at 13:30 Docusate Sodium (Colace) 100 mg Q12 PO Last administered on 12/29/18at 08:49; Admin Dose 100 MG; Start 12/27/18 at 13:30 Famotidine (Pepcid) 20 mg DAILY PO Last administered on 12/29/18at 08:48; Admin Dose 20 MG; Start 12/27/18 at 13:30 Heparin Sodium (Porcine) (Heparin (5000 Units/1ml)) 5,000 unit Q12 SC Last administered on 12/29/18 08:58; Admin Dose 5,000 UNIT; Start 12/27/18 at 21:00 Heparin Sodium (Porcine) (Heparin (1000 Units/ml)) 3,200 unit AFTER DIALYSIS CATHETER Last administered on 12/28/18 23:29; Admin Dose 3,200 UNIT; Start 12/27/18 at 16:30 Atorvastatin Calcium (Lipitor) 20 mg QHS PO Last administered on 12/28/18 21:23; Admin Dose 20 MG; Start 12/27/18 at 21:00 Losartan Potassium (Cozaar) 25 mg QHS PO Last administered on 12/27/18 21:25; Admin Dose 25 MG; Start 12/27/18 at 21:00 Metoprolol Succinate (Toprol Xl) 50 mg DAILY PO Last administered on 12/29/18 08:48; Admin Dose 50 MG; Start 12/27/18 at 17:00 Sevelamer Carbonate (Renvela) 800 mg TID PO Last administered on 12/29/18 08:47; Admin Dose 800 MG; Start 12/27/18 at 21:00 Fish Oil (Fish Oil) 1,000 mg BID PO Last administered on 12/28/18 21:23; Admin Dose 1,000 MG; Start 12/27/18 at 21:00 Hydralazine HCl (Apresoline) 10 mg Q6H PRN IV sbp>160mmhg; Start 12/27/18 at 17:00 Epoetin Ricardo-epbx (Retacrit (Esrd)) 10,000 unit MoWeFr@1700 SC Last administered on 12/28/18 17:20; Admin Dose 10,000 UNIT; Start 12/28/18 at 17:00 Clopidogrel Bisulfate (plaVIX) 75 mg DAILY PO Last administered on 12/29/18 08:49; Admin Dose 75 MG; Start 12/29/18 at 09:00 WILMER HOLLOWAY Dec 29, 2018 11:40
[2018-12-29] MEDS: HYDROCODONE/APAP (5/325) TAB PO PRN (13:58)
--- NOTE | 2018-12-29 14:34 | PDOCDIS ---
Discharge Instructions CONDITION [id number] Patient Condition: [id number] Stable HOME CARE INSTRUCTIONS: [id number] Diet Instructions: [id number] Low Fat /Cholesterol [id number] Special Diet: Vssdx4p Renal ACTIVITY: Kakhu1Yp Activity Restrictions: [id number] Slowly Increase Activity Rest between Activity FOLLOW UP/APPOINTMENTS Follow-up Plan * Resume your routine hemodialysis schedule on Wednesday and Fridays. If you have any questions, please ask before you leave. * Also followup with your primary doctor within the next 1-2 weeks. If you don't have one please let someone know, we can give you resources that may help you pick one. You may also call your insurance company to assign one to you. * Review your medication list with your nurse before leaving and if you need new prescriptions please let your nurse know. * I may have made changes to your home medications or given you new prescriptions, please let your primary doctor know as well. * Stay compliant with your medications and report any side effects to your PCP or pharmacist. * Return to the ER if you have any concerns and cannot reach your doctors or call your insurance company, they usually have a nurse that can help you. KARLA RICHARDSON Dec 29, 2018 14:34
--- NOTE | 2018-12-29 14:41 | DS ---
Date/Time of Note Date/Time of Note DATE: 12/29/18 TIME: 14:41 Discharge Summary Admission/Discharge Info Admit Date/Time Dec 27, 2018 at 07:22 Discharge Date/Time Discharge Diagnosis 64-year-old male who presented with left-sided chest pain and pressure with shortness of breath after being off dialysis for the last 2 months admitted and managed as follows: 1. Chest pain : resolved. ACS ruled out 2. Fluid overload/CHF exacerbation: improved 3. Chronic cardiomyopathy with last known ejection fraction and stress test August 2018 and 30% 4. End-stage renal disease on hemodialysis, off hemodialysis for the last 2 months per her choice and the hope was that he would no longer required 5. Metabolic acidosis likely secondary to #4: improved 6. Hypochromic anemia: stable 7. Acute bronchitis : improved 8. CAD s/p[ CABG and recent PCI . Patient Condition: Stable Consults cardiology: Jarred Contreras MD Nephroogy: Ed Cervantes DO . Hx of Present Illness 68-year-old male who presents to us with left-sided chest pain and pressure ass ociated with shortness of breath and required short course of CPAP. The patient was found to be fluid overload, he is a known dialysis patient but has been off dialysis for the past 2months per his choice. There is been no passing out episodes, no abdominal pain or dysuria or hematuria. Hospital Course The patient was admitted, he ruled out for acute coronary syndrome, he was resumed on hemodialysis with significant overall improvement. So far he has had 2 hemodialysis sessions in-house, apparently his outpatient schedule is Wednesday and Fridays, if discharged today he can go to his dialysis session outpatient tomorrow. Currently he is stable on room air, he is tolerating a diet. He did have a mild spike in troponin levels earlier today, but it has trended down. Patient is asymptomatic. The patient has also been off his Plavix. If cleared by cardiology, will go ahead and discharge the patient. Case management is also working on resuming outpatient hemodialysis. If all this is completed today, the patient to be discharged in stable condition. Discharge Meds: Sometimes changes are made to final medication list after discharge summary has been dictated, hence for complete and accurate discharge meds, please review discharge med list in patient's chart. Thank you. Disclaimer: Inadvertent spelling and grammatical errors as well as erroneous comments are likely due to EHR/dictation software use and do not reflect on the quality of delivered patient care. They will be resolved as soon as possible once noted. Also, please note that the electronic time recorded on this node does not necessarily reflect the actual time of the visit. . Home Meds Reported Medications Losartan Potassium* (Losartan Potassium*) 25 Mg Tablet, 25 MG PO QHS, TAB 12/27/18 Clonidine Hcl* (Clonidine Hcl*) 0.1 Mg Tab, 0.1 MG PO BID PRN for ELEVATED BLOOD PRESSURE, TAB 12/27/18 Sevelamer Carbonate (Sevelamer Carbonate) 800 Mg Tablet, 1 TAB ORAL TID 09/03/18 Shunk-3 Acid Ethyl Esters (Shunk-3 Acid Ethyl Esters) 1 Gm Capsule, 1 CAP ORAL BID 09/03/18 Atorvastatin* (Atorvastatin*) 80 Mg Tablet, 1 TAB ORAL QHS 09/03/18 Metoprolol Succinate* (Toprol XL*) 50 Mg Tab.er.24h, 1 TAB ORAL DAILY 09/03/18 Discontinued Reported Medications Nitroglycerin* (Nitrostat*) 0.4 Mg Tab.subl, 0.4 MG SL Q5MIN PRN for CHEST PAIN, BOTTLE 09/03/18 Aspirin* (Aspirin* EC) 81 Mg Tablet.dr, 1 TAB ORAL DAILY 09/03/18 Famotidine* (Famotidine*) 20 Mg Tablet, 20 MG PO BID, TAB 08/22/15 Discontinued Scripts Acetaminophen* (Tylenol*) 325 Mg Tablet, 650 MG PO Q4H PRN for PAIN for 7 Days, TAB Prov:HERNANDEZ BUCHANAN MD 09/07/18 Isosorbide Mononitrate* (Isosorbide Mononitrate*) 30 Mg Tab.er.24h, 60 MG PO DAILY for 14 Days, #14 Prov:HERNANDEZ BUCHANAN MD 09/07/18 Nicotine* (Nicotine* Patch) 7 mg/day Patch, 1 PATCH TRANSDERM DAILY for 28 Days Prov:HERNANDEZ BUCHANAN MD 09/07/18 Guaifenesin-Dextromethorphan* (Robitussin* DM) 100MG/10MG/5ML Syrup, 10 ML PO Q4H PRN for cough for 30 Days Prov:KASSY CHAVIS NP 10/21/15 Amlodipine Besylate* (Amlodipine Besylate*) 10 Mg Tablet, 10 MG PO DAILY for 30 Days, TAB Prov:DALE CHAVISANNETTE Vega [employer] 10/21/15 Nicotine* (Nicoderm* Patch) 1 Patch Patch, 1 PATCH TRANSDERM DAILY for 30 Days, PATCH Prov:KARLA RICHARDSON. 08/25/15 Hydralazine Hcl* (Hydralazine Hcl*) 25 Mg Tab, 100 MG PO BID for 30 Days, TAB Prov:KARLA RICHARDSON M. 08/25/15 Doxazosin Mesylate* (Cardura*) 2 Mg Tab, 4 MG PO HS for 30 Days, TAB Prov:KARLA RICHARDSON M. 08/25/15 Clopidogrel Bisulfate (Clopidogrel) 75 Mg Tab, 75 MG PO DAILY for 30 Days, TAB Prov:KARLA RICHARDSON. 08/25/15 Follow-up Plan * Resume your routine hemodialysis schedule on Wednesday and Fridays. If you have any questions, please ask before you leave. * Also followup with your primary doctor within the next 1-2 weeks. If you don't have one please let someone know, we can give you resources that may help you pick one. You may also call your insurance company to assign one to you. * Review your medication list with your nurse before leaving and if you need new prescriptions please let your nurse know. * I may have made changes to your home medications or given you new presc riptions, please let your primary doctor know as well. * Stay compliant with your medications and report any side effects to your PCP or pharmacist. * Return to the ER if you have any concerns and cannot reach your doctors or call your insurance company, they usually have a nurse that can help you. Primary Care Provider Not On Staff Doctor Time spent on discharge: > 30 minutes Pending Labs Laboratory Tests Test 12/29/18 04:55 12/29/18 11:54 Sodium Level 140 mmol/L (135-144) Potassium Level 3.6 mmol/L (3.5-5.1) Chloride Level 100 mmol/L (97-110) Carbon Dioxide Level 25 mmol/L (21-31) Anion Gap 15 (5-13) Blood Urea Nitrogen 18 mg/dl (7-20) Creatinine 3.42 mg/dl (0.61-1.24) Est Glomerular Filtrat 18 mL/min (>60) Rate mL/min Glucose Level 118 mg/dl (70-220) Calcium Level 9.9 mg/dl (8.4-10.2) Creatine Kinase 130 IU/L (23-200) 99 IU/L (23-200) Creatine Kinase Index 0.9 0.9 Creatinine Kinase MB 1.17 ng/ml (0.0-2.4) 0.91 ng/ml (0.0-2.4) (Mass) Troponin I 0.140 ng/ml (0.000-0.120) 0.115 ng/ml (0.000-0.120) KARLA RICHARDSON Dec 29, 2018 14:41
[2018-12-29] MEDS ORDERED: AZITHROMYCIN 250 MG TAB PO ONE (15:00)
[2018-12-29] MEDS: FUROSEMIDE 40 MG TAB PO SCH (18:38)
[2018-12-29] MEDS: ATORVASTATIN 20 MG TAB PO SCH (20:24)
[2018-12-29] MEDS: LOSARTAN 25 MG TAB PO SCH (20:25)
--- NOTE | 2018-12-29 20:55 | RADRPT ---
Vent Rate: 94 bpm RR Interval: 636 msec [place] Interval: 147 msec QRS Duration: 114 msec QT Interval: 380 msec QTC Interval: 476 msec P-R-T [place]: 67 - 69 - 253 degrees Sinus rhythm...normal P axis, V-rate 50- 99 LAE, consider biatrial enlargement...P>80mS <-.15mV V1&>.25mV limb lds LVH with IVCD and secondary repol abnrm...multi-criteria, wQRSd, abnr ST-T Repol abnrm, severe global ischemia (LM/MVD)...Jessica aVR, STd & Tneg, ant/lat/inf Electronically Signed By: Mick Zepeda
[2018-12-30] VITALS (16 sets, daily range): BP systolic 100–162; BP diastolic 56–103; PULSE 77–113; RESP 18–19
[2018-12-30] MEDS: FUROSEMIDE 40 MG TAB PO SCH ×2 (05:48→17:50)
--- NOTE | 2018-12-30 08:31 | PN ---
DATE: 12/30/2018 SUBJECTIVE: The patient is stable, no events overnight. No fevers, chills. OBJECTIVE: VITAL SIGNS: Blood pressure is 140/73, pulse 100, respiration 19, temperature 98.1. HEENT: Head is normocephalic. NECK: Supple. HEART: Regular rate. LUNGS: Show diminished breath sounds at the base. ABDOMEN: Soft, nontender to palpation without rebound or guarding. EXTREMITIES: Negative for clubbing, cyanosis, no edema. DERMATOLOGIC: No rashes. MUSCULOSKELETAL: No joint effusion. NEUROLOGIC: No change in exam. MEDICATIONS: Have been reviewed. LABORATORY DATA: Has been reviewed. IMAGING STUDIES: Have been reviewed. ASSESSMENT AND PLAN: 1. End-stage renal disease, plan for hemodialysis today. 2. Anemia. Monitor hemoglobin and hematocrit levels. Continue Epogen. 3. Mineral bone disorder. Monitor calcium and phosphorus levels. 4. Hypertension. Continue current blood pressure regimen. 5. Hypokalemia. Continue dialysis on a high potassium bath until potassium levels have normalized. 6. Volume overload, end-stage renal disease, improving. Continue ultrafiltration dialysis. 7. Chest pain, resolved. Continue to monitor. Follow up with cardiology. 8. History of coronary artery disease, history of coronary artery bypass graft, continue medical man agement. 9. Metabolic acidosis, improved. 10. Debility. Continue to monitor. Dictated By: REGINA MCGRATH/NTS Conf#: [id number] DID#: [id number] CC: NIKI BRYSON MD;*EndCC*
[2018-12-30] MEDS: ASPIRIN 81 MG TAB PO SCH (09:00)
[2018-12-30] MEDS: SEVELAMER CARBONATE 800 MG TABLET PO SCH ×3 (09:00→22:23)
[2018-12-30] MEDS: FISH OIL 1,000 MG CAP PO SCH ×2 (09:00→22:23)
[2018-12-30] MEDS: DOCUSATE SODIUM 100 MG CAP PO SCH ×2 (09:00→22:22)
[2018-12-30] MEDS: METOPROLOL (XL) 50 MG TAB PO SCH (09:00)
[2018-12-30] MEDS: FAMOTIDINE 20 MG TAB PO SCH (09:00)
[2018-12-30] MEDS: CLOPIDOGREL 75 MG TAB PO SCH (09:00)
[2018-12-30] MEDS: HEPARIN 5,000 UNIT/1 ML VIAL SC SCH ×2 (09:03→22:34)
--- NOTE | 2018-12-30 11:43 | DS ---
Date/Time of Note Date/Time of Note DATE: 12/30/18 TIME: 11:41 Discharge Summary Admission/Discharge Info Admit Date/Time Dec 27, 2018 at 07:22 Discharge Date/Time Discharge Diagnosis 64-year-old male who presented with left-sided chest pain and pressure with shortness of breath after being off dialysis for the last 2 months admitted and managed as follows: 1. Chest pain : resolved. ACS ruled out 2. Fluid overload/CHF exacerbation: improved 3. Chronic cardiomyopathy with last known ejection fraction and stress test August 2018 and 30% 4. End-stage renal disease on hemodialysis, off hemodialysis for the last 2 months per his choice and the hope was that he would no longer require it , denies suicidal ideation 5. Metabolic acidosis likely secondary to #4: improved 6. Hypochromic anemia: stable 7. Acute bronchitis : improved 8. CAD s/p[ CABG and recent PCI: resumed on plavix . Patient Condition: Stable Consults Nephrology: Ed Cervantes MD DO Cardiology: Jarred Contreras MD . Hx of Present Illness 68-year-old male who presents to us with left-sided chest pain and pressure associated with shortness of breath and required short course of CPAP. The wolfgang ent was found to be fluid overload, he is a known dialysis patient but has been off dialysis for the past 2months per his choice. There is been no passing out episodes, no abdominal pain or dysuria or hematuria. Hospital Course The patient was admitted, he ruled out for acute coronary syndrome, he was resumed on hemodialysis with significant overall improvement. So far he has had 2 hemodialysis sessions in-house, apparently his outpatient schedule is Wednesday and Fridays, if discharged today he can go to his dialysis session outpatient tomorrow. Currently he is stable on room air, he is tolerating a diet. He did have a mild spike in troponin levels but it has trended down. Patient is asymptomatic. The patient has also been off his Plavix for a while, and this was resumed in-house. At this time, the patient has been cleared by all specialties, arrangements have been made and is in place for outpatient hemodialysis. Patient per his routine schedule will get hemodialysis today after which she will be discharged in stable condition. He will resume outpatient hemodialysis on Wednesday schedule. Discharge Meds: Sometimes changes are made to final medication list after discharge summary has been dictated, hence for complete and accurate discharge meds, please review discharge med list in patient's chart. Thank you. Disclaimer: Inadvertent spelling and grammatical errors as well as erroneous comments are likely due to EHR/dictation software use and do not reflect on the quality of delivered patient care. They will be resolved as soon as possible once noted. Also, please note that the electronic time recorded on this node does not necessarily reflect the actual time of the visit. . Home Meds Reported Medications Losartan Potassium* (Losartan Potassium*) 25 Mg Tablet, 25 MG PO QHS, TAB 12/27/18 Clonidine Hcl* (Clonidine Hcl*) 0.1 Mg Tab, 0.1 MG PO BID PRN for ELEVATED BLOOD PRESSURE, TAB 12/27/18 Sevelamer Carbonate (Sevelamer Carbonate) 800 Mg Tablet, 1 TAB ORAL TID 09/03/18 [place]-3 Acid Ethyl Esters ([place]-3 Acid Ethyl Esters) 1 Gm Capsule, 1 CAP ORAL BID 09/03/18 Atorvastatin* (Atorvastatin*) 80 Mg Tablet, 1 TAB ORAL QHS 09/03/18 Metoprolol Succinate* (Toprol XL*) 50 Mg Tab.er.24h, 1 TAB ORAL DAILY 09/03/18 Discontinued Reported Medications Nitroglycerin* (Nitrostat*) 0.4 Mg Tab.subl, 0.4 MG SL Q5MIN PRN for CHEST PAIN, BOTTLE 09/03/18 Aspirin* (Aspirin* EC) 81 Mg Tablet.dr, 1 TAB ORAL DAILY 09/03/18 Famotidine* (Famotidine*) 20 Mg Tablet, 20 MG PO BID, TAB 08/22/15 Discontinued Scripts Acetaminophen* (Tylenol*) 325 Mg Tablet, 650 MG PO Q4H PRN for PAIN for 7 Days, TAB Prov:HERNANDEZ BUCHANAN MD 09/07/18 Isosorbide Mononitrate* (Isosorbide Mononitrate*) 30 Mg Tab.er.24h, 60 MG PO DAILY for 14 Days, #14 Prov:HERNANDEZ BUCHANAN MD 09/07/18 Nicotine* (Nicotine* Patch) 7 mg/day Patch, 1 PATCH TRANSDERM DAILY for 28 Days Prov:HERNANDEZ BUCHANAN MD 09/07/18 Guaifenesin-Dextromethorphan* (Robitussin* DM) 100MG/10MG/5ML Syrup, 10 ML PO Q4H PRN for cough for 30 Days Prov:KASSY CHAVIS V. RIVET MACHINE OPERATOR 10/21/15 Amlodipine Besylate* (Amlodipine Besylate*) 10 Mg Tablet, 10 MG PO DAILY for 30 Days, TAB Prov:CHAVISKASSY V. RIVET MACHINE OPERATOR 10/21/15 Nicotine* (Nicoderm* Patch) 1 Patch Patch, 1 PATCH TRANSDERM DAILY for 30 Days, PATCH Prov:SAMAN RICHARDSONTILA M. 08/25/15 Hydralazine Hcl* (Hydralazine Hcl*) 25 Mg Tab, 100 MG PO BID for 30 Days, TAB Prov:DEBRASAMANTILA M. 08/25/15 Doxazosin Mesylate* (Cardura*) 2 Mg Tab, 4 MG PO HS for 30 Days, TAB Prov:DEBRASAMANTILA M. 08/25/15 Clopidogrel Bisulfate (Clopidogrel) 75 Mg Tab, 75 MG PO DAILY for 30 Days, TAB Prov:SAMAN RICHARDSONTILA Mejia. 08/25/15 Follow-up Plan * Resume your routine hemodialysis schedule on Wednesday and Fridays. If you have any questions, please ask before you leave. * Also followup with your primary doctor within the next 1-2 weeks. If you don't have one please let someone know, we can give you resources that may help you pick one. You may also call your insurance company to assign one to you. * Review your medication list with your nurse before leaving and if you need new prescriptions please let your nurse know. * I may have made changes to your home medications or given you new prescriptions, please let your primary doctor know as well. * Stay compliant with your medications and report any side effects to your PCP or pharmacist. * Return to the ER if you have any concerns and cannot reach your doctors or call your insurance company, they usually have a nurse that can help you. Primary Care Provider Not On Staff Doctor Time spent on discharge: < 30 minutes Pending Labs Laboratory Tests Test 12/29/18 11:54 12/29/18 17:59 Creatine Kinase 99 IU/L (23-200) 75 IU/L (23-200) Creatine Kinase Index 0.9 0.8 Creatinine Kinase MB 0.91 ng/ml (0.0-2.4) 0.63 ng/ml (0.0-2.4) (Mass) Troponin I 0.115 ng/ml (0.000-0.120) 0.093 ng/ml (0.000-0.120) KARLA RICHARDSON Dec 30, 2018 11:43
[2018-12-30] MEDS: HYDROCODONE/APAP (5/325) TAB PO PRN (12:14)
--- NOTE | 2018-12-30 13:02 | CONS ---
Assessment/Plan Assessment/Plan Hospital Course (Demo Recall) IMPRESSION: 1. Congestive heart failure exacerbation, systolic, acute on chronic. 2. Cardiomyopathy with decreased left ventricular ejection fraction, last known to be approximately 35% by echo 08/2018. 3. History of percutaneous transluminal coronary angioplasty and stent placement to saphenous vein graft supplying a diagonal. Saphenous vein graft supplying obtuse marginal 08/2018. 4. Hypertension, initially with hypertension urgency/emergency on admission. 5. Dyslipidemia. 6. End-stage renal disease on hemodialysis. 7. Shortness of breath secondary to #1. 8. abnl ecg-diffuse ST depresions. No chest pain 9. Positive troponin-minimal in setting of renal failure-? type 2 demand and was not on baseline plavix?. Now trended negative. Denies CP Recc: -Tele -serial ecg's -Continue asa/plavix now -Contnue BB/losartan -Continue statin/Fish Oil -Trend cardiac enzymes -aggresive HD for volume removal Consultation Date/Type/Reason Admit Date/Time Dec 27, 2018 at 07:22 Initial Consult Date 12/28/18 Type of Consult Cardiology Reason for Consultation CHF Requesting Provider: KARLA RICHARDSON Date/Time of Note DATE: 12/30/18 TIME: 12:59 Exam/Review of Systems Vital Signs Vitals Vital Signs Date Temp Pulse Resp B/P (MAP) Pulse Ox O2 O2 Flow FiO2 Time Delivery Rate 12/30/18 100 11:55 12/30/18 98.4 19 120/74 96 11:12 (89) 12/30/18 Room Air 11:10 12/30/18 2.0 09:50 Intake and Output 12/29/18 12/29/18 12/30/18 1515:00 23:00 07:00 IntakeIntake Total 550 ml 300 ml OutputOutput Total 250 ml BalanceBalance 550 ml 50 ml Exam Exam Review of Systems: CONSTITUTIONAL: No fevers, chills. PULMONARY: No sob CARDIOVASCULAR: No chest pain/palpitations GASTROINTESTINAL: No nausea/vomiting. GENITOURINARY: No hematuria/dysuria. MUSCULOSKELETAL: No myagias/arthalgias. PSYCHIATRIC: The patient denies depression. NEUROLOGIC: No weakness Constitutional: alert Psych: no complaints Head: normocephalic ENMT: mucosa pink and moist Neck: supple, jvd (9 cm water) Respiratory: diminished breath sounds (at bases/B) Cardiovascular: regular rate and rhythm Gastrointestinal: soft, non-tender Musculoskeletal: muscle tone (normal) Extremities: edema (trace/B LE) Labs Result Diagram: 12/28/18 0545 12/29/18 0455 Results 24hrs Laboratory Tests Test 12/29/18 17:59 Creatine Kinase 75 Creatine Kinase Index 0.8 Creatinine Kinase MB (Mass) 0.63 Troponin I 0.093 Medications Medications Current Medications Lorazepam (Ativan) 0.5 mg Q8H PRN PO .ANXIETY; Start 12/27/18 at 13:30 Ondansetron HCl (Zofran Inj) 4 mg Q6H PRN IV NAUSEA/VOMITING; Start 12/27/18 at 13:30 Aspirin (Aspirin) 81 mg DAILY PO Last administered on 12/30/18at 09:00; Admin Dose 81 MG; Start 12/28/18 at 09:00 Furosemide (Lasix) 40 mg BID DIURETICS IV Last administered on 12/29/18at 05:53; Admin Dose 40 MG; Start 12/27/18 at 18:00; Status Hold Nitroglycerin (Nitroglycerin (Sl Tab) 0.4 Mg) 1 tab Q5M PRN SL .CHEST PAIN Last administered on 12/30/18at 12:46; Admin Dose 1 TAB; Start 12/27/18 at 13:30 Acetaminophen (Tylenol Tab) 650 mg Q6H PRN PO .PAIN 1-3 OR TEMP; Start 12/27/18 at 13:30 Acetaminophen/ Hydrocodone Bitart ([place] (5/325)) 1 tab Q6H PRN PO .PAIN 4-6 Last administered on 12/30/18at 12:14; Admin Dose 1 TAB; Start 12/27/18 at 13:30 Zolpidem Tartrate (Ambien) 5 mg QHS PRN PO .INSOMNIA; Start 12/27/18 at 13:30 Docusate Sodium (Colace) 100 mg Q12 PO Last administered on 12/30/18at 09:00; Admin Dose 100 MG; Start 12/27/18 at 13:30 Famotidine (Pepcid) 20 mg DAILY PO Last administered on 12/30/18at 09:00; Admin Dose 20 MG; Start 12/27/18 at 13:30 Heparin Sodium (Porcine) (Heparin (5000 Units/1ml)) 5,000 unit Q12 SC Last administered on 12/30/18 09:03; Admin Dose 5,000 UNIT; Start 12/27/18 at 21:00 Heparin Sodium (Porcine) (Heparin (1000 Units/ml)) 3,200 unit AFTER DIALYSIS CATHETER Last administered on 12/28/18 23:29; Admin Dose 3,200 UNIT; Start 12/27/18 at 16:30 Atorvastatin Calcium (Lipitor) 20 mg QHS PO Last administered on 12/29/18 20:24; Admin Dose 20 MG; Start 12/27/18 at 21:00 Losartan Potassium (Cozaar) 25 mg QHS PO Last administered on 12/27/18 21:25; Admin Dose 25 MG; Start 12/27/18 at 21:00 Metoprolol Succinate (Toprol Xl) 50 mg DAILY PO Last administered on 12/29/18 08:48; Admin Dose 50 MG; Start 12/27/18 at 17:00 Sevelamer Carbonate (Renvela) 800 mg TID PO Last administered on 12/30/18 09:00; Admin Dose 800 MG; Start 12/27/18 at 21:00 Fish Oil (Fish Oil) 1,000 mg BID PO Last administered on 12/30/18 09:00; Admin Dose 1,000 MG; Start 12/27/18 at 21:00 Hydralazine HCl (Apresoline) 10 mg Q6H PRN IV sbp>160mmhg; Start 12/27/18 at 17:00 Epoetin Ricardo-epbx (Retacrit (Esrd)) 10,000 unit MoWeFr@1700 SC Last administered on 12/28/18 17:20; Admin Dose 10,000 UNIT; Start 12/28/18 at 17:00 Clopidogrel Bisulfate (plaVIX) 75 mg DAILY PO Last administered on 12/30/18 09:00; Admin Dose 75 MG; Start 12/29/18 at 09:00 Furosemide (Lasix) 40 mg BID DIURETICS PO Last administered on 12/30/18 05:48; Admin Dose 40 MG; Start 12/29/18 at 18:30 WILMER HOLLOWAY Dec 30, 2018 13:02
[2018-12-30] MEDS: HEPARIN 1000 UNITS/ML 10 ML INJ CATHETER SCH (13:25)
[2018-12-30] MEDS ORDERED: DEXTROSE 5%-0.45% NACL 500 ML BAG IV ONE (13:30)
--- NOTE | 2018-12-30 13:34 | EN ---
Date/Time of Note Date/Time of Note DATE: 12/30/18 TIME: 13:33 Event Note Medicine Medicine Event Note Patient had transient near syncopal episode during hemodialysis. Likely secondary to the fact that he barely had any breakfast. I have ordered for chest x-ray and EKG. We will do one set of cardiac enzymes. Will probably observe in-house overnight and plan to discharge tomorrow just to ensure that he is doing well. KARLA RICHARDSON Dec 30, 2018 13:34
--- NOTE | 2018-12-30 16:02 | RADRPT ---
Vent Rate: 93 bpm RR Interval: 644 msec IA Interval: 156 msec QRS Duration: 112 msec QT Interval: 375 msec QTC Interval: 467 msec P-R-T [place]: 79 - 68 - 240 degrees Sinus rhythm...normal P axis, V-rate 50- 99 Biatrial enlargement...P>80mS,<-0.15mV V1 &>0.30mV 2 lds LVH with IVCD and secondary repol abnrm...multi-criteria, wQRSd, abnr ST-T ST depr, consider ischemia, inferior leads...ST <-0.10mV, II III aVF Electronically Signed By: Mick Zepeda
[2018-12-30] MEDS: EPOETIN ALFA-EPBX (ESRD) 10,000 UNIT/ML VIAL SC SCH (17:51)
[2018-12-30] MEDS: LOSARTAN 25 MG TAB PO SCH (21:00)
[2018-12-30] MEDS: ATORVASTATIN 20 MG TAB PO SCH (22:23)
[2018-12-31 00:08] VITALS: BP 127/67; PULSE 96; RESP 18
[2018-12-31 04:04] VITALS: BP 113/59; PULSE 95; RESP 18
[2018-12-31] MEDS: FUROSEMIDE 40 MG TAB PO SCH (05:46)
[2018-12-31 07:31] VITALS: BP 128/73; PULSE 98; RESP 20
[2018-12-31] MEDS: ASPIRIN 81 MG TAB PO SCH (08:28)
[2018-12-31] MEDS: DOCUSATE SODIUM 100 MG CAP PO SCH (08:28)
[2018-12-31] MEDS: CLOPIDOGREL 75 MG TAB PO SCH (08:28)
[2018-12-31] MEDS: FAMOTIDINE 20 MG TAB PO SCH (08:28)
[2018-12-31] MEDS: SEVELAMER CARBONATE 800 MG TABLET PO SCH ×2 (08:29→12:23)
[2018-12-31] MEDS: METOPROLOL (XL) 50 MG TAB PO SCH (08:29)
[2018-12-31] MEDS: FISH OIL 1,000 MG CAP PO SCH (08:32)
[2018-12-31] MEDS: HEPARIN 5,000 UNIT/1 ML VIAL SC SCH (08:32)
--- NOTE | 2018-12-31 08:39 | PN ---
DATE: 12/31/2018 SUBJECTIVE: The patient yesterday had hemodialysis, became hypotensive, dialysis was discontinued. The patient was given fluid bolus. No other events noted. No hemoptysis, hematemesis, hematochezia. OBJECTIVE: VITAL SIGNS: Blood pressure is 120/73, respirations 20, pulse 98, temperature 98.3. HEENT: Head is normocephalic. NECK: Supple. HEART: Regular rate. LUNGS: Show diminished breath sounds at the base. ABDOMEN: Soft, nontender to palpation without rebound or guarding. EXTREMITIES: Negative for clubbing, cyanosis, no edema. DERMATOLOGIC: No rashes. MUSCULOSKELETAL: No joint effusion. NEUROLOGIC: No change in exam. MEDICATIONS: Reviewed. LABORATORY DATA: Reviewed. IMAGING STUDIES: Have been reviewed via emergency. ASSESSMENT AND PLAN: 1. End-stage renal disease. The patient had hemodialysis yesterday. Dialysis was held after 2-1/2 hours as the patient was hypotensive. Anticipate next hemodialysis on Wednesday. 2. Anemia. Monitor hemoglobin and hematocrit levels. Continue Epogen. 3. Mineral bone disorder. Monitor calcium and phosphorus levels. 4. Hypertension. Continue current blood pressure regimen. 5. Hypokalemia, improved. 6. Volume overload, improved. Will continue ultrafiltration dialysis. 7. Chest pain, resolved. 8. History of coronary artery disease, history of coronary artery bypass graft. Continue medical ma nagement. 9. Metabolic acidosis, improved. 10. Debility. Continue physical therapy. Dictated By: REGINA TAYLOR DO NR/NTS Conf#: [id number] DID#: [id number] CC: NIKI BRYSON MD;*EndCC*
[2018-12-31 11:15] VITALS: BP 127/75; PULSE 84; RESP 20
--- NOTE | 2018-12-31 16:06 | DS ---
Date/Time of Note Date/Time of Note DATE: 12/31/18 TIME: 16:04 Discharge Summary Admission/Discharge Info Admit Date/Time Dec 27, 2018 at 07:22 Discharge Date/Time Dec 31, 2018 at 14:00 Discharge Diagnosis 64-year-old male who presented with left-sided chest pain and pressure with shortness of breath after being off dialysis for the last 2 months admitted and managed as follows: 1. Chest pain : resolved. ACS ruled out 2. Fluid overload/CHF exacerbation: improved 3. Chronic cardiomyopathy with last known ejection fraction and stress test August 2018 and 30% 4. End-stage renal disease on hemodialysis, off hemodialysis for the last 2 months per his choice and the hope was that he would no longer require it , denies suicidal ideation 5. Metabolic acidosis likely secondary to #4: improved 6. Hypochromic anemia: stable 7. Acute bronchitis : improved 8. CAD s/p[ CABG and recent PCI: resumed on plavix . Patient Condition: Fair Hx of Present Illness 68-year-old man who presents to [facility] with left-sided chest pain and pressure associated with shortness of breath and required short course of CPAP. The patient was found to be fluid overload, he is a known dialysis patient but has been off dialysis for the past 2months per his choice. There is been no passing out episodes, no abdominal pain or dysuria or hematuria. Hospital Course The patient got dialysis as scheduled, and symptoms improved. His troponin was a ctually negative x3. There was a rapid response called on Dec 30 prior to discharge; the patient was given nitroglycerin during dialysis due to chest pain and he developed severe hypotension and became minimally responsive for a short time. However he quickly returned to baseline. Also of note, a sputum culture was done which is growing gram negative rods at time of discharge. However CXR is clear of infiltrates and the patient has no fever, productive cough, or other evidence of pneumonia. He will be discharged on a brief course of azithromycin. Home Meds Active Scripts Azithromycin* (Azithromycin*) 250 Mg Tablet, 250 MG PO DAILY, #4 TAB Prov:KARLA RICHARDSON M. 12/29/18 Famotidine* (Famotidine*) 20 Mg Tablet, 20 MG PO DAILY, #30 TAB Prov:KARLA RICHARDSON M. 12/29/18 Docusate Sodium* (Colace*) 100 Mg Capsule, 100 MG PO Q12, #30 CAP 1 Refill Prov:KARLA RICHARDSON. 12/29/18 Aspirin (Aspirin) 81 Mg Chew, 81 MG PO DAILY, #30 TAB 2 Refills Prov:KARLA RICHARDSON. 12/29/18 Clopidogrel Bisulfate (Clopidogrel) 75 Mg Tablet, 75 MG PO DAILY, #30 TAB 2 Refills Prov:KARLA RICHARDSON. 12/29/18 Reported Medications Losartan Potassium* (Losartan Potassium*) 25 Mg Tablet, 25 MG PO QHS, TAB 12/27/18 Clonidine Hcl* (Clonidine Hcl*) 0.1 Mg Tab, 0.1 MG PO BID PRN for ELEVATED BLOOD PRESSURE, TAB 12/27/18 Sevelamer Carbonate (Sevelamer Carbonate) 800 Mg Tablet, 1 TAB ORAL TID 09/03/18 [place]-3 Acid Ethyl Esters ([place]-3 Acid Ethyl Esters) 1 Gm Capsule, 1 CAP ORAL BID 09/03/18 Atorvastatin* (Atorvastatin*) 80 Mg Tablet, 1 TAB ORAL QHS 09/03/18 Metoprolol Succinate* (Toprol XL*) 50 Mg Tab.er.24h, 1 TAB ORAL DAILY 09/03/18 Discontinued Reported Medications Nitroglycerin* (Nitrostat*) 0.4 Mg Tab.subl, 0.4 MG SL Q5MIN PRN for CHEST PAIN, BOTTLE 09/03/18 Aspirin* (Aspirin* EC) 81 Mg Tablet.dr, 1 TAB ORAL DAILY 09/03/18 Famotidine* (Famotidine*) 20 Mg Tablet, 20 MG PO BID, TAB 08/22/15 Discontinued Scripts Acetaminophen* (Tylenol*) 325 Mg Tablet, 650 MG PO Q4H PRN for PAIN for 7 Days, TAB Prov:HERNANDEZ BUCHANAN MD 09/07/18 Isosorbide Mononitrate* (Isosorbide Mononitrate*) 30 Mg Tab.er.24h, 60 MG PO DAILY for 14 Days, #14 Prov:HERNANDEZ BUCHANAN MD 09/07/18 Nicotine* (Nicotine* Patch) 7 mg/day Patch, 1 PATCH TRANSDERM DAILY for 28 Days Prov:HERNANDEZ BUCHANAN MD 09/07/18 Guaifenesin-Dextromethorphan* (Robitussin* DM) 100MG/10MG/5ML Syrup, 10 ML PO Q4H PRN for cough for 30 Days Prov:CHAVIS,KASSYANNETTE Vega SUPERVISING LAW ENFORCEMENT ANALYST 10/21/15 Amlodipine Besylate* (Amlodipine Besylate*) 10 Mg Tablet, 10 MG PO DAILY for 30 Days, TAB Prov:CHAVIS,KASSY V. SUPERVISING LAW ENFORCEMENT ANALYST 10/21/15 Nicotine* (Nicoderm* Patch) 1 Patch Patch, 1 PATCH TRANSDERM DAILY for 30 Days, PATCH Prov:DIXIE RICHARDSONAyan Mejia. 08/25/15 Hydralazine Hcl* (Hydralazine Hcl*) 25 Mg Tab, 100 MG PO BID for 30 Days, TAB Prov:DIXIE RICHARDSONAyan M. 08/25/15 Doxazosin Mesylate* (Cardura*) 2 Mg Tab, 4 MG PO HS for 30 Days, TAB Prov:DIXIE RICHARDSONAyan M. 08/25/15 Clopidogrel Bisulfate (Clopidogrel) 75 Mg Tab, 75 MG PO DAILY for 30 Days, TAB Prov:DIXIE RICHARDSONAayn Roberto. 08/25/15 Follow-up Plan * Resume your routine hemodialysis schedule on Wednesday and Fridays. If you have any questions, please ask before you leave. * Also followup with your primary doctor within the next 1-2 weeks. If you don't have one please let someone know, we can give you resources that may help you pick one. You may also call your insurance company to assign one to you. * Review your medication list with your nurse before leaving and if you need new prescriptions please let your nurse know. * I may have made changes to your home medications or given you new prescriptions, please let your primary doctor know as well. * Stay compliant with your medications and report any side effects to your PCP or pharmacist. * Return to the ER if you have any concerns and cannot reach your doctors or call your insurance company, they usually have a nurse that can help you. Primary Care Provider Not On Staff Doctor Time spent on discharge: > 30 minutes Pending Labs Laboratory Tests Test 12/31/18 05:28 White Blood Count 15.8 10^3/ul (4.8-10.8) Red Blood Count 4.19 10^6/ul (4.70-6.10) Hemoglobin 10.9 g/dl (14.0-18.0) Hematocrit 33.2 % (42.0-52.0) Mean Corpuscular Volume 79.2 fl (82.0-101.0) Mean Corpuscular Hemoglobin 26.0 pg (29.0-33.0) Mean Corpuscular Hemoglobin Concent 32.8 g/dl (32.0-37.0) Red Cell Distribution Width 17.8 % (11.5-14.5) Platelet Count 402 10^3/UL (140-415) Mean Platelet Volume 11.3 fl (7.4-10.4) Immature Granulocytes % 0.600 % (0.001-0.429) Neutrophils % 69.2 % (39.0-77.0) Lymphocytes % 13.2 % (15.0-51.0) Monocytes % 12.9 % (0.0-11.0) Eosinophils % 3.2 % (0.0-7.0) Basophils % 0.9 % (0.0-2.0) Nucleated Red Blood Cells % 0.0 /100WBC (0.0-0.0) Immature Granulocytes # 0.090 10^3/ul (0.0-0.031) Neutrophils # 10.9 10^3/ul (1.6-7.5) Lymphocytes # 2.1 10^3/ul (0.8-2.9) Monocytes # 2.0 10^3/ul (0.3-0.9) Eosinophils # 0.5 10^3/ul (0.0-0.5) Basophils # 0.1 10^3/ul (0.0-0.1) Nucleated Red Blood Cells # 0.0 10^3/ul (0.0-0.0) Sodium Level 136 mmol/L (135-144) Potassium Level 4.2 mmol/L (3.5-5.1) Chloride Level 100 mmol/L (97-110) Carbon Dioxide Level 21 mmol/L (21-31) Anion Gap 15 (5-13) Blood Urea Nitrogen 18 mg/dl (7-20) Creatinine 5.09 mg/dl (0.61-1.24) Est Glomerular Filtrat Rate mL/min 11 mL/min (>60) Glucose Level 115 mg/dl (70-220) Calcium Level 9.7 mg/dl (8.4-10.2) Magnesium Level 2.0 mg/dl (1.7-2.5) WILMER ALLISON MD Dec 31, 2018 16:06
== END 2018-12-31 14:00 | disposition home or self-care (01) | DRG 291 ==
LOC: E/R 06:17 → 6WM 07:22
PROVIDERS: ADMIT Internal Medicine; ATTEND Internal Medicine
PROC: 5A1D70Z Performance of Urinary Filtration, Intermittent, Less than 6 Hours Per Day (ICD-10-PCS; 2018-12-27)
PROC: 5A1D70Z Performance of Urinary Filtration, Intermittent, Less than 6 Hours Per Day (ICD-10-PCS; 2018-12-28)
PROC: 5A1D70Z Performance of Urinary Filtration, Intermittent, Less than 6 Hours Per Day (ICD-10-PCS; principal; 2018-12-30)
DX: I13.2 Hypertensive heart and chronic kidney disease with heart failure and with stage 5 chronic kidney disease, or end stage renal disease (principal); I50.23 Acute on chronic systolic (congestive) heart failure; N18.6 End stage renal disease; J96.91 Respiratory failure, unspecified with hypoxia; N17.9 Acute kidney failure, unspecified; E87.2 Acidosis; I95.9 Hypotension, unspecified; I42.9 Cardiomyopathy, unspecified; R07.9 Chest pain, unspecified; E78.5 Hyperlipidemia, unspecified; E87.70 Fluid overload, unspecified; J20.9 Acute bronchitis, unspecified; I25.10 Atherosclerotic heart disease of native coronary artery without angina pectoris; D50.9 Iron deficiency anemia, unspecified; F17.200 Nicotine dependence, unspecified, uncomplicated; I16.0 Hypertensive urgency; E87.6 Hypokalemia; R55 Syncope and collapse; Z99.2 Dependence on renal dialysis; Z79.82 Long term (current) use of aspirin; Z95.5 Presence of coronary angioplasty implant and graft; Z79.02 Long term (current) use of antithrombotics/antiplatelets
CPT/HCPCS: 36415; 71045; 80048; 82550; 82553; 82962; 83735; 84484; 85025; 87070; 87081; 87340; 90935; 93005; 96374; 97110; 97162; 97530; A4310; J1644; J1940; J2405; Q5105